=== PATIENT | male | born 1975 | race Caucasian/White ===

== ENCOUNTER 2017-04-14 19:22 | Inpatient (IN) ==
[2017-04-14] MEDS ORDERED: ONDANSETRON 4 MG/2 ML VIAL IV STA (19:59)
[2017-04-14] MEDS ORDERED: ASPIRIN 325 MG TABLET PO STA (19:59)
[2017-04-14] MEDS ORDERED: MORPHINE 2 MG/1 ML SYRINGE IV STA (19:59)
--- NOTE | 2017-04-14 20:02 | EKG Report ---
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
[2017-04-14] MEDS ORDERED: ONDANSETRON 4 MG/2 ML VIAL ONE (20:04)
[2017-04-14] MEDS ORDERED: ASPIRIN 325 MG TABLET ONE (20:05)
[2017-04-14] MEDS ORDERED: MORPHINE 2 MG/1 ML SYRINGE ONE (20:05)
--- NOTE | 2017-04-14 20:15 | Emergency Department Note ---
Dylon Real Mantricia, am scribing for, and in the presence of, Abe Miranda MD 20:04. Ruth Real Charles R, MD, personally performed the services described in this documentation, ascribed by Lili Osborne in my presence, and it is both accurate and complete . Arrival - Arrival Chief Complaint: Chest Pain Stated Complaint: NSTEMI ED Nursing Triage Note: Patient to ED as a transfer from [facility] ED for further evalution of NSTEMI. Patient started having LLQ ABD pain 2 days ago and today around lunch, his chest began hurting which prompted him to go to the ED at [facility]. Patient was found to have elevated troponin, first 0.052, and seond series 0.062. Upon arrrival to [place], patient rates his pain 2/10 and states it is a burning sensation. Mode of Arrival: Stretcher Limitations: No Limitations Source: Patient Time Seen by Provider: 04/14/17 19:41 - History of Present Illness HPI Narrative: Pt is a 42 y/o white male arriving to ED by EMS as a transfer from [facility] ED for further evaluation of NSTEMI. Pt initially had LLQ abdominal pain 2 days ago and then his chest began to hurt, which prompted him to go to ED. [facility] records show that pt had an elevated troponin of 0.052 and later 0.062. At time of exam , pt denies any abdominal pain or chest pain. When pt experienced the chest pain, he states that it felt like "an elephant was sitting on his chest" and he became very nausea and broke out into a cold sweat. He has no Hx of heart problems but confirms a FHx of heart problems. Pt has a PMHx of 17 kidney stones and sleep apnea but denies seeking any medical advice for his sleep apnea. No other complaints were reported to ED. Onset (ago): day(s) Consistency: constant Severity: mild Allergies/Adverse Reactions: Allergies Allergy/AdvReac Type Severity Reaction Status Date / Time Sulfa (Sulfonamide Allergy Unknown/Unable Verified 04/14/17 19:37 Antibiotics) to obtain Home Medications: Home Medications Medication Instructions Recorded Confirmed Type No Known Home Medications [No 04/14/17 04/14/17 History Known Home Medications] Review of System - Review of System 12 point system: reviewed and no additional remarkable complaints except as stated - Review of System Constitutional: Absent: chills, diaphoresis, fever Eyes: Absent: pain Respiratory: Absent: cough Cardiovascular: Present: chest pain Gastrointestinal: Present: abdominal pain. Absent: nausea, vomiting Musculoskeletal: Absent: arm pain, back pain, leg pain, neck pain Medical,Surgical,& Family Hx - Medical History Respiratory: History of: Asthma Genitourinary: History of: Kidney Stones Musculoskeletal: History of: Back/Neck Problems, Musculoskeletal Problems (back surgery) - Social History Smoking Status: Never smoker Frequency of Alcohol Use: None Type of Drug Use: None Exam Vital Signs: Vital Signs Temperature 98.6 F 04/14/17 19:25 Pulse Rate 92 H 04/14/17 19:25 Respiratory Rate 18 04/14/17 20:15 Blood Pressure 153/104 04/14/17 19:25 O2 Sat by Pulse Oximetry 93 L 04/14/17 19:25 - General General appearance: alert, in no apparent distress - Head Head exam: Present: atraumatic, normocephalic, normal inspection - Eye Eye exam: Present: normal appearance, PERRL, EOMI - ENT ENT exam: Present: normal exam, normal oropharynx, mucous membranes moist, TM's normal bilaterally, normal external ear exam - Neck Neck exam: Present: normal inspection, full ROM, trachea midline. Absent: tenderness - Chest Chest inspection: Present: normal inspection, symmetric chest wall rise. Absent : tenderness - Respiratory Respiratory exam: Present: normal lung sounds bilaterally - Cardiovascular Cardiovascular exam: Present: regular rate, normal rhythm, normal heart sounds - Abdominal Exam Abdominal exam: Present: soft, normal bowel sounds. Absent: distention, tenderness, guarding, rebound - Extremities Exam Extremities exam: Present: normal inspection, full ROM, normal capillary refill. Absent: tenderness, pedal edema - Back Exam Back exam: Present: normal inspection, full ROM. Absent: tenderness - Neurological Exam Neurological exam: Present: alert, oriented X3, CN II-XII intact, normal gait, reflexes normal - Psychiatric Psychiatric exam: Present: normal affect, normal mood - Skin Skin exam: Present: warm, dry, intact, normal color Course - Consultations Consultation #1: Dr. Moulton accept the patient wanted a chest CT PE scan done first before he was admitted Time: 20:13 Results - Labs CBC & BMP: 04/14/17 20:38 04/14/17 20:38 Lab Results: I have reviewed the patients labs - Diagnostic Findings Procedure: CT - chest: image reviewed by me, report reviewed by me (Negative CT PE) Disposition Clinical Impression: Chest pain, Elevated troponin, NSTEMI (non-ST elevated myocardial infarction) Case discussed with: patient, patient's family Disposition: Still a Patient Condition: Stable Time of Disposition: 20:15
[2017-04-14 20:45] LABS: Basophils # 0.1 10*3/uL (0.0-0.2); Basophils % 0.5 % (0.0-0.8); Eosinophils # 0.2 10*3/uL (0.0-0.87); Eosinophils % 1.5 % (0.00-10.9); Hemoglobin 17.1 GM/DL (14.0-18.0); Immature Granulocytes % 0.5 %; Immature Granulocytes Absolute 0.06 #; Lymphocytes # 3.1 10*3/uL (1.4-4.0); Lymphocytes % 26.3 % (21.2-54.2); Mean Corpuscular HGB Conc 35.6 GM/DL (32-36); Mean Corpuscular Hemoglobin 30 PG (27-34); Mean Corpuscular Volume 84.8 FL (87-102); Mean Platelet Volume 9.6 FL (9.6-12.0); Monocytes # 0.9 10*3/uL (0.11-0.8); Monocytes % 7.5 % (1.7-12.7); Neutrophils # 7.4 10*3/uL (1.4-7.4); Neutrophils % 63.7 % (38.7-73.9); Platelet Count 209 T/CUMM (130-400); Red Blood Count 5.66 MC/CUMM (3.8-5.5); Red Cell Distribution Width 12.9 % (9.3-17.3); White Blood Count 11.7 T/CUMM (4-12)
[2017-04-14 21:09] LABS: Albumin 3.6 G/DL (3.4-5.0); Bilirubin,Total 0.4 MG/DL (0.2-1.0); Calcium 8.9 MG/DL (8.5-10.1); Magnesium 2.2 MG/DL (1.8-2.4); Osmolality,Calculated 273.8 MOS/KG (273-304); Potassium 3.7 MMOL/L (3.5-5.1); Total Protein 6.9 G/DL (6.4-8.3)
[2017-04-15] MEDS ORDERED: MAGNESIUM SULF RIDER 4 GM in PREMIX 1 EACH IV PRN (01:12)
[2017-04-15] MEDS ORDERED: ONDANSETRON 4 MG/2 ML VIAL IV PRN (01:12)
[2017-04-15] MEDS ORDERED: POTASSIUM CHLORIDE 20 MEQ TABLET PO PRN (01:12)
[2017-04-15] MEDS ORDERED: MAGNESIUM SULF RIDER 2 GM in PREMIX 1 EACH IV PRN ×2 (01:12→08:57)
[2017-04-15] MEDS ORDERED: MORPHINE 2 MG/1 ML SYRINGE IV PRN (01:12)
[2017-04-15] MEDS: NITROGLYCERIN 2% OINT 1 INCH/GM PACK TOP SCH ×4 (01:31→19:46)
--- NOTE | 2017-04-15 01:39 | EKG Report ---
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
[2017-04-15] MEDS ORDERED: SODIUM CHLORIDE 0.9% 1,000 ML IV SCH (02:00)
[2017-04-15] MEDS ORDERED: ENOXAPARIN 120 MG/0.8 ML SYRINGE SUBCUT SCH (02:00)
[2017-04-15 02:01] LABS: Basophils % 0.4 % (0.0-0.8); Eosinophils # 0.3 10*3/uL (0.0-0.87); Eosinophils % 2.3 % (0.00-10.9); Hematocrit 47.1 VOL% (42.0-52.0); Hemoglobin 16.6 GM/DL (14.0-18.0); Immature Granulocytes % 0.6 %; Immature Granulocytes Absolute 0.07 #; Lymphocytes # 3.2 10*3/uL (1.4-4.0); Lymphocytes % 28.8 % (21.2-54.2); Mean Corpuscular HGB Conc 35.2 GM/DL (32-36); Mean Corpuscular Hemoglobin 30 PG (27-34); Mean Corpuscular Volume 85.5 FL (87-102); Mean Platelet Volume 9.7 FL (9.6-12.0); Monocytes # 1.1 10*3/uL (0.11-0.8); Monocytes % 9.7 % (1.7-12.7); Neutrophils # 6.4 10*3/uL (1.4-7.4); Neutrophils % 58.2 % (38.7-73.9); Platelet Count 201 T/CUMM (130-400); Red Blood Count 5.51 MC/CUMM (3.8-5.5); Red Cell Distribution Width 12.8 % (9.3-17.3); White Blood Count 10.9 T/CUMM (4-12)
[2017-04-15 02:25] LABS: Albumin 3.4 G/DL (3.4-5.0); Bilirubin,Total 0.4 MG/DL (0.2-1.0); Calcium 8.3 MG/DL (8.5-10.1); Osmolality,Calculated 272.8 MOS/KG (273-304); Potassium 3.6 MMOL/L (3.5-5.1); Risk Ratio 5.96; Total Protein 6.4 G/DL (6.4-8.3); VLDL CHOLESTEROL 63.8 MG/DL
--- NOTE | 2017-04-15 06:24 | EKG Report ---
Stationary ECG Study 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
--- NOTE | 2017-04-15 06:58 | CT Report ---
CT chest PE study Indication: Chest pain, shortness of breath Comparison: None Technique: Multiple axial tomographic images of the chest were obtained after the administration of 80 cc Omnipaque 350 intravenous contrast. PE protocol followed. Coronal and sagittal maximum intensity projection images provided. Findings: No segmental or larger pulmonary embolism demonstrated. Heart size appears within normal limits. No significantly enlarged lymph nodes by CT size criteria. No evidence of aortic dissection. No focal consolidation, pleural effusion, or pneumothorax. Visualized upper abdomen demonstrates no acute abnormality. Visualized osseous and surrounding soft tissue structures demonstrate no acute abnormality. IMPRESSION: No segmental or larger pulmonary embolism demonstrated. Preliminary report was issued by [facility]. The CT exam was performed using one or more of the following dose reduction techniques: Automated exposure control, adjustment of the mA and/or kV according to patient size, or use of iterative reconstruction technique. PROCEDURE INTERPRETED AT [facility] DEPARTMENT OF RADIOLOGY Final Report Signed by: Dr Tevin Hull
--- NOTE | 2017-04-15 08:21 | XRay Report ---
XR chest 1V portable Indication: SOB Comparison: Chest x-ray dated April 14, 2017 Technique: Single frontal view of the chest. Findings: The cardiomediastinal silhouette is stable in configuration. Continued elevation of the right hemidiaphragm. No focal consolidation, pleural effusion, or pneumothorax. Visualized osseous and surrounding soft tissue structures appear grossly unchanged. IMPRESSION: No acute cardiopulmonary process demonstrated. Elevation of the right hemidiaphragm. PROCEDURE INTERPRETED AT [facility] DEPARTMENT OF RADIOLOGY Final Report Signed by: Dr Tevin Hull
--- NOTE | 2017-04-15 08:50 | Cardiology History & Physical ---
Assessment and Plan - Time spent with patient Time spent with patient: Greater than 30 minutes (1) Hypertension Status: Chronic Assessment and plan: SEE PLAN OF CARE LISTED BELOW Current Visit: Yes (2) Dyslipidemia Status: Chronic Assessment and plan: SEE PLAN OF CARE LISTED BELOW Current Visit: Yes (3) Blood glucose elevated Status: Acute Assessment and plan: SEE PLAN OF CARE LISTED BELOW Current Visit: Yes (4) Obesity Status: Chronic Assessment and plan: SEE PLAN OF CARE LISTED BELOW Current Visit: Yes Qualifiers: Obesity classification: adult class 3 (BMI >= 40) Body mass index: BMI 40.0 -44.9 (5) Sleep apnea Status: Chronic Assessment and plan: SEE PLAN OF CARE LISTED BELOW Current Visit: Yes (6) Chest pain Status: Acute Assessment and plan: SEE PLAN OF CARE LISTED BELOW Current Visit: Yes (7) Elevated troponin Status: Acute Assessment and plan: SEE PLAN OF CARE LISTED BELOW Current Visit: Yes History of Present Illness Chief complaint: chest pain, elevated troponin 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 History of frequent kidney stones, untreated sleep apnea but otherwise denies significant medical problems. No known prior history of coronary artery disease. Admitted April 14, 2017 to telemetry after being evaluated at [facility] for complaints of chest pain. Cardiac biomarkers were mildly elevated (troponin 0.062 initially, now 0.253). Wednesday, patient began to experience left lower quadrant abdominal pain, diarrhea after eating a " Blooming Onion." This lasted until Wednesday morning. Wednesday afternoon, while sitting, he began to experience pressure in the center of his chest described as "an elephant sitting on my chest." There was no radiation but was associated with shortness of breath and diaphoresis. He could identify no aggravating nor any alleviating factors. He rates the discomfort as a 7 on a scale of 1-10. Currently chest pain-free. EKG does not reveal AL. He has been given therapeutic dose of Lovenox, aspirin, beta-tulio, nitrates and lipid-lowering agent. 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 D-dimer was elevated at 1.5. Underwent CT chest, PE protocol which revealed no evidence of pulmonary emboli. Patient does have untreated sleep apnea, previously diagnosed but unable to wear mask. Mallampati Airway class III-IV, neck circumference greater than 44 cm. Blood glucose levels elevated to 41. No prior history of diabetes. Will add hemoglobin A1c. Echocardiogram. At this time, I will keep the patient NPO, will further discuss with Dr. Harris and await additional recommendations. Should the patient need heart catheterization, may consider radial approach given patient's untreated sleep apnea. ASSESSMENT/PLAN: 1. CHEST PAIN - concerning for angina. 2. ELEVATED TROPONIN -suspicious for NST TIMMY. Continue to follow. Possible heart catheterization this morning. 3. UNTREATED HYPERTENSION - beta-blockade was initiated this morning. 4. DYSLIPIDEMIA - LDL 91. Should the patient have heart disease and/or diabetes, he will be diagnosed with dyslipidemia we will continue a lipid- lowering 5. ELEVATED GLUCOSE - hemoglobin A1c. This will be a new diagnosis is diabetes diagnosis is made. 6. UNTREATED SLEEP APNEA - will consult sleep medicine as the patient will definitely benefit from routine use of a sleep device. Home Medications Medication Instructions Recorded Confirmed Type No Known Home Medications [No 04/14/17 04/14/17 History Known Home Medications] Allergies Allergy/AdvReac Type Severity Reaction Status Date / Time Sulfa (Sulfonamide Allergy Unknown/Unable Verified 04/14/17 19:37 Antibiotics) to obtain Review of systems: REVIEW OF SYSTEMS: - Constitutional Constitutional: Present: Fatigue. Absent: syncope, anorexia, night sweats - EENT Eyes: Absent: blurry vision, loss of vision, diplopia Ears: Absent: decreased hearing, ear pain, ear discharge - Cardiovascular Cardiovascular: Present: chest pain at rest and with exertion, dyspnea on exertion. Denies edema, palpitations. Absent: chest pain with deep breath, claudication - Respiratory Respiratory: Present: MISHRA, denies cough. Absent: wheezing, hemoptysis, change in phlegm color - Gastrointestinal Gastrointestinal: Present: abdominal pain, hematemesis, hematochezia, melena, change in bowel habits, nausea - Genitourinary Genitourinary: Absent: difficulty urinating, dysuria, urinary hesitancy, flank pain - Musculoskeletal Musculoskeletal: Present: back pain Absent: joint swelling, muscle cramps, muscle weakness - Neurological Neurological: Present: normal gait without frequent falls. Absent: dizziness, hemiparesis - Psychiatric Psychiatric: Absent: anxiety, depression, difficulty concentrating - Endocrine Endocrine: Present: fatigue. Absent: cold intolerance, heat intolerance, polyuria, polyphagia, polydipsia - Hematologic/Lymphatic Hematologic/Lymphatic: Present: easy bruising. Absent: easy bleeding -Integumentary Integumentary: Absent: lesions, rashes, skin breakdown Medical,Surgical,& Family Hx - Medical History Cardio: History of: Hypertension No history of: CAD, AL Respiratory: History of: Asthma Genitourinary: History of: Kidney Stones (pt states has had kidney stones 17 times) Musculoskeletal: History of: Back/Neck Problems, Musculoskeletal Problems (back surgery) Hematology: No history of: Anemia, Blood Disorders Other: No history of: Cancer - Family History Family History: Reports;: Additional Family History (father-CHF, brother-AL) - Social History Smoking Status: Never smoker Have you smoked in the last 12 months: No Frequency of Alcohol Use: None Type of Drug Use: None Marital Status: Lives With:: Spouse Functional capacity: independent ambulation Cardiology Physical Exam - Constitutional Vitals: Vital Signs Temp Pulse Resp BP Pulse Ox 97.6 F 80 18 124/70 93 L 04/15/17 08:00 04/15/17 08:00 04/15/17 08:00 04/15/17 08:00 04/15/17 08:00 Intake and Output 04/14/17 04/15/17 04/15/17 23:59 07:59 15:59 Intake Total 200 / 200 Output Total 400 / 400 Balance -200 / -200 Intake: Oral 200 / 200 Output: Urine 400 / 400 Other: # Bowel Movements 1 Weight 129.274 kg 131.315 kg Patient Weight 04/15/17 23:59 Weight 131.315 kg Exam: General: [Appears well with no apparent distress.] [Pleasant and cooperative. ] [Appears comfortable.] HEENT: [PERRL, normocephalic, atraumatic. Mucous membranes moist. No jaundice noted. Conjunctiva moist and clear, sclerae anicteric. Mallampati Airway Class III-IV, neck circumference >44cm] Neck: Unable to assess for JVD due to habitus. No thyromegaly or lymphadenopathy noted. No carotid bruit appreciated Cardiac: [Regular rate and rhythm.] [No murmur rub or gallop.] Lungs: [Clear to auscultation without accessory muscle use to assist the respiratory pattern.] Not requiring oxygen Abdomen: Soft, bowel sounds normoactive. Nontender and nondistended. Epigastric tenderness to touch. No abdominal bruit or thrill noted. No masses noted. Musculoskeletal: No fluid collection. Decreased range of motion is noted. Extremities: No clubbing, cyanosis noted. [ No edema noted.] Upper extremity pulses 2+. Lower extremity pulses 2+. Capillary refill less than 3 seconds. Skin: No unusual lesions or rashes. No skin breakdown appreciated. Neuro: Awake, alert and oriented 3. Moves all extremities well without hemiparesis or paralysis. No essential tremor is appreciated. Result/EKG - Labs CBC & BMP: 04/15/17 01:46 04/15/17 01:46 Lab Results: I have reviewed the past 24 hour labs Labs: Laboratory Results - last 24 hr 04/14/17 04/14/17 04/14/17 00:08 20:38 20:38 WBC RBC Hgb Hct MCV MCH MCHC RDW Plt Count MPV Neut % (Auto) Lymph % (Auto) [place] % (Auto) Eos % (Auto) Baso % (Auto) Neut # (Auto) Lymph # (Auto) [place] # (Auto) Eos # (Auto) Baso # (Auto) Immature Gran % Nucleated RBC % Immature Gran # Nucleated RBCs # Immature Plt Fraction D-Dimer, Quantitative 1.3 Sodium 137 Potassium 3.7 Chloride 101 Carbon Dioxide 28 Anion Gap 11.7 BUN 7 Creatinine 0.70 GFR Calculation 165 BUN/Creatinine Ratio 10.00 Glucose 149 H Calculated Osmolality 273.8 Calcium 8.9 Magnesium 2.2 Total Bilirubin 0.40 AST 32 ALT 45 Alkaline Phosphatase 35 L Troponin I 0.234 H B-Natriuretic Peptide Total Protein 6.9 Albumin 3.6 Globulin 3.3 Albumin/Globulin Ratio 1.0 L Triglycerides Cholesterol LDL Cholesterol VLDL Cholesterol HDL Cholesterol Heart Disease Risk Ratio Lipase 102.0 Free T4 TSH 3rd Generation 04/14/17 04/14/17 04/14/17 20:38 20:38 20:38 WBC 11.7 RBC 5.66 H Hgb 17.1 Hct 48.0 MCV 84.8 L MCH 30 MCHC 35.6 RDW 12.9 Plt Count 209 MPV 9.6 Neut % (Auto) 63.7 Lymph % (Auto) 26.3 [place] % (Auto) 7.5 Eos % (Auto) 1.5 Baso % (Auto) 0.5 Neut # (Auto) 7.4 Lymph # (Auto) 3.1 [place] # (Auto) 0.9 H Eos # (Auto) 0.2 Baso # (Auto) 0.1 Immature Gran % 0.5 Nucleated RBC % 0.0 Immature Gran # 0.06 Nucleated RBCs # 0.00 Immature Plt Fraction 0.0 D-Dimer, Quantitative Sodium Potassium Chloride Carbon Dioxide Anion Gap BUN Creatinine GFR Calculation BUN/Creatinine Ratio Glucose Calculated Osmolality Calcium Magnesium Total Bilirubin AST ALT Alkaline Phosphatase Troponin I 0.139 H D B-Natriuretic Peptide 7 Total Protein Albumin Globulin Albumin/Globulin Ratio Triglycerides Cholesterol LDL Cholesterol VLDL Cholesterol HDL Cholesterol Heart Disease Risk Ratio Lipase Free T4 TSH 3rd Generation 04/15/17 04/15/17 04/15/17 01:46 01:46 01:46 WBC RBC Hgb Hct MCV MCH MCHC RDW Plt Count MPV Neut % (Auto) Lymph % (Auto) [place] % (Auto) Eos % (Auto) Baso % (Auto) Neut # (Auto) Lymph # (Auto) [place] # (Auto) Eos # (Auto) Baso # (Auto) Immature Gran % Nucleated RBC % Immature Gran # Nucleated RBCs # Immature Plt Fraction D-Dimer, Quantitative Sodium Potassium Chloride Carbon Dioxide Anion Gap BUN Creatinine GFR Calculation BUN/Creatinine Ratio Glucose Calculated Osmolality Calcium Magnesium Total Bilirubin AST ALT Alkaline Phosphatase Troponin I 0.253 H D B-Natriuretic Peptide Total Protein Albumin Globulin Albumin/Globulin Ratio Triglycerides Cholesterol LDL Cholesterol VLDL Cholesterol HDL Cholesterol Heart Disease Risk Ratio Lipase Free T4 1.40 TSH 3rd Generation 2.650 04/15/17 04/15/17 04/15/17 01:46 01:46 01:46 WBC 10.9 RBC 5.51 H Hgb 16.6 Hct 47.1 MCV 85.5 L MCH 30 MCHC 35.2 RDW 12.8 Plt Count 201 MPV 9.7 Neut % (Auto) 58.2 Lymph % (Auto) 28.8 [place] % (Auto) 9.7 Eos % (Auto) 2.3 Baso % (Auto) 0.4 Neut # (Auto) 6.4 Lymph # (Auto) 3.2 [place] # (Auto) 1.1 H Eos # (Auto) 0.3 Baso # (Auto) 0.0 Immature Gran % 0.6 Nucleated RBC % 0.0 Immature Gran # 0.07 Nucleated RBCs # 0.00 Immature Plt Fraction 0.0 D-Dimer, Quantitative Sodium 137 Potassium 3.6 Chloride 100 Carbon Dioxide 30 Anion Gap 10.6 BUN 7 Creatinine 0.80 GFR Calculation 156 BUN/Creatinine Ratio 8.00 Glucose 143 H Calculated Osmolality 272.8 L Calcium 8.3 L Magnesium 2.0 Total Bilirubin 0.40 AST 45 H ALT 48 Alkaline Phosphatase 30 L Troponin I B-Natriuretic Peptide < 2 L Total Protein 6.4 Albumin 3.4 Globulin 3.0 Albumin/Globulin Ratio 1.1 Triglycerides 319 H Cholesterol 161 LDL Cholesterol 91.0 VLDL Cholesterol 63.8 HDL Cholesterol 27 L Heart Disease Risk Ratio 5.96 Lipase Free T4 TSH 3rd Generation - Diagnostic Findings Procedure: Chest x-ray: report reviewed by me - EKG EKG results: interpreted by me EKG shows: sinus rhythm
[2017-04-15] MEDS ORDERED: POTASSIUM CHLORIDE RIDER 10 MEQ in PREMIX 1 EACH IV PRN (08:57)
[2017-04-15] MEDS ORDERED: DIAZEPAM 5 MG TABLET PO ONE (08:57)
[2017-04-15] MEDS ORDERED: diphenhydrAMINE CAP 25 MG CAPSULE PO ONE (08:57)
[2017-04-15] MEDS ORDERED: LISINOPRIL/HCTZ 10-12.5 MG TABLET PO SCH (09:00)
[2017-04-15] MEDS ORDERED: ASPIRIN EC 325 MG TABLET PO SCH (09:00)
[2017-04-15] MEDS ORDERED: HEPARIN/NACL 0.9% 2 UNITS/ML 1,000 ML IV ONE (09:33)
[2017-04-15] MEDS ORDERED: NITROGLYCERIN DRIP 50 MG/250 ML BOTTLE IV ONE (09:41)
[2017-04-15] MEDS ORDERED: LIDOCAINE 1% 20 ML VIAL ONE (09:41)
[2017-04-15] MEDS ORDERED: VERAPAMIL 5 MG/2 ML VIAL ONE (09:42)
[2017-04-15] MEDS: ROSUVASTATIN 20 MG TABLET PO SCH ×3 (09:44→21:21)
[2017-04-15] MEDS: PANTOPRAZOLE 40 MG TABLET PO SCH (09:51)
[2017-04-15] MEDS: CARVEDILOL 6.25 MG TABLET PO SCH ×2 (09:51→21:22)
[2017-04-15] MEDS ORDERED: MIDAZOLAM 2 MG/2 ML VIAL ONE (10:00)
[2017-04-15] MEDS ORDERED: fentaNYL 100 MCG/2 ML VIAL ONE (10:00)
--- NOTE | 2017-04-15 10:09 | History and Physical Update ---
Sedation H&P Update - History and Physical H&P was reviewed, the patient examined and there: are no changes in the patients condition since last H&P was completed. - Sedation Plan for Sedation: moderate Patient Consent: Procedure disscussed with patient and patinet has consented., Risks and benefits were discussed with patient,including infection,, bleeding, injury to surrounding structures, seizure, temporary nerve, Patient understands and accepts potential risks/benefits and agrees to, proceed. ASA Class: III Airway Assessment: Class IV: Only hard palate visible
--- NOTE | 2017-04-15 10:43 | Cardiac Catheterization ---
Date of Procedure:: 04/15/17 Pre-op Diagnosis: Patient with minimally elevated troponins and symptoms suspicious for angina with risk factors Post-op diagnosis: same Procedure: Procedures performed: 1: Left heart catheterization 2: Coronary arteriography 3: Left ventriculography After obtaining informed consent the patient was brought to the cardiac catheterization lab where the right wrist was prepped and draped in the usual sterile fashion. Using intravenous sedation and local anesthesia a needle was inserted into the right radial artery and a guidewire was positioned without difficulty. A 5 Burkinan sheath was advanced over the guidewire and positioned in the right radial artery without difficulty. Patient was given verapamil and nitroglycerin intra-arterial as a vasodilator. At this point a Isaac catheter was advanced over a guidewire under fluoroscopic control to the ascending aorta where the left main coronary ostium was engaged and multiple angiograms were obtained in multiple angulations. Next this catheter was manipulated into the right coronary artery and multiple angiograms of the right coronary artery was undertaken in multiple views. After adequate angiograms the right coronary were obtained this catheter then with the assistance of a guidewire was advanced across the aortic valve into the left ventricle and a left ventriculogram was obtained in the LAWTON projection injecting 30 mL of contrast at 12 mL/s. After adequate ventriculography was obtained this catheter was pulled back from the ventricle to the aorta under hemodynamic monitoring and removed. Patient then underwent T R band application 2 mm above the radial skin entry site. 15 mL of air was in injected into the hemo band and the radial sheath was pulled. Air was removed from the TR band and 1 mL intervals until a arterial flash was noted. Additional 2 mL of air were added back to the TR band at this point. The patient tolerated procedure well. His right hand was warm with good capillary fill noted. Patient was transferred to the holding area having suffered no significant immediate complications. Hemodynamics: Please see accompanying data sheet Coronary angiography: Left coronary artery: Left main coronary artery is well-developed with a 30% area of stenosis in its distal portion. The circumflex is noted to have an area of discrete 80% stenosis just proximal to the takeoff of a moderate-sized first marginal branch. The remainder of the circumflex appears to be free of significant obstructing lesions. The left anterior descending coronary artery is a large vessel that extends around the apex of the ventricle. The left anterior descending coronary has a complex 90% stenosis at the takeoff of a large first diagonal. The first diagonal has an ostial 99% area stenosis with CELIA grade II flow down the vessel noted. The remainder of the LAD and its branches appear to be free of significant obstructing lesions. Right coronary artery: The right coronary is a large dominant vessel possesses a tubular area of 80% stenosis in its distal portion. The remainder of the right coronary artery is free of significant obstructing lesions. Left ventriculography: After injection of contrast in the left ventricle is noted be of normal size with normal contractility. Mitral and aortic structures appear normal by ventriculography. Conclusions: 1: Three-vessel coronary disease as described above with significant complex LAD disease and ostial diagonal as well as ostial marginal and disal right coronary disease for evaluation related to surgical revascularization. 2: Normal left ventricular systolic function and ejection fraction in the 55% range 3: Normal end-diastolic pressures at rest. Discussion and recommendations: This patient presents with chest pain and elevated troponins. He has multiple risk factors for premature coronary disease. He has three-vessel coronary disease as described above which I think is best approached surgically given the number and complexity of the stenosed vessel segments. We will ask Dr. Cuello to review. Findings have been reviewed with the patient and with his family. Surgeon / Physician: Bon Harris - Medications / Follow-up
--- NOTE | 2017-04-15 13:25 | Cardiothoracic Progress Note ---
Cardiothoracic Subjective Interval history: Patient is a 42-year-old man who had a severe episode of substernal chest pain necessitating hospitalization and the observation that his troponins were mildly elevated. He was transferred to this hospital for evaluation including cardiac catheterization which demonstrated severe triple-vessel coronary artery disease. Patient has been referred for bypass surgery and I agree that this is the best course. We will plan to keep him in the hospital because of his recent acute KS but it will probably be early next week before I can do the surgery either Wednesday or Wednesday. I should be able to let them know for sure either tomorrow or Wednesday. I discussed all that with the patient and with his and family. I think that there agreeable to staying in the hospital and to proceeding with surgery. Exam (Progress Note) - Constitutional Vitals: Period Temp Pulse Resp BP Sys/Freeman Pulse Ox Last 24 Hr 96.8 F-98.6 F 80-95 18-24 124-159/57-104 92-98 Result/EKG - Labs CBC & BMP: 04/15/17 01:46 04/15/17 01:46 Labs: Laboratory Results - last 24 hr 04/14/17 04/14/17 04/14/17 00:08 20:38 20:38 WBC RBC Hgb Hct MCV MCH MCHC RDW Plt Count MPV Neut % (Auto) Lymph % (Auto) [place] % (Auto) Eos % (Auto) Baso % (Auto) Neut # (Auto) Lymph # (Auto) [place] # (Auto) Eos # (Auto) Baso # (Auto) Immature Gran % Nucleated RBC % Immature Gran # Nucleated RBCs # Immature Plt Fraction D-Dimer, Quantitative 1.3 Sodium 137 Potassium 3.7 Chloride 101 Carbon Dioxide 28 Anion Gap 11.7 BUN 7 Creatinine 0.70 GFR Calculation 165 BUN/Creatinine Ratio 10.00 Glucose 149 H Hemoglobin A1c Calculated Osmolality 273.8 Calcium 8.9 Magnesium 2.2 Total Bilirubin 0.40 AST 32 ALT 45 Alkaline Phosphatase 35 L Troponin I 0.234 H B-Natriuretic Peptide Total Protein 6.9 Albumin 3.6 Globulin 3.3 Albumin/Globulin Ratio 1.0 L Triglycerides Cholesterol LDL Cholesterol VLDL Cholesterol HDL Cholesterol Heart Disease Risk Ratio Lipase 102.0 Free T4 TSH 3rd Generation 04/14/17 04/14/17 04/14/17 20:38 20:38 20:38 WBC 11.7 RBC 5.66 H Hgb 17.1 Hct 48.0 MCV 84.8 L MCH 30 MCHC 35.6 RDW 12.9 Plt Count 209 MPV 9.6 Neut % (Auto) 63.7 Lymph % (Auto) 26.3 [place] % (Auto) 7.5 Eos % (Auto) 1.5 Baso % (Auto) 0.5 Neut # (Auto) 7.4 Lymph # (Auto) 3.1 [place] # (Auto) 0.9 H Eos # (Auto) 0.2 Baso # (Auto) 0.1 Immature Gran % 0.5 Nucleated RBC % 0.0 Immature Gran # 0.06 Nucleated RBCs # 0.00 Immature Plt Fraction 0.0 D-Dimer, Quantitative Sodium Potassium Chloride Carbon Dioxide Anion Gap BUN Creatinine GFR Calculation BUN/Creatinine Ratio Glucose Hemoglobin A1c Calculated Osmolality Calcium Magnesium Total Bilirubin AST ALT Alkaline Phosphatase Troponin I 0.139 H D B-Natriuretic Peptide 7 Total Protein Albumin Globulin Albumin/Globulin Ratio Triglycerides Cholesterol LDL Cholesterol VLDL Cholesterol HDL Cholesterol Heart Disease Risk Ratio Lipase Free T4 TSH 3rd Generation 04/15/17 04/15/17 04/15/17 01:43 01:46 01:46 WBC RBC Hgb Hct MCV MCH MCHC RDW Plt Count MPV Neut % (Auto) Lymph % (Auto) [place] % (Auto) Eos % (Auto) Baso % (Auto) Neut # (Auto) Lymph # (Auto) [place] # (Auto) Eos # (Auto) Baso # (Auto) Immature Gran % Nucleated RBC % Immature Gran # Nucleated RBCs # Immature Plt Fraction D-Dimer, Quantitative Sodium Potassium Chloride Carbon Dioxide Anion Gap BUN Creatinine GFR Calculation BUN/Creatinine Ratio Glucose Hemoglobin A1c 9.4 H Calculated Osmolality Calcium Magnesium Total Bilirubin AST ALT Alkaline Phosphatase Troponin I 0.253 H D B-Natriuretic Peptide Total Protein Albumin Globulin Albumin/Globulin Ratio Triglycerides Cholesterol LDL Cholesterol VLDL Cholesterol HDL Cholesterol Heart Disease Risk Ratio Lipase Free T4 TSH 3rd Generation 2.650 04/15/17 04/15/17 04/15/17 01:46 01:46 01:46 WBC 10.9 RBC 5.51 H Hgb 16.6 Hct 47.1 MCV 85.5 L MCH 30 MCHC 35.2 RDW 12.8 Plt Count 201 MPV 9.7 Neut % (Auto) 58.2 Lymph % (Auto) 28.8 [place] % (Auto) 9.7 Eos % (Auto) 2.3 Baso % (Auto) 0.4 Neut # (Auto) 6.4 Lymph # (Auto) 3.2 [place] # (Auto) 1.1 H Eos # (Auto) 0.3 Baso # (Auto) 0.0 Immature Gran % 0.6 Nucleated RBC % 0.0 Immature Gran # 0.07 Nucleated RBCs # 0.00 Immature Plt Fraction 0.0 D-Dimer, Quantitative Sodium 137 Potassium 3.6 Chloride 100 Carbon Dioxide 30 Anion Gap 10.6 BUN 7 Creatinine 0.80 GFR Calculation 156 BUN/Creatinine Ratio 8.00 Glucose 143 H Hemoglobin A1c Calculated Osmolality 272.8 L Calcium 8.3 L Magnesium 2.0 Total Bilirubin 0.40 AST 45 H ALT 48 Alkaline Phosphatase 30 L Troponin I B-Natriuretic Peptide Total Protein 6.4 Albumin 3.4 Globulin 3.0 Albumin/Globulin Ratio 1.1 Triglycerides 319 H Cholesterol 161 LDL Cholesterol 91.0 VLDL Cholesterol 63.8 HDL Cholesterol 27 L Heart Disease Risk Ratio 5.96 Lipase Free T4 1.40 TSH 3rd Generation 04/15/17 01:46 WBC RBC Hgb Hct MCV MCH MCHC RDW Plt Count MPV Neut % (Auto) Lymph % (Auto) [place] % (Auto) Eos % (Auto) Baso % (Auto) Neut # (Auto) Lymph # (Auto) [place] # (Auto) Eos # (Auto) Baso # (Auto) Immature Gran % Nucleated RBC % Immature Gran # Nucleated RBCs # Immature Plt Fraction D-Dimer, Quantitative Sodium Potassium Chloride Carbon Dioxide Anion Gap BUN Creatinine GFR Calculation BUN/Creatinine Ratio Glucose Hemoglobin A1c Calculated Osmolality Calcium Magnesium Total Bilirubin AST ALT Alkaline Phosphatase Troponin I B-Natriuretic Peptide < 2 L Total Protein Albumin Globulin Albumin/Globulin Ratio Triglycerides Cholesterol LDL Cholesterol VLDL Cholesterol HDL Cholesterol Heart Disease Risk Ratio Lipase Free T4 TSH 3rd Generation Quality Measures - VTE Contraindication to Pharmacological VTE Prophylaxis: High Risk of Bleeding Specialty Discharge - Follow Up or Referrals
--- NOTE | 2017-04-15 14:00 | Sleep Medicine Consult ---
Assessment and Plan (1) Sleep apnea Status: Chronic Assessment and plan: Mr. Peterson has a positive history of obstructive sleep apnea diagnosed originally in 2004 under the direction of Dr. Akil Salmon. At that time, his apnea was moderate severity with a diagnostic AHI of 20.8 but with profound oxygen desaturations as low as 60%. He reports significant weight loss since the time of his diagnostic study and states his snoring has improved drastically with weight loss. He is not certain that he still suffers from obstructive sleep apnea. Since he will be hospitalized until his coronary artery bypass grafting, I recommend a HSAT to determine his sleep apnea status. If positive, treatment can be initiated and monitored. I discussed in detail the increased health risks he faces especially in regards to heart disease if his sleep apnea remains untreated. Both he and his verbalized understanding and do agree for further testing. Current Visit: Yes History of Present Illness Chief complaint: hx WILLAM History of present illness: Mr. Peterson is a 42 year old male who was admitted yesterday through the emergency room with shortness of breath and chest pain. He underwent heart catheterization earlier today and was found to have significant three-vessel disease which will require coronary artery bypass grafting. He has a known history of obstructive sleep apnea and was [place] [address] Akil Salmon. At that time, he had a diagnostic respiratory disturbance index of 20.8 along with oxygen desaturations as low as 60%. CPAP therapy was prescribed for treatment. He utilized a CPAP device for approximately 2 or 3 months but developed intolerance to therapy due to condensation in his tubing. He did not maintain follow-up appointments with Dr. Salmon in regards to his sleep apnea. His his , who is at his bedside admits that her has continued to snore over the years but she denies any apnea during his sleep. He has lost significant weight from his original study and states his snoring improved with weight loss. He does have a set sleep schedule going to bed at 9 PM and awakening at 5:30 AM. He denies any difficulty initiating sleep but does have frequent sleep disruption. He has nocturia up to 3 or 4 times per night. He does not awaken with any significant headaches but does have fatigue throughout the day. 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 Wednesday afternoons he will often take a long nap if time allows. At times, he experiences some discomfort in his lower extremities but denies that being a factor in his ability to sleep. His medical history is positive for ischemic heart disease, dyslipidemia, obesity, elevated blood glucose and obesity. He has been followed by Dr. Harris from cardiology. Home Medications Medication Instructions Recorded Confirmed Type No Known Home Medications [No 04/14/17 04/14/17 History Known Home Medications] Allergies Allergy/AdvReac Type Severity Reaction Status Date / Time Sulfa (Sulfonamide Allergy Unknown/Unable Verified 04/14/17 19:37 Antibiotics) to obtain - Constitutional Constitutional: Present: daytime sleepiness, fatigue, night sweats, weight loss. Absent: headache(s), stops breathing during sleep - EENT Nose, mouth and throat: Absent: nasal congestion - Cardiovascular Cardiovascular: Present: dyspnea on exertion. Absent: chest pain at rest, orthopnea, palpitations - Respiratory Respiratory: Present: dyspnea on exertion, snoring. Absent: cough, wheezing - Gastrointestinal Gastrointestinal: Present: heartburn. Absent: abdominal pain, constipation, diarrhea - Genitourinary Genitourinary: Present: nocturia, urinary frequency - Musculoskeletal Musculoskeletal: Present: arthralgias. Absent: muscle cramps - Neurological Neurological: Absent: headache(s), memory loss, syncope - Psychiatric Psychiatric: Absent: anxiety, depression - Endocrine Endocrine: Absent: cold intolerance, heat intolerance Exam ([place]) H&P - Constitutional Vitals: Period Temp Pulse Resp BP Sys/Freeman Pulse Ox Last 24 Hr 96.8 F-98.6 F 80-95 18-24 124-159/57-104 92-98 General appearance: over weight - Head Head exam: Present: normal inspection, normocephalic - Eye Pupils: Present: PRADIP - ENT ENT exam: Present: other (Mallampati class III) - Expanded ENT Exam ENT Exam Throat exam: Absent: post pharyngeal edema, post pharyngeal erythema - Neck Neck exam: Absent: lymphadenopathy, tenderness, thyromegaly - Respiratory Respiratory exam: Present: clear to auscultation bilaterally. Absent: rales, rhonchi, wheezes - Cardiovascular Cardiovascular exam: Absent: diastolic murmur, systolic murmur - GI/Abdominal GI/Abdominal exam: Present: normal bowel sounds, soft. Absent: tenderness - Extremities Exam Extremities exam: Present: normal capillary refill, full ROM. Absent: edema - Neurological Exam Neurological exam: Present: oriented X3 - Psychiatric Psychiatric exam: Present: normal affect, normal mood. Absent: anxious, depressed - Skin Skin exam: Present: normal color, warm, dry Medical,Surgical,& Family Hx - Medical History Cardio: History of: Hypertension No history of: CAD, [place] Respiratory: History of: Asthma Genitourinary: History of: Kidney Stones (pt states has had kidney stones 17 times) Musculoskeletal: History of: Back/Neck Problems, Musculoskeletal Problems (back surgery) Hematology: No history of: Anemia, Blood Disorders Other: No history of: Cancer - Family History Family History: Reports;: Additional Family History (father-CHF, brother-NE) - Social History Smoking Status: Never smoker Frequency of Alcohol Use: None Type of Drug Use: None Results - Labs CBC & BMP: 04/15/17 01:46 04/15/17 01:46 Quality Measures - VTE Contraindication to Pharmacological VTE Prophylaxis: High Risk of Bleeding Specialty Discharge - Follow Up or Referrals
[2017-04-15] MEDS: ENOXAPARIN 100 MG/ML SYRINGE SUBCUT SCH ×2 (14:18→22:03)
[2017-04-15] MEDS: ASPIRIN EC 81 MG TABLET PO SCH (14:18)
--- NOTE | 2017-04-15 19:31 | ECHO Report ---
Clayton Peterson Exam Date: 04/15/2017 15:30 Referring Physician: Technologist: Lore Garcia Age: 42 Ht (in): 71 Wt (lb): 289 Gender: M Exam Location: [facility] Echo Indications: chest pain, elevated troponin, HTN, dyslipidemia, sleep apnea BP: 140 / 80 HR: 75 Rhythm: Sinus Technical Quality: Fair IMPRESSIONS Mildly reduced LV systolic function, ejection fraction 40-45% Grade 1/4 diastolic dysfunction. Mild concentric left ventricular hypertrophy. MEASUREMENTS (Male / Female) Normal Values 2D ECHO LV Diastolic Diameter PLAX 4.2 cm 4.2 - 5.9 / 3.9 - 5.3 cm LV Systolic Diameter PLAX 2.6 cm LV Fractional Shortening PLAX 39.6 % IVS Diastolic Thickness 1.2 cm 0.6 - 1.0 / 0.6 - 0.9 cm LVPW Diastolic Thickness 1.3 cm 0.6 - 1.0 / 0.6 - 0.9 cm RV Internal Dim ED PLAX 2.6 cm Aortic Root Diameter 2.8 cm LA Systolic Diameter LX 3.5 cm 3.0 - 4.0 / 2.7 - 3.8 cm FINDINGS Left Ventricle Normal left ventricular cavity size. Mild concentric left ventricular hypertrophy with mild - moderate diastolic dysfunction. Left ventricular ejection fraction is estimated at 40-45 %. There is poor endocardial resolution which hinders regional wall motion assessment. Right Ventricle Normal right ventricular size. Right Atrium Normal right atrial size. Left Atrium Normal left atrial size. Mitral Valve Morphologically normal mitral valve. Aortic Valve The aortic valve is trileaflet, delicate and has normal motion. Tricuspid Valve Morphologically normal tricuspid valve. Pulmonic Valve Morphologically normal pulmonic valve. Pericardium No pericardial effusion. Aorta Normal size aortic root and proximal ascending aorta. Leila Moulton MD (Electronically Signed) Final Date: 15 April 2017 19:06
[2017-04-16] MEDS: NITROGLYCERIN 2% OINT 1 INCH/GM PACK TOP SCH ×5 (00:07→23:51)
[2017-04-16 05:18] LABS: Basophils % 0.5 % (0.0-0.8); Eosinophils # 0.3 10*3/uL (0.0-0.87); Eosinophils % 3.9 % (0.00-10.9); Hematocrit 44.5 VOL% (42.0-52.0); Hemoglobin 15.7 GM/DL (14.0-18.0); Immature Granulocytes % 0.5 %; Immature Granulocytes Absolute 0.04 #; Lymphocytes # 3.3 10*3/uL (1.4-4.0); Lymphocytes % 40.9 % (21.2-54.2); Mean Corpuscular HGB Conc 35.3 GM/DL (32-36); Mean Corpuscular Hemoglobin 31 PG (27-34); Mean Corpuscular Volume 86.7 FL (87-102); Mean Platelet Volume 9.9 FL (9.6-12.0); Monocytes # 0.7 10*3/uL (0.11-0.8); Monocytes % 8.2 % (1.7-12.7); Neutrophils # 3.8 10*3/uL (1.4-7.4); Platelet Count 199 T/CUMM (130-400); Red Blood Count 5.13 MC/CUMM (3.8-5.5); Red Cell Distribution Width 12.7 % (9.3-17.3); White Blood Count 8.2 T/CUMM (4-12)
[2017-04-16 05:49] LABS: Calcium 8.4 MG/DL (8.5-10.1); Calcium 8.6 MG/DL (8.5-10.1); Magnesium 2.3 MG/DL (1.8-2.4); Magnesium 2.4 MG/DL (1.8-2.4); Osmolality,Calculated 279.5 MOS/KG (273-304); Osmolality,Calculated 281.4 MOS/KG (273-304); Potassium 4.1 MMOL/L (3.5-5.1)
--- NOTE | 2017-04-16 08:09 | EKG Report ---
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
[2017-04-16] MEDS: CARVEDILOL 6.25 MG TABLET PO SCH ×2 (08:31→21:03)
[2017-04-16] MEDS: LOSARTAN 25 MG TABLET PO SCH (08:31)
[2017-04-16] MEDS: ASPIRIN EC 81 MG TABLET PO SCH (08:31)
[2017-04-16] MEDS: PANTOPRAZOLE 40 MG TABLET PO SCH (08:31)
--- NOTE | 2017-04-16 09:21 | Cardiothoracic Progress Note ---
Cardiothoracic Subjective Interval history: Patient has been pain-free. I am planning for surgery but unfortunately it is going to be Wednesday before I will be able to do it. I would be agreeable to letting the patient go home and return Wednesday for surgery on Wednesday but I will certainly defer to Dr. Harris and his team regarding this decision. Exam (Progress Note) - Constitutional Vitals: Period Temp Pulse Resp BP Sys/Freeman Pulse Ox Last 24 Hr 97 F-98.8 F 72-97 16-20 115-169/56-86 92-97 Result/EKG - Labs CBC & BMP: 04/16/17 04:35 04/16/17 04:35 Labs: Laboratory Results - last 24 hr 04/15/17 04/15/17 04/16/17 01:43 16:08 04:35 WBC 8.2 RBC 5.13 Hgb 15.7 Hct 44.5 MCV 86.7 L MCH 31 MCHC 35.3 RDW 12.7 Plt Count 199 MPV 9.9 Neut % (Auto) 46.0 Lymph % (Auto) 40.9 [place] % (Auto) 8.2 Eos % (Auto) 3.9 Baso % (Auto) 0.5 Neut # (Auto) 3.8 Lymph # (Auto) 3.3 [place] # (Auto) 0.7 Eos # (Auto) 0.3 Baso # (Auto) 0.0 Immature Gran % 0.5 Nucleated RBC % 0.0 Immature Gran # 0.04 Nucleated RBCs # 0.00 Immature Plt Fraction 0.0 Sodium Potassium Chloride Carbon Dioxide Anion Gap BUN Creatinine GFR Calculation BUN/Creatinine Ratio Glucose POC Glucose 179 H Hemoglobin A1c 9.4 H Calculated Osmolality Calcium Magnesium 04/16/17 04/16/17 04/16/17 04:35 04:35 07:50 WBC RBC Hgb Hct MCV MCH MCHC RDW Plt Count MPV Neut % (Auto) Lymph % (Auto) [place] % (Auto) Eos % (Auto) Baso % (Auto) Neut # (Auto) Lymph # (Auto) [place] # (Auto) Eos # (Auto) Baso # (Auto) Immature Gran % Nucleated RBC % Immature Gran # Nucleated RBCs # Immature Plt Fraction Sodium 139 140 Potassium 4.0 4.1 Chloride 103 104 Carbon Dioxide 29 29 Anion Gap 11.0 11.1 BUN 11 11 Creatinine 0.70 0.70 GFR Calculation 166 166 BUN/Creatinine Ratio 15.00 15.00 Glucose 171 H 170 H POC Glucose 152 H Hemoglobin A1c Calculated Osmolality 279.5 281.4 Calcium 8.4 L 8.6 Magnesium 2.3 2.4 Quality Measures - VTE Contraindication to Pharmacological VTE Prophylaxis: High Risk of Bleeding Specialty Discharge - Follow Up or Referrals
[2017-04-16] MEDS: ENOXAPARIN 100 MG/ML SYRINGE SUBCUT SCH (10:58)
--- NOTE | 2017-04-16 15:20 | Cardiology Progress Note ---
<Chapis Neumann E - Last Filed: 04/16/17 15:05> Assessment and Plan - Time spent with patient Time spent with patient: Greater than 30 minutes (1) Hypertension Status: Chronic Assessment and plan: SEE PLAN OF CARE LISTED BELOW Current Visit: Yes (2) Dyslipidemia Status: Chronic Assessment and plan: SEE PLAN OF CARE LISTED BELOW Current Visit: Yes (3) Obesity Status: Chronic Assessment and plan: SEE PLAN OF CARE LISTED BELOW Current Visit: Yes Qualifiers: Obesity classification: adult class 3 (BMI >= 40) Body mass index: BMI 40.0 -44.9 (4) Sleep apnea Status: Chronic Assessment and plan: SEE PLAN OF CARE LISTED BELOW Current Visit: Yes (5) Chest pain Status: Resolved Assessment and plan: SEE PLAN OF CARE LISTED BELOW Current Visit: Yes (6) Elevated troponin Status: Acute Assessment and plan: SEE PLAN OF CARE LISTED BELOW Current Visit: Yes (7) Diabetes Status: Chronic Assessment and plan: SEE PLAN OF CARE LISTED BELOW Current Visit: Yes (8) CAD (coronary artery disease) Status: Chronic Assessment and plan: SEE PLAN OF CARE LISTED BELOW Current Visit: Yes Qualifiers: Coronary Disease-Associated Artery/Lesion type: [place] artery [place] vs. 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 HARRIS SUMMARY: 42WM with risk factors significant for: (Untreated) hypertension, ( newly discovered) dyslipidemia, (newly diagnosed) diabetes, family history of premature coronary artery disease (brother AR at 35), obesity, sedentary lifestyle and non-compliance. History of frequent kidney stones, untreated sleep apnea. Admitted April 14, 2017 with NSTEMI (unstable angina). Underwent cardiac catheterization which revealed [address] Cuello was consulted for CABG. He is currently scheduled to undergo surgery Wednesday or Wednesday of next week. (CV Surgery schedule is full prior to this date.) Echo : EF 40-45%, grade 1 diastolic dysfunction, mild concentric LVH. No significant valvular abnormality. APRIL 16, 2017: Patient is doing well this morning. Has reported complaints of chest heaviness but this was improved with nitroglycerin paste last evening. I have ordered CIEs and EKG to be done now. No arrhythmias. Sleep medicine evaluated patient last night and he did undergo HSAT last evening. He does have a prior history of obstructive sleep apnea originally diagnosed in 2004. In the past, he has been noncompliant with his device for several years but is willing to try a new device. Greater than 45 minutes was spent today discussing multiple comorbidities and new diagnoses. In the past, patient has not followed up routinely with physicians. Hemoglobin A1c 9.4. This is a new diagnosis of diabetes. Initiating oral medications today. Continue sliding scale as needed. LDL 91. We will continue with lipid-lowering agent as he has quit taking his in the past. Triglycerides 319. Will start [place]-3 twice daily. Consult cardiac rehab. Will further discuss with Dr. Harris and await additional recommendations. ASSESSMENT/PLAN: 1. NSTEMI - currently chest pain-free. Some chest pain last evening but nitroglycerin was reapplied and this has improved. This occurred at rest therefore feel it is best to keep patient in the hospital until CABG. Cover with Lovenox therapeutic dosing twice daily. Continue nitrates. 2. 3VCAD - CABG next week if angina remains stable. 3. UNTREATED HYPERTENSION - tolerating Carvedilol, ARB. 4. DYSLIPIDEMIA - LDL 91. Crestor 10 mg orally each evening. Triglycerides 319 therefore starting omega-3 2 g orally twice daily. 5. DIABETES - starting Glipizide 5mg orally BID, continue sliding scale. Diabetic education. New diagnosis 6. UNTREATED SLEEP APNEA - appreciate sleep medicines management 7. OBESITY - dietary counseling prior to discharge. Cardiac rehab consult. 8. NON-COMPLIANCE - history of. Believe he is willing to follow recommended instructions. 9. ICM - EF 40% - 45%. Continue current plan of care. Exam (Progress Note) - Constitutional Vitals: Period Temp Pulse Resp BP Sys/Freeman Pulse Ox Last 24 Hr 97 F-98.8 F 71-97 16-20 115-169/56-86 93-98 Exam: General: [Appears well with no apparent distress.] [Pleasant and cooperative. ] [Appears comfortable.] HEENT: [PERRL, normocephalic, atraumatic. Mucous membranes moist. No jaundice noted. Conjunctiva moist and clear, sclerae anicteric] Neck: Difficult to assess for JVD due to habitus. No thyromegaly or lymphadenopathy noted. No carotid bruit appreciated Cardiac: [Regular rate and rhythm.] [No obvious murmur rub or gallop.] Lungs: [Clear to auscultation without accessory muscle use to assist the respiratory pattern.] Not requiring oxygen Abdomen: Soft, bowel sounds normoactive. Nontender and nondistended. No abdominal bruit or thrill noted. No masses noted. Musculoskeletal: No fluid collection. Decreased range of motion is noted. Extremities: Right wrist soft, free of hematoma or bruit. No clubbing, cyanosis noted. [ No edema noted.] Upper extremity pulses 2+. Lower extremity pulses 2+. Capillary refill less than 3 seconds. Skin: No unusual lesions or rashes. No skin breakdown appreciated. Neuro: Awake, alert and oriented 3. Moves all extremities well without hemiparesis or paralysis. No essential tremor is appreciated. Result/EKG - Labs CBC & BMP: 04/16/17 04:35 04/16/17 04:35 Lab Results: I have reviewed the past 24 hour labs Labs: Laboratory Results - last 24 hr 04/15/17 04/16/17 04/16/17 16:08 04:35 04:35 WBC 8.2 RBC 5.13 Hgb 15.7 Hct 44.5 MCV 86.7 L MCH 31 MCHC 35.3 RDW 12.7 Plt Count 199 MPV 9.9 Neut % (Auto) 46.0 Lymph % (Auto) 40.9 [place] % (Auto) 8.2 Eos % (Auto) 3.9 Baso % (Auto) 0.5 Neut # (Auto) 3.8 Lymph # (Auto) 3.3 [place] # (Auto) 0.7 Eos # (Auto) 0.3 Baso # (Auto) 0.0 Immature Gran % 0.5 Nucleated RBC % 0.0 Immature Gran # 0.04 Nucleated RBCs # 0.00 Immature Plt Fraction 0.0 Sodium 139 Potassium 4.0 Chloride 103 Carbon Dioxide 29 Anion Gap 11.0 BUN 11 Creatinine 0.70 GFR Calculation 166 BUN/Creatinine Ratio 15.00 Glucose 171 H POC Glucose 179 H Calculated Osmolality 279.5 Calcium 8.4 L Magnesium 2.3 04/16/17 04/16/17 04/16/17 04:35 07:50 12:08 WBC RBC Hgb Hct MCV MCH MCHC RDW Plt Count MPV Neut % (Auto) Lymph % (Auto) [place] % (Auto) Eos % (Auto) Baso % (Auto) Neut # (Auto) Lymph # (Auto) [place] # (Auto) Eos # (Auto) Baso # (Auto) Immature Gran % Nucleated RBC % Immature Gran # Nucleated RBCs # Immature Plt Fraction Sodium 140 Potassium 4.1 Chloride 104 Carbon Dioxide 29 Anion Gap 11.1 BUN 11 Creatinine 0.70 GFR Calculation 166 BUN/Creatinine Ratio 15.00 Glucose 170 H POC Glucose 152 H 159 H Calculated Osmolality 281.4 Calcium 8.6 Magnesium 2.4 - Diagnostic Findings Procedure: Chest x-ray: report reviewed by me, Ultrasound: report reviewed by me - EKG EKG results: interpreted by me (Echo) EKG shows: sinus rhythm Quality Measures - VTE Contraindication to Pharmacological VTE Prophylaxis: High Risk of Bleeding Specialty Discharge - Follow Up or Referrals <Bon Harris - Last Filed: 04/16/17 16:43> Cardiology - PN: Subj Interval history: No chest discomfort today. He is occasionally noted fullness and heaviness in his chest and I am going to intensifies antianginals a little. We are planning surgery next week. Exam (Progress Note) - Constitutional Vitals: Period Temp Pulse Resp BP Sys/Freeman Pulse Ox Last 24 Hr 97 F-98.8 F 71-97 16-20 115-169/56-86 93-98 Result/EKG - Labs CBC & BMP: 04/16/17 04:35 04/16/17 04:35 Labs: Laboratory Results - last 24 hr 04/16/17 04/16/17 04/16/17 04:35 04:35 04:35 WBC 8.2 RBC 5.13 Hgb 15.7 Hct 44.5 MCV 86.7 L MCH 31 MCHC 35.3 RDW 12.7 Plt Count 199 MPV 9.9 Neut % (Auto) 46.0 Lymph % (Auto) 40.9 [place] % (Auto) 8.2 Eos % (Auto) 3.9 Baso % (Auto) 0.5 Neut # (Auto) 3.8 Lymph # (Auto) 3.3 [place] # (Auto) 0.7 Eos # (Auto) 0.3 Baso # (Auto) 0.0 Immature Gran % 0.5 Nucleated RBC % 0.0 Immature Gran # 0.04 Nucleated RBCs # 0.00 Immature Plt Fraction 0.0 Sodium 139 140 Potassium 4.0 4.1 Chloride 103 104 Carbon Dioxide 29 29 Anion Gap 11.0 11.1 BUN 11 11 Creatinine 0.70 0.70 GFR Calculation 166 166 BUN/Creatinine Ratio 15.00 15.00 Glucose 171 H 170 H POC Glucose Calculated Osmolality 279.5 281.4 Calcium 8.4 L 8.6 Magnesium 2.3 2.4 Total Creatine Kinase CK-MB (CK-2) Troponin I 04/16/17 04/16/17 04/16/17 07:50 12:08 14:19 WBC RBC Hgb Hct MCV MCH MCHC RDW Plt Count MPV Neut % (Auto) Lymph % (Auto) [place] % (Auto) Eos % (Auto) Baso % (Auto) Neut # (Auto) Lymph # (Auto) [place] # (Auto) Eos # (Auto) Baso # (Auto) Immature Gran % Nucleated RBC % Immature Gran # Nucleated RBCs # Immature Plt Fraction Sodium Potassium Chloride Carbon Dioxide Anion Gap BUN Creatinine GFR Calculation BUN/Creatinine Ratio Glucose POC Glucose 152 H 159 H Calculated Osmolality Calcium Magnesium Total Creatine Kinase 58 CK-MB (CK-2) 1.4 Troponin I 0.126 H D
[2017-04-16 15:21] LABS: Troponin I Only 0.126 NG/ML (0.00-0.045)
[2017-04-16] MEDS: glyBURIDE 5 MG TABLET PO SCH (18:40)
[2017-04-16] MEDS: OMEGA 3 ACID ETHYL ESTERS 1 GM CAPSULE PO SCH (21:02)
[2017-04-16] MEDS: ROSUVASTATIN 20 MG TABLET PO SCH (21:03)
[2017-04-16] MEDS: ENOXAPARIN 150 MG/ML SYRINGE SUBCUT SCH (23:51)
[2017-04-17 05:51] LABS: Basophils # 0.1 10*3/uL (0.0-0.2); Basophils % 0.5 % (0.0-0.8); Eosinophils # 0.3 10*3/uL (0.0-0.87); Hematocrit 43.4 VOL% (42.0-52.0); Hemoglobin 15.6 GM/DL (14.0-18.0); Immature Granulocytes % 0.9 %; Immature Granulocytes Absolute 0.09 #; Lymphocytes # 3.5 10*3/uL (1.4-4.0); Lymphocytes % 34.8 % (21.2-54.2); Mean Corpuscular HGB Conc 35.9 GM/DL (32-36); Mean Corpuscular Hemoglobin 30 PG (27-34); Mean Corpuscular Volume 84.4 FL (87-102); Mean Platelet Volume 9.8 FL (9.6-12.0); Monocytes # 0.7 10*3/uL (0.11-0.8); Monocytes % 6.5 % (1.7-12.7); Neutrophils # 5.5 10*3/uL (1.4-7.4); Neutrophils % 54.3 % (38.7-73.9); Platelet Count 223 T/CUMM (130-400); Red Blood Count 5.14 MC/CUMM (3.8-5.5); Red Cell Distribution Width 12.6 % (9.3-17.3)
[2017-04-17] MEDS: NITROGLYCERIN 2% OINT 1 INCH/GM PACK TOP SCH ×4 (06:16→23:36)
[2017-04-17 06:20] LABS: Calcium 9.1 MG/DL (8.5-10.1); Magnesium 2.3 MG/DL (1.8-2.4); Osmolality,Calculated 274.5 MOS/KG (273-304)
--- NOTE | 2017-04-17 07:05 | EKG Report ---
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
[2017-04-17] MEDS: CARVEDILOL 6.25 MG TABLET PO SCH ×2 (08:04→21:30)
[2017-04-17] MEDS: glyBURIDE 5 MG TABLET PO SCH ×2 (08:04→17:49)
[2017-04-17] MEDS: LOSARTAN 25 MG TABLET PO SCH (08:04)
[2017-04-17] MEDS: ASPIRIN EC 81 MG TABLET PO SCH (08:04)
[2017-04-17] MEDS: OMEGA 3 ACID ETHYL ESTERS 1 GM CAPSULE PO SCH ×2 (08:04→21:30)
[2017-04-17] MEDS: PANTOPRAZOLE 40 MG TABLET PO SCH (08:04)
--- NOTE | 2017-04-17 08:04 | EKG Report ---
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
[2017-04-17] MEDS ORDERED: GLUCAGON 1 MG VIAL IM PRN (08:41)
[2017-04-17] MEDS ORDERED: DEXTROSE 50% 25 GM/50 ML VIAL IV PRN (08:41)
--- NOTE | 2017-04-17 08:41 | Cardiothoracic Progress Note ---
Cardiothoracic Subjective Interval history: Ready for surgery on Wednesday. Exam (Progress Note) - Constitutional Vitals: Period Temp Pulse Resp BP Sys/Freeman Pulse Ox Last 24 Hr 97.0 F-98 F 68-76 18-20 121-152/60-86 92-98 Result/EKG - Labs CBC & BMP: 04/17/17 05:25 04/17/17 05:25 Labs: Laboratory Results - last 24 hr 04/16/17 04/16/17 04/16/17 12:08 14:19 18:39 WBC RBC Hgb Hct MCV MCH MCHC RDW Plt Count MPV Neut % (Auto) Lymph % (Auto) [place] % (Auto) Eos % (Auto) Baso % (Auto) Neut # (Auto) Lymph # (Auto) [place] # (Auto) Eos # (Auto) Baso # (Auto) Immature Gran % Nucleated RBC % Immature Gran # Nucleated RBCs # Immature Plt Fraction Sodium Potassium Chloride Carbon Dioxide Anion Gap BUN Creatinine GFR Calculation BUN/Creatinine Ratio Glucose POC Glucose 159 H 169 H Calculated Osmolality Calcium Magnesium Total Creatine Kinase 58 CK-MB (CK-2) 1.4 Troponin I 0.126 H D 04/16/17 04/17/17 04/17/17 19:50 05:25 05:25 WBC 10.0 RBC 5.14 Hgb 15.6 Hct 43.4 MCV 84.4 L MCH 30 MCHC 35.9 RDW 12.6 Plt Count 223 MPV 9.8 Neut % (Auto) 54.3 Lymph % (Auto) 34.8 [place] % (Auto) 6.5 Eos % (Auto) 3.0 Baso % (Auto) 0.5 Neut # (Auto) 5.5 Lymph # (Auto) 3.5 [place] # (Auto) 0.7 Eos # (Auto) 0.3 Baso # (Auto) 0.1 Immature Gran % 0.9 Nucleated RBC % 0.0 Immature Gran # 0.09 Nucleated RBCs # 0.00 Immature Plt Fraction 0.0 Sodium 139 Potassium 4.0 Chloride 105 Carbon Dioxide 27 Anion Gap 11.0 BUN 8 Creatinine 0.50 L GFR Calculation 191 BUN/Creatinine Ratio 16.00 Glucose 102 POC Glucose 210 H Calculated Osmolality 274.5 Calcium 9.1 Magnesium 2.3 Total Creatine Kinase CK-MB (CK-2) Troponin I 08/05/17 06:54 WBC RBC Hgb Hct MCV MCH MCHC RDW Plt Count MPV Neut % (Auto) Lymph % (Auto) [place] % (Auto) Eos % (Auto) Baso % (Auto) Neut # (Auto) Lymph # (Auto) [place] # (Auto) Eos # (Auto) Baso # (Auto) Immature Gran % Nucleated RBC % Immature Gran # Nucleated RBCs # Immature Plt Fraction Sodium Potassium Chloride Carbon Dioxide Anion Gap BUN Creatinine GFR Calculation BUN/Creatinine Ratio Glucose POC Glucose 113 H Calculated Osmolality Calcium Magnesium Total Creatine Kinase CK-MB (CK-2) Troponin I Quality Measures - VTE Contraindication to Pharmacological VTE Prophylaxis: High Risk of Bleeding Specialty Discharge - Follow Up or Referrals
[2017-04-17 08:55] LABS: Troponin I Only 0.125 NG/ML (0.00-0.045)
[2017-04-17] MEDS ORDERED: SODIUM CHLORIDE 0.9% 1,000 ML IV SCH (09:00)
[2017-04-17] MEDS ORDERED: CHLORHEXIDINE 0.12% ORAL RINSE 60 ML BOTTLE SWISH/SPIT SCH (09:00)
[2017-04-17] MEDS ORDERED: DEXTROSE 50% 25 GM/50 ML SYRINGE IV PRN (09:00)
--- NOTE | 2017-04-17 11:19 | Cardiology Progress Note ---
Assessment and Plan (1) Elevated troponin Status: Acute Current Visit: Yes (2) CAD (coronary artery disease) Status: Chronic Assessment and plan: We are planning surgical revascularization in the next week. Current Visit: Yes Qualifiers: Coronary Disease-Associated Artery/Lesion type: [place] artery [place] vs. transplanted heart: [place] heart (3) Diabetes Status: Chronic Current Visit: Yes (4) Dyslipidemia Status: Chronic Current Visit: Yes (5) Hypertension Status: Chronic Current Visit: Yes Cardiology - PN: Subj Interval history: 42-year-old man who presents with elevated troponin and chest discomfort with risk factors. He was found to have multivessel coronary disease and is for coronary bypass grafting. Risks benefits and alternatives of the procedure have been reviewed by Dr. Cuello with the patient. He is going to stay until we get him revascularized. He is having rare episodes of chest discomfort but overall is stable. Exam (Progress Note) - Constitutional Vitals: Period Temp Pulse Resp BP Sys/Freeman Pulse Ox Last 24 Hr 97.0 F-98 F 68-76 18-20 121-152/60-86 92-98 Exam: 42-year-old man who presented with elevated troponins and was found to have multivessel coronary disease. He is for surgical revascularization. We are holding him in the hospital until this can be set up. Our plan is to continue current medications. Result/EKG - Labs CBC & BMP: 04/17/17 05:25 04/17/17 05:25 Labs: Laboratory Results - last 24 hr 04/16/17 04/16/17 04/16/17 12:08 14:19 18:39 WBC RBC Hgb Hct MCV MCH MCHC RDW Plt Count MPV Neut % (Auto) Lymph % (Auto) [place] % (Auto) Eos % (Auto) Baso % (Auto) Neut # (Auto) Lymph # (Auto) [place] # (Auto) Eos # (Auto) Baso # (Auto) Immature Gran % Nucleated RBC % Immature Gran # Nucleated RBCs # Immature Plt Fraction Sodium Potassium Chloride Carbon Dioxide Anion Gap BUN Creatinine GFR Calculation BUN/Creatinine Ratio Glucose POC Glucose 159 H 169 H Calculated Osmolality Calcium Magnesium Total Creatine Kinase 58 CK-MB (CK-2) 1.4 Troponin I 0.126 H D 04/16/17 04/17/17 04/17/17 19:50 05:25 05:25 WBC 10.0 RBC 5.14 Hgb 15.6 Hct 43.4 MCV 84.4 L MCH 30 MCHC 35.9 RDW 12.6 Plt Count 223 MPV 9.8 Neut % (Auto) 54.3 Lymph % (Auto) 34.8 [place] % (Auto) 6.5 Eos % (Auto) 3.0 Baso % (Auto) 0.5 Neut # (Auto) 5.5 Lymph # (Auto) 3.5 [place] # (Auto) 0.7 Eos # (Auto) 0.3 Baso # (Auto) 0.1 Immature Gran % 0.9 Nucleated RBC % 0.0 Immature Gran # 0.09 Nucleated RBCs # 0.00 Immature Plt Fraction 0.0 Sodium 139 Potassium 4.0 Chloride 105 Carbon Dioxide 27 Anion Gap 11.0 BUN 8 Creatinine 0.50 L GFR Calculation 191 BUN/Creatinine Ratio 16.00 Glucose 102 POC Glucose 210 H Calculated Osmolality 274.5 Calcium 9.1 Magnesium 2.3 Total Creatine Kinase CK-MB (CK-2) Troponin I 04/17/17 04/17/17 06:54 07:57 WBC RBC Hgb Hct MCV MCH MCHC RDW Plt Count MPV Neut % (Auto) Lymph % (Auto) [place] % (Auto) Eos % (Auto) Baso % (Auto) Neut # (Auto) Lymph # (Auto) [place] # (Auto) Eos # (Auto) Baso # (Auto) Immature Gran % Nucleated RBC % Immature Gran # Nucleated RBCs # Immature Plt Fraction Sodium Potassium Chloride Carbon Dioxide Anion Gap BUN Creatinine GFR Calculation BUN/Creatinine Ratio Glucose POC Glucose 113 H Calculated Osmolality Calcium Magnesium Total Creatine Kinase 50 CK-MB (CK-2) 1.3 Troponin I 0.125 H Quality Measures - VTE Contraindication to Pharmacological VTE Prophylaxis: High Risk of Bleeding Specialty Discharge - Follow Up or Referrals
[2017-04-17] MEDS: ENOXAPARIN 150 MG/ML SYRINGE SUBCUT SCH ×2 (11:58→23:36)
[2017-04-17 15:35] LABS: Troponin I Only 0.108 NG/ML (0.00-0.045)
[2017-04-17] MEDS: ROSUVASTATIN 20 MG TABLET PO SCH (21:30)
[2017-04-18 05:19] LABS: Basophils # 0.1 10*3/uL (0.0-0.2); Basophils % 0.5 % (0.0-0.8); Eosinophils # 0.4 10*3/uL (0.0-0.87); Eosinophils % 3.3 % (0.00-10.9); Hematocrit 46.2 VOL% (42.0-52.0); Hemoglobin 15.9 GM/DL (14.0-18.0); Immature Granulocytes % 1.9 %; Immature Granulocytes Absolute 0.21 #; Lymphocytes # 4.2 10*3/uL (1.4-4.0); Lymphocytes % 38.9 % (21.2-54.2); Mean Corpuscular HGB Conc 34.4 GM/DL (32-36); Mean Corpuscular Hemoglobin 30 PG (27-34); Mean Corpuscular Volume 86.2 FL (87-102); Mean Platelet Volume 9.7 FL (9.6-12.0); Monocytes # 0.6 10*3/uL (0.11-0.8); Monocytes % 5.9 % (1.7-12.7); Neutrophils # 5.3 10*3/uL (1.4-7.4); Neutrophils % 49.5 % (38.7-73.9); Platelet Count 224 T/CUMM (130-400); Red Blood Count 5.36 MC/CUMM (3.8-5.5); Red Cell Distribution Width 12.6 % (9.3-17.3); White Blood Count 10.8 T/CUMM (4-12)
[2017-04-18 05:47] LABS: Calcium 8.9 MG/DL (8.5-10.1); Magnesium 2.3 MG/DL (1.8-2.4); Osmolality,Calculated 279.3 MOS/KG (273-304); Potassium 4.2 MMOL/L (3.5-5.1)
[2017-04-18] MEDS: NITROGLYCERIN 2% OINT 1 INCH/GM PACK TOP SCH ×4 (06:00→23:39)
[2017-04-18] MEDS: LOSARTAN 25 MG TABLET PO SCH (08:05)
[2017-04-18] MEDS: OMEGA 3 ACID ETHYL ESTERS 1 GM CAPSULE PO SCH ×2 (08:06→21:08)
[2017-04-18] MEDS: PANTOPRAZOLE 40 MG TABLET PO SCH (08:06)
[2017-04-18] MEDS: ASPIRIN EC 81 MG TABLET PO SCH (08:06)
[2017-04-18] MEDS: glyBURIDE 5 MG TABLET PO SCH ×2 (08:06→17:00)
[2017-04-18] MEDS: CARVEDILOL 6.25 MG TABLET PO SCH ×2 (08:06→21:08)
--- NOTE | 2017-04-18 08:07 | Cardiothoracic Progress Note ---
Cardiothoracic Subjective Interval history: Patient is ready for surgery on Wednesday. Exam (Progress Note) - Constitutional Vitals: Period Temp Pulse Resp BP Sys/Freeman Pulse Ox Last 24 Hr 97.0 F-98.2 F 70-79 18-20 119-148/64-76 92-94 Result/EKG - Labs CBC & BMP: 04/18/17 04:36 04/18/17 04:36 Labs: Laboratory Results - last 24 hr 04/17/17 04/17/17 04/17/17 07:57 12:13 15:00 WBC RBC Hgb Hct MCV MCH MCHC RDW Plt Count MPV Neut % (Auto) Lymph % (Auto) [place] % (Auto) Eos % (Auto) Baso % (Auto) Neut # (Auto) Lymph # (Auto) [place] # (Auto) Eos # (Auto) Baso # (Auto) Immature Gran % Nucleated RBC % Immature Gran # Nucleated RBCs # Immature Plt Fraction Sodium Potassium Chloride Carbon Dioxide Anion Gap BUN Creatinine GFR Calculation BUN/Creatinine Ratio Glucose POC Glucose 83 Calculated Osmolality Calcium Magnesium Total Creatine Kinase 50 61 D CK-MB (CK-2) 1.3 1.3 Troponin I 0.125 H 0.108 H 04/17/17 04/17/17 04/18/17 16:17 20:27 04:36 WBC 10.8 RBC 5.36 Hgb 15.9 Hct 46.2 MCV 86.2 L MCH 30 MCHC 34.4 RDW 12.6 Plt Count 224 MPV 9.7 Neut % (Auto) 49.5 Lymph % (Auto) 38.9 [place] % (Auto) 5.9 Eos % (Auto) 3.3 Baso % (Auto) 0.5 Neut # (Auto) 5.3 Lymph # (Auto) 4.2 H [place] # (Auto) 0.6 Eos # (Auto) 0.4 Baso # (Auto) 0.1 Immature Gran % 1.9 Nucleated RBC % 0.0 Immature Gran # 0.21 Nucleated RBCs # 0.00 Immature Plt Fraction 0.0 Sodium Potassium Chloride Carbon Dioxide Anion Gap BUN Creatinine GFR Calculation BUN/Creatinine Ratio Glucose POC Glucose 112 H 219 H Calculated Osmolality Calcium Magnesium Total Creatine Kinase CK-MB (CK-2) Troponin I 04/18/17 04/18/17 04:36 07:18 WBC RBC Hgb Hct MCV MCH MCHC RDW Plt Count MPV Neut % (Auto) Lymph % (Auto) [place] % (Auto) Eos % (Auto) Baso % (Auto) Neut # (Auto) Lymph # (Auto) [place] # (Auto) Eos # (Auto) Baso # (Auto) Immature Gran % Nucleated RBC % Immature Gran # Nucleated RBCs # Immature Plt Fraction Sodium 141 Potassium 4.2 Chloride 104 Carbon Dioxide 31 Anion Gap 10.2 BUN 8 Creatinine 0.70 GFR Calculation 166 BUN/Creatinine Ratio 11.00 Glucose 120 H POC Glucose 122 H Calculated Osmolality 279.3 Calcium 8.9 Magnesium 2.3 Total Creatine Kinase CK-MB (CK-2) Troponin I Quality Measures - VTE Contraindication to Pharmacological VTE Prophylaxis: High Risk of Bleeding Specialty Discharge - Follow Up or Referrals
--- NOTE | 2017-04-18 08:16 | EKG Report ---
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
--- NOTE | 2017-04-18 10:21 | Cardiology Progress Note ---
Assessment and Plan (1) Elevated troponin Status: Acute Current Visit: Yes (2) CAD (coronary artery disease) Status: Chronic Assessment and plan: We are planning surgical revascularization in the next week. 04/18: We are going to have him undergo surgical revascularization next several days. Current Visit: Yes Qualifiers: Coronary Disease-Associated Artery/Lesion type: [place] artery [place] vs. transplanted heart: [place] heart (3) Diabetes Status: Chronic Current Visit: Yes (4) Dyslipidemia Status: Chronic Current Visit: Yes (5) Hypertension Status: Chronic Current Visit: Yes Cardiology - PN: Subj Interval history: Patient is doing well without significant limitation. He has episodes where he is aware of his chest. It does not sound typical for angina. I am going to review an EKG and then follow 1 daily. He is for surgery on Wednesday. Exam (Progress Note) - Constitutional Vitals: Period Temp Pulse Resp BP Sys/Freeman Pulse Ox Last 24 Hr 97 F-98.2 F 70-79 18-20 119-148/64-76 92-94 Exam: 42-year-old man who presented with elevated troponins and was found to have multivessel coronary disease. He is for surgical revascularization. We are holding him in the hospital until this can be set up. Our plan is to continue current medications. Result/EKG - Labs CBC & BMP: 04/18/17 04:36 04/18/17 04:36 Labs: Laboratory Results - last 24 hr 04/17/17 04/17/17 04/17/17 12:13 15:00 16:17 WBC RBC Hgb Hct MCV MCH MCHC RDW Plt Count MPV Neut % (Auto) Lymph % (Auto) [place] % (Auto) Eos % (Auto) Baso % (Auto) Neut # (Auto) Lymph # (Auto) [place] # (Auto) Eos # (Auto) Baso # (Auto) Immature Gran % Nucleated RBC % Immature Gran # Nucleated RBCs # Immature Plt Fraction Sodium Potassium Chloride Carbon Dioxide Anion Gap BUN Creatinine GFR Calculation BUN/Creatinine Ratio Glucose POC Glucose 83 112 H Calculated Osmolality Calcium Magnesium Total Creatine Kinase 61 D CK-MB (CK-2) 1.3 Troponin I 0.108 H 04/17/17 04/18/17 04/18/17 20:27 04:36 04:36 WBC 10.8 RBC 5.36 Hgb 15.9 Hct 46.2 MCV 86.2 L MCH 30 MCHC 34.4 RDW 12.6 Plt Count 224 MPV 9.7 Neut % (Auto) 49.5 Lymph % (Auto) 38.9 [place] % (Auto) 5.9 Eos % (Auto) 3.3 Baso % (Auto) 0.5 Neut # (Auto) 5.3 Lymph # (Auto) 4.2 H [place] # (Auto) 0.6 Eos # (Auto) 0.4 Baso # (Auto) 0.1 Immature Gran % 1.9 Nucleated RBC % 0.0 Immature Gran # 0.21 Nucleated RBCs # 0.00 Immature Plt Fraction 0.0 Sodium 141 Potassium 4.2 Chloride 104 Carbon Dioxide 31 Anion Gap 10.2 BUN 8 Creatinine 0.70 GFR Calculation 166 BUN/Creatinine Ratio 11.00 Glucose 120 H POC Glucose 219 H Calculated Osmolality 279.3 Calcium 8.9 Magnesium 2.3 Total Creatine Kinase CK-MB (CK-2) Troponin I 04/18/17 07:18 WBC RBC Hgb Hct MCV MCH MCHC RDW Plt Count MPV Neut % (Auto) Lymph % (Auto) [place] % (Auto) Eos % (Auto) Baso % (Auto) Neut # (Auto) Lymph # (Auto) [place] # (Auto) Eos # (Auto) Baso # (Auto) Immature Gran % Nucleated RBC % Immature Gran # Nucleated RBCs # Immature Plt Fraction Sodium Potassium Chloride Carbon Dioxide Anion Gap BUN Creatinine GFR Calculation BUN/Creatinine Ratio Glucose POC Glucose 122 H Calculated Osmolality Calcium Magnesium Total Creatine Kinase CK-MB (CK-2) Troponin I Quality Measures - VTE Contraindication to Pharmacological VTE Prophylaxis: High Risk of Bleeding Specialty Discharge - Follow Up or Referrals
--- NOTE | 2017-04-18 10:29 | EKG Report ---
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
[2017-04-18] MEDS: ENOXAPARIN 150 MG/ML SYRINGE SUBCUT SCH ×2 (11:24→23:39)
[2017-04-18] MEDS: ROSUVASTATIN 20 MG TABLET PO SCH (21:08)
[2017-04-19 03:57] LABS: ABG Base Excess 1.7 MMOL/L (-2.5-2.5); ABG HCO3 25.8 MMOL/L (20-26); ABG Oxygen Saturation 95.8 % (95-100); ABG PCO2 43.9 MM HG (35-48); ABG PH 7.397 (7.35-7.45); ABG PO2 79.9 MM HG (80-95); ABG TCO2 22.7 MMOL/L (23-27); Allen Test Positive; Pt O2 Delivery Device Room Air
[2017-04-19 05:35] LABS: Basophils # 0.1 10*3/uL (0.0-0.2); Basophils % 0.7 % (0.0-0.8); Eosinophils # 0.3 10*3/uL (0.0-0.87); Eosinophils % 2.7 % (0.00-10.9); Hematocrit 46.6 VOL% (42.0-52.0); Hemoglobin 16.3 GM/DL (14.0-18.0); Immature Granulocytes % 2.4 %; Immature Granulocytes Absolute 0.29 #; Lymphocytes # 4.2 10*3/uL (1.4-4.0); Lymphocytes % 34.1 % (21.2-54.2); Mean Corpuscular Hemoglobin 30 PG (27-34); Mean Corpuscular Volume 85.5 FL (87-102); Mean Platelet Volume 9.7 FL (9.6-12.0); Monocytes # 0.6 10*3/uL (0.11-0.8); Neutrophils # 6.8 10*3/uL (1.4-7.4); Neutrophils % 55.1 % (38.7-73.9); Platelet Count 245 T/CUMM (130-400); Red Blood Count 5.45 MC/CUMM (3.8-5.5); Red Cell Distribution Width 12.6 % (9.3-17.3); White Blood Count 12.3 T/CUMM (4-12)
[2017-04-19 06:01] LABS: Calcium 8.8 MG/DL (8.5-10.1); Magnesium 2.3 MG/DL (1.8-2.4); Osmolality,Calculated 275.7 MOS/KG (273-304)
[2017-04-19] MEDS: NITROGLYCERIN 2% OINT 1 INCH/GM PACK TOP SCH ×3 (06:01→17:02)
--- NOTE | 2017-04-19 06:15 | Cardiothoracic Progress Note ---
Cardiothoracic Subjective Interval history: Patient is ready for surgery on Wednesday. Exam (Progress Note) - Constitutional Vitals: Period Temp Pulse Resp BP Sys/Freeman Pulse Ox Last 24 Hr 97 F-98.0 F 60-86 18-20 118-140/56-76 92-97 Result/EKG - Labs CBC & BMP: 04/19/17 04:54 04/19/17 04:54 Labs: Laboratory Results - last 24 hr 04/18/17 04/18/17 04/18/17 07:18 12:00 16:43 WBC RBC Hgb Hct MCV MCH MCHC RDW Plt Count MPV Neut % (Auto) Lymph % (Auto) [place] % (Auto) Eos % (Auto) Baso % (Auto) Neut # (Auto) Lymph # (Auto) [place] # (Auto) Eos # (Auto) Baso # (Auto) Immature Gran % Nucleated RBC % Immature Gran # Nucleated RBCs # Immature Plt Fraction ABG pH ABG pCO2 ABG pO2 ABG HCO3 ABG Total CO2 ABG O2 Saturation ABG Base Excess FiO2 Sodium Potassium Chloride Carbon Dioxide Anion Gap BUN Creatinine GFR Calculation BUN/Creatinine Ratio Glucose POC Glucose 122 H 74 126 H Calculated Osmolality Calcium Magnesium 04/18/17 04/19/17 04/19/17 19:59 03:38 04:54 WBC 12.3 H RBC 5.45 Hgb 16.3 Hct 46.6 MCV 85.5 L MCH 30 MCHC 35.0 RDW 12.6 Plt Count 245 MPV 9.7 Neut % (Auto) 55.1 Lymph % (Auto) 34.1 [place] % (Auto) 5.0 Eos % (Auto) 2.7 Baso % (Auto) 0.7 Neut # (Auto) 6.8 Lymph # (Auto) 4.2 H [place] # (Auto) 0.6 Eos # (Auto) 0.3 Baso # (Auto) 0.1 Immature Gran % 2.4 Nucleated RBC % 0.0 Immature Gran # 0.29 Nucleated RBCs # 0.00 Immature Plt Fraction 0.0 ABG pH 7.397 ABG pCO2 43.9 ABG pO2 79.9 L ABG HCO3 25.8 ABG Total CO2 22.7 L ABG O2 Saturation 95.8 ABG Base Excess 1.7 FiO2 21.00 Sodium Potassium Chloride Carbon Dioxide Anion Gap BUN Creatinine GFR Calculation BUN/Creatinine Ratio Glucose POC Glucose 121 H Calculated Osmolality Calcium Magnesium 04/19/17 04:54 WBC RBC Hgb Hct MCV MCH MCHC RDW Plt Count MPV Neut % (Auto) Lymph % (Auto) [place] % (Auto) Eos % (Auto) Baso % (Auto) Neut # (Auto) Lymph # (Auto) [place] # (Auto) Eos # (Auto) Baso # (Auto) Immature Gran % Nucleated RBC % Immature Gran # Nucleated RBCs # Immature Plt Fraction ABG pH ABG pCO2 ABG pO2 ABG HCO3 ABG Total CO2 ABG O2 Saturation ABG Base Excess FiO2 Sodium 138 Potassium 4.0 Chloride 101 Carbon Dioxide 30 Anion Gap 11.0 BUN 9 Creatinine 0.70 GFR Calculation 166 BUN/Creatinine Ratio 12.00 Glucose 127 H POC Glucose Calculated Osmolality 275.7 Calcium 8.8 Magnesium 2.3 Quality Measures - VTE Contraindication to Pharmacological VTE Prophylaxis: High Risk of Bleeding Specialty Discharge - Follow Up or Referrals
--- NOTE | 2017-04-19 06:56 | EKG Report ---
Stationary ECG Study [facility] Test Date: 04/19/2017 6:56:34 AM Pat Name: YOUSUF GUILLEN Department: Room: 284 Gender: M Sybase Developer: : 1975 Requested by: Bon Harris Order Number: [id number] Reading MD: DINORAH NI Intervals [place] Rate: 60 P: 73 [place]: 182 QRS: 88 QRSD: 98 T: 89 QT: 398 QTc: 399 Interpretive Statements SINUS RHYTHM Electronically Signed On 04-19-17 07:45:44 CDT by DINORAH NI [email or web address]
--- NOTE | 2017-04-19 08:13 | XRay Report ---
2 view chest. Indication: Coronary artery disease. Comparison: April 15, 2017. The heart is normal in size. The mediastinal contours are unremarkable. The pulmonary vasculature is normal. There is no consolidation, pneumothorax, or pleural effusion. Degenerative changes are noted within the spinal column and shoulders. Impression: No acute abnormality. PROCEDURE INTERPRETED AT [facility] DEPARTMENT OF RADIOLOGY Final Report Signed by: Dr. Adilene Barroso
[2017-04-19] MEDS: OMEGA 3 ACID ETHYL ESTERS 1 GM CAPSULE PO SCH ×2 (08:56→22:14)
[2017-04-19] MEDS: ASPIRIN EC 81 MG TABLET PO SCH (08:57)
[2017-04-19] MEDS: PANTOPRAZOLE 40 MG TABLET PO SCH (08:57)
[2017-04-19] MEDS: CARVEDILOL 6.25 MG TABLET PO SCH ×2 (08:57→22:13)
[2017-04-19] MEDS: LOSARTAN 25 MG TABLET PO SCH (08:57)
[2017-04-19] MEDS: glyBURIDE 5 MG TABLET PO SCH ×2 (08:58→17:02)
[2017-04-19] MEDS: ENOXAPARIN 150 MG/ML SYRINGE SUBCUT SCH ×2 (11:30→22:14)
--- NOTE | 2017-04-19 14:22 | Cardiology Progress Note ---
John Real Lesley, MAGDA, am scribing for, and in the presence of, Chapis Neumann NP 14:22. Assessment and Plan - Time spent with patient Time spent with patient: Greater than 30 minutes (1) Chest pain Status: Resolved Assessment and plan: SEE PLAN OF CARE LISTED BELOW Current Visit: Yes (2) Elevated troponin Status: Acute Assessment and plan: SEE PLAN OF CARE LISTED BELOW Current Visit: Yes (3) NSTEMI (non-ST elevated myocardial infarction) Status: Acute Assessment and plan: SEE PLAN OF CARE LISTED BELOW Current Visit: Yes (4) Hypertension Status: Chronic Assessment and plan: SEE PLAN OF CARE LISTED BELOW Current Visit: Yes (5) Dyslipidemia Status: Chronic Assessment and plan: SEE PLAN OF CARE LISTED BELOW Current Visit: Yes (6) Obesity Status: Chronic Assessment and plan: SEE PLAN OF CARE LISTED BELOW Current Visit: Yes Qualifiers: Obesity classification: adult class 3 (BMI >= 40) Body mass index: BMI 40.0 -44.9 (7) Sleep apnea Status: Chronic Assessment and plan: SEE PLAN OF CARE LISTED BELOW Current Visit: Yes (8) Diabetes Status: Chronic Assessment and plan: SEE PLAN OF CARE LISTED BELOW Current Visit: Yes Cardiology - PN: Subj Interval history: Assessment and Plan - Time spent with patient Time spent with patient: Greater than 30 minutes (1) Hypertension Status: Chronic Assessment and plan: SEE PLAN OF CARE LISTED BELOW Current Visit: Yes (2) Dyslipidemia Status: Chronic Assessment and plan: SEE PLAN OF CARE LISTED BELOW Current Visit: Yes (3) Obesity Status: Chronic Assessment and plan: SEE PLAN OF CARE LISTED BELOW Current Visit: Yes Qualifiers: Obesity classification: adult class 3 (BMI >= 40) Body mass index: BMI 40.0 -44.9 (4) Sleep apnea Status: Chronic Assessment and plan: SEE PLAN OF CARE LISTED BELOW Current Visit: Yes (5) Chest pain Status: Resolved Assessment and plan: SEE PLAN OF CARE LISTED BELOW Current Visit: Yes (6) Elevated troponin Status: Acute Assessment and plan: SEE PLAN OF CARE LISTED BELOW Current Visit: Yes (7) Diabetes Status: Chronic Assessment and plan: SEE PLAN OF CARE LISTED BELOW Current Visit: Yes (8) CAD (coronary artery disease) Status: Chronic Assessment and plan: SEE PLAN OF CARE LISTED BELOW Current Visit: Yes Qualifiers: Coronary Disease-Associated Artery/Lesion type: kaw artery [place] vs. 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 HARRIS SUMMARY: 42WM with risk factors significant for: (Untreated) hypertension, ( newly discovered) dyslipidemia, (newly diagnosed) diabetes, family history of premature coronary artery disease (brother [place] at 35), obesity, sedentary lifestyle and non-compliance. History of frequent kidney stones, untreated sleep apnea. Admitted April 14, 2017 with NSTEMI (unstable angina). Underwent cardiac catheterization which revealed [address] Cuello was consulted for CABG. He is currently scheduled to undergo surgery Wednesday of this week. (CV Surgery schedule is full prior to this date.) Echo: EF 40-45%, grade 1 diastolic dysfunction, mild concentric LVH. No significant valvular abnormality. APRIL 16, 2017: Patient is doing well this morning. Has reported complaints of chest heaviness but this was improved with nitroglycerin paste last evening. I have ordered CIEs and EKG to be done now. No arrhythmias. Sleep medicine evaluated patient last night and he did undergo HSAT last evening. He does have a prior history of obstructive sleep apnea originally diagnosed in 2005. In the past, he has been noncompliant with his device for several years but is willing to try a new device. Greater than 45 minutes was spent today discussing multiple comorbidities and new diagnoses. In the past, patient has not followed up routinely with physicians. Hemoglobin A1c 9.4. This is a new diagnosis of diabetes. Initiating oral medications today. Continue sliding scale as needed. LDL 91. We will continue with lipid-lowering agent as he has quit taking his in the past. Triglycerides 319. Will start [place]-3 twice daily. Consult cardiac rehab. Will further discuss with Dr. Harris and await additional recommendations. APRIL 19, 2017: He reports doing well with mild complaints of chest heaviness on and off over the weekend. No arrhythmias. EKG shows normal sinus rhythm. Chest x-ray reviewed with no acute abnormality. Labs reviewed today, white blood cell count noted at 12, will repeat this in the morning as the patient denies any symptoms of infection. His blood glucose levels appear to be responding well to sliding scale of insulin. Will further discuss with Dr. Delaney and await additional recommendations. ASSESSMENT/PLAN: 1. NSTEMI - currently chest pain-free. Continue Lovenox therapeutic dosing twice daily. Continue nitrates. 2. 3VCAD - CABG this week if angina remains stable. 3. UNTREATED HYPERTENSION - tolerating Carvedilol, ARB. 4. DYSLIPIDEMIA - LDL 91. Crestor 10 mg orally each evening. Continue omega- 3 2 g orally twice daily for triglycerides at 319. 5. DIABETES -continue glipizide 5mg orally BID, continue sliding scale. Diabetic education. New diagnosis 6. UNTREATED SLEEP APNEA - appreciate sleep medicines management 7. OBESITY - dietary counseling prior to discharge. Cardiac rehab consult. 8. NON-COMPLIANCE - historically, but he is willing to follow recommended instructions. 9. ICM - EF 40% - 45%. Continue current plan of care. Exam (Progress Note) - Constitutional Vitals: Period Temp Pulse Resp BP Sys/Freeman Pulse Ox Last 24 Hr 97 F-98.0 F 60-86 18-20 118-140/56-76 92-97 Exam: General: Appears well with no apparent distress. Pleasant and cooperative. Appears comfortable. HEENT: PERRL, normocephalic, atraumatic. Mucous membranes moist. No jaundice noted. Conjunctiva moist and clear. Neck: No JVD/HJR, no thyromegaly or lymphadenopathy noted. No carotid bruit appreciated. Cardiac: Regular rate and rhythm. No murmur rub or gallop. PMI is nondisplaced. Lungs: Clear to auscultation without accessory muscle use to assist the respiratory pattern. Not requiring oxygen. Abdomen: Soft, bowel sounds normoactive. Nontender and nondistended. No abdominal bruit or thrill noted. No masses noted. Musculoskeletal: No fluid collection. Decreased range of motion is noted. Extremities: No clubbing, cyanosis noted. No edema noted. Upper extremity pulses 2+. Lower extremity pulses 2+. Capillary refill less than 3 seconds. Skin: No unusual lesions or rashes. No skin breakdown appreciated. Neuro: Awake, alert and oriented 3. Moves all extremities well without hemiparesis or paralysis. No essential tremor is appreciated. Result/EKG - Labs CBC & BMP: 04/19/17 04:54 04/19/17 04:54 Lab Results: I have reviewed the past 24 hour labs Labs: Laboratory Results - last 24 hr 04/18/17 04/18/17 04/18/17 12:00 16:43 19:59 WBC RBC Hgb Hct MCV MCH MCHC RDW Plt Count MPV Neut % (Auto) Lymph % (Auto) [place] % (Auto) Eos % (Auto) Baso % (Auto) Neut # (Auto) Lymph # (Auto) [place] # (Auto) Eos # (Auto) Baso # (Auto) Immature Gran % Nucleated RBC % Immature Gran # Nucleated RBCs # Immature Plt Fraction ABG pH ABG pCO2 ABG pO2 ABG HCO3 ABG Total CO2 ABG O2 Saturation ABG Base Excess FiO2 Sodium Potassium Chloride Carbon Dioxide Anion Gap BUN Creatinine GFR Calculation BUN/Creatinine Ratio Glucose POC Glucose 74 126 H 121 H Calculated Osmolality Calcium Magnesium 04/19/17 04/19/17 04/19/17 03:38 04:54 04:54 WBC 12.3 H RBC 5.45 Hgb 16.3 Hct 46.6 MCV 85.5 L MCH 30 MCHC 35.0 RDW 12.6 Plt Count 245 MPV 9.7 Neut % (Auto) 55.1 Lymph % (Auto) 34.1 [place] % (Auto) 5.0 Eos % (Auto) 2.7 Baso % (Auto) 0.7 Neut # (Auto) 6.8 Lymph # (Auto) 4.2 H [place] # (Auto) 0.6 Eos # (Auto) 0.3 Baso # (Auto) 0.1 Immature Gran % 2.4 Nucleated RBC % 0.0 Immature Gran # 0.29 Nucleated RBCs # 0.00 Immature Plt Fraction 0.0 ABG pH 7.397 ABG pCO2 43.9 ABG pO2 79.9 L ABG HCO3 25.8 ABG Total CO2 22.7 L ABG O2 Saturation 95.8 ABG Base Excess 1.7 FiO2 21.00 Sodium 138 Potassium 4.0 Chloride 101 Carbon Dioxide 30 Anion Gap 11.0 BUN 9 Creatinine 0.70 GFR Calculation 166 BUN/Creatinine Ratio 12.00 Glucose 127 H POC Glucose Calculated Osmolality 275.7 Calcium 8.8 Magnesium 2.3 04/19/17 07:28 WBC RBC Hgb Hct MCV MCH MCHC RDW Plt Count MPV Neut % (Auto) Lymph % (Auto) [place] % (Auto) Eos % (Auto) Baso % (Auto) Neut # (Auto) Lymph # (Auto) [place] # (Auto) Eos # (Auto) Baso # (Auto) Immature Gran % Nucleated RBC % Immature Gran # Nucleated RBCs # Immature Plt Fraction ABG pH ABG pCO2 ABG pO2 ABG HCO3 ABG Total CO2 ABG O2 Saturation ABG Base Excess FiO2 Sodium Potassium Chloride Carbon Dioxide Anion Gap BUN Creatinine GFR Calculation BUN/Creatinine Ratio Glucose POC Glucose 111 H Calculated Osmolality Calcium Magnesium - Diagnostic Findings Procedure: Chest x-ray: report reviewed by me - EKG EKG results: interpreted by me, sinus rhythm Quality Measures - VTE Contraindication to Pharmacological VTE Prophylaxis: High Risk of Bleeding Specialty Discharge - Follow Up or Referrals Thien Real Bonnie E, NP, personally performed the services described in this documentation, ascribed by Dennise Lopez NP in my presence, and it is both accurate and complete 422 .
[2017-04-19] MEDS: ROSUVASTATIN 20 MG TABLET PO SCH (22:13)
[2017-04-20] MEDS: NITROGLYCERIN 2% OINT 1 INCH/GM PACK TOP SCH ×4 (00:23→21:33)
[2017-04-20 04:57] LABS: Basophils # 0.1 10*3/uL (0.0-0.2); Basophils % 0.5 % (0.0-0.8); Eosinophils # 0.3 10*3/uL (0.0-0.87); Eosinophils % 2.5 % (0.00-10.9); Hemoglobin 15.4 GM/DL (14.0-18.0); Immature Granulocytes Absolute 0.37 #; Lymphocytes # 4.1 10*3/uL (1.4-4.0); Lymphocytes % 33.7 % (21.2-54.2); Mean Corpuscular HGB Conc 35.8 GM/DL (32-36); Mean Corpuscular Hemoglobin 30 PG (27-34); Mean Corpuscular Volume 84.1 FL (87-102); Mean Platelet Volume 9.8 FL (9.6-12.0); Monocytes # 0.7 10*3/uL (0.11-0.8); Monocytes % 5.7 % (1.7-12.7); Neutrophils # 6.7 10*3/uL (1.4-7.4); Neutrophils % 54.6 % (38.7-73.9); Platelet Count 226 T/CUMM (130-400); Red Blood Count 5.11 MC/CUMM (3.8-5.5); Red Cell Distribution Width 12.5 % (9.3-17.3); White Blood Count 12.2 T/CUMM (4-12)
[2017-04-20 05:15] LABS: Calcium 8.9 MG/DL (8.5-10.1); Magnesium 2.2 MG/DL (1.8-2.4); Osmolality,Calculated 279.7 MOS/KG (273-304); Potassium 3.8 MMOL/L (3.5-5.1)
--- NOTE | 2017-04-20 07:44 | EKG Report ---
Stationary ECG Study [facility] Test Date: 04/20/2017 7:45:18 AM Pat Name: YOUSUF GUILLEN Department: Room: 284 Gender: M Qualitative Field Coordinator: KEITH : 1975 Requested by: Bon Harris Order Number: [id number] Reading MD: MILLIE WAKEFIELD Intervals [place] Rate: 63 P: 52 [place]: 186 QRS: 66 QRSD: 95 T: 69 QT: 397 QTc: 404 Interpretive Statements SINUS RHYTHM Electronically Signed On 04-20-17 07:54:02 CDT by MILLIE WAKEFIELD [id number]
[2017-04-20] MEDS: ASPIRIN EC 81 MG TABLET PO SCH (09:16)
[2017-04-20] MEDS: LOSARTAN 25 MG TABLET PO SCH (09:16)
[2017-04-20] MEDS: OMEGA 3 ACID ETHYL ESTERS 1 GM CAPSULE PO SCH ×2 (09:16→21:34)
[2017-04-20] MEDS: glyBURIDE 5 MG TABLET PO SCH ×2 (09:17→16:15)
[2017-04-20] MEDS: PANTOPRAZOLE 40 MG TABLET PO SCH (09:17)
[2017-04-20] MEDS: CARVEDILOL 6.25 MG TABLET PO SCH ×2 (09:17→21:34)
[2017-04-20] MEDS: CHLORHEXIDINE 4% SOLN 118 ML BOTTLE TOP SCH ×3 (09:18→21:34)
[2017-04-20] MEDS: CHLORHEXIDINE 0.12% ORAL RINSE 60 ML BOTTLE SWISH/SPIT SCH ×2 (09:18→21:34)
--- NOTE | 2017-04-20 16:38 | Cardiology Progress Note ---
John Real Lesley, MAGDA, am scribing for, and in the presence of, Chapis Neumann NP 16:38. Assessment and Plan - Time spent with patient Time spent with patient: Greater than 30 minutes (1) Chest pain Status: Resolved Assessment and plan: SEE PLAN OF CARE LISTED BELOW Current Visit: Yes (2) Elevated troponin Status: Acute Assessment and plan: SEE PLAN OF CARE LISTED BELOW Current Visit: Yes (3) NSTEMI (non-ST elevated myocardial infarction) Status: Acute Assessment and plan: SEE PLAN OF CARE LISTED BELOW Current Visit: Yes (4) Hypertension Status: Chronic Assessment and plan: SEE PLAN OF CARE LISTED BELOW Current Visit: Yes (5) Dyslipidemia Status: Chronic Assessment and plan: SEE PLAN OF CARE LISTED BELOW Current Visit: Yes (6) Obesity Status: Chronic Assessment and plan: SEE PLAN OF CARE LISTED BELOW Current Visit: Yes Qualifiers: Obesity classification: adult class 3 (BMI >= 40) Body mass index: BMI 40.0 -44.9 (7) Sleep apnea Status: Chronic Assessment and plan: SEE PLAN OF CARE LISTED BELOW Current Visit: Yes (8) Diabetes Status: Chronic Assessment and plan: SEE PLAN OF CARE LISTED BELOW Current Visit: Yes Cardiology - PN: Subj Interval history: Assessment and Plan - Time spent with patient Time spent with patient: Greater than 30 minutes (1) Hypertension Status: Chronic Assessment and plan: SEE PLAN OF CARE LISTED BELOW Current Visit: Yes (2) Dyslipidemia Status: Chronic Assessment and plan: SEE PLAN OF CARE LISTED BELOW Current Visit: Yes (3) Obesity Status: Chronic Assessment and plan: SEE PLAN OF CARE LISTED BELOW Current Visit: Yes Qualifiers: Obesity classification: adult class 3 (BMI >= 40) Body mass index: BMI 40.0 -44.9 (4) Sleep apnea Status: Chronic Assessment and plan: SEE PLAN OF CARE LISTED BELOW Current Visit: Yes (5) Chest pain Status: Resolved Assessment and plan: SEE PLAN OF CARE LISTED BELOW Current Visit: Yes (6) Elevated troponin Status: Acute Assessment and plan: SEE PLAN OF CARE LISTED BELOW Current Visit: Yes (7) Diabetes Status: Chronic Assessment and plan: SEE PLAN OF CARE LISTED BELOW Current Visit: Yes (8) CAD (coronary artery disease) Status: Chronic Assessment and plan: SEE PLAN OF CARE LISTED BELOW Current Visit: Yes Qualifiers: Coronary Disease-Associated Artery/Lesion type: [place] artery [place] vs. 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 History of frequent kidney stones, untreated sleep apnea. Admitted April 14, 2017 with NSTEMI (unstable angina). Underwent cardiac catheterization which revealed [address] Cuello was consulted for CABG. He is currently scheduled to undergo surgery Wednesday of this week. (CV Surgery schedule is full prior to this date.) Echo: EF 40-45%, grade 1 diastolic dysfunction, mild concentric LVH. No significant valvular abnormality. APRIL 16, 2017: Patient is doing well this morning. Has reported complaints of chest heaviness but this was improved with nitroglycerin paste last evening. I have ordered CIEs and EKG to be done now. No arrhythmias. Sleep medicine evaluated patient last night and he did undergo HSAT last evening. He does have a prior history of obstructive sleep apnea originally diagnosed in 2005. In the past, he has been noncompliant with his device for several years but is willing to try a new device. Greater than 45 minutes was spent today discussing multiple comorbidities and new diagnoses. In the past, patient has not followed up routinely with physicians. Hemoglobin A1c 9.4. This is a new diagnosis of diabetes. Initiating oral medications today. Continue sliding scale as needed. LDL 91. We will continue with lipid-lowering agent as he has quit taking his in the past. Triglycerides 319. Will start [place]-3 twice daily. Consult cardiac rehab. Will further discuss with Dr. Harris and await additional recommendations. APRIL 19, 2017: He reports doing well with mild complaints of chest heaviness on and off over the weekend. No arrhythmias. EKG shows normal sinus rhythm. Chest x-ray reviewed with no acute abnormality. Labs reviewed today, white blood cell count noted at 12, will repeat this in the morning as the patient denies any symptoms of infection. His blood glucose levels appear to be responding well to sliding scale of insulin. Will further discuss with Dr. Olmos and await additional recommendations. APRIL 20, 2017: Patient is doing well this morning. Anxious of CABG in the am. Chest pain is unchanged since admission. No arrhythmias. Labs reviewed today , white blood cell count noted at 12. The patient denies chills, cough, or discomfort with urination. The patient remains afebrile, and blood pressure controlled. Will hold Lovenox for surgery planned April 21, 2017. Will discuss further with Dr. Olmos and await additional recommendations. ASSESSMENT/PLAN: 1. NSTEMI - currently chest pain-free. Hold Lovenox for surgery planned . Continue nitrates . 2. 3VCAD - CABG this week if angina remains stable. 3. UNTREATED HYPERTENSION - tolerating Carvedilol, ARB. 4. DYSLIPIDEMIA - LDL 91. Crestor 10 mg orally each evening. Continue omega- 3 2 g orally twice daily for triglycerides at 319. 5. DIABETES -continue glipizide 5mg orally BID, continue sliding scale. Diabetic education. New diagnosis 6. UNTREATED SLEEP APNEA - appreciate sleep medicines management 7. OBESITY - dietary counseling prior to discharge. Cardiac rehab consult. 8. NON-COMPLIANCE - historically, but he is willing to follow recommended instructions. 9. ICM - EF 40% - 45%. Continue current plan of care. Exam (Progress Note) - Constitutional Vitals: Period Temp Pulse Resp BP Sys/Freeman Pulse Ox Last 24 Hr 97.0 F-98.6 F 62-76 18-20 112-139/59-77 92-97 Exam: General: Appears well with no apparent distress. Pleasant and cooperative. Appears comfortable. HEENT: PERRL, normocephalic, atraumatic. Mucous membranes moist. No jaundice noted. Conjunctiva moist and clear, sclerae anicteric. Neck: Unable to assess JVD due to habitus, no thyromegaly or lymphadenopathy noted. No carotid bruit appreciated. Cardiac: Regular rate and rhythm. No murmur rub or gallop. PMI is nondisplaced. Lungs: Clear to auscultation without accessory muscle use to assist the respiratory pattern. No oxygen required. Abdomen: Soft, bowel sounds normoactive. Nontender and nondistended. No abdominal bruit or thrill noted. No masses noted. Musculoskeletal: No fluid collection. Decreased range of motion is noted. Extremities: No clubbing, cyanosis noted. No edema noted. Upper extremity pulses 2+. Lower extremity pulses 2+. Capillary refill less than 3 seconds. Skin: No unusual lesions or rashes. No skin breakdown appreciated. Neuro: Awake, alert and oriented 3. Moves all extremities well without hemiparesis or paralysis. No essential tremor is appreciated. Result/EKG - Labs CBC & BMP: 04/20/17 04:03 04/20/17 04:03 Lab Results: I have reviewed the past 24 hour labs Labs: Laboratory Results - last 24 hr 04/19/17 04/19/17 04/19/17 12:18 16:24 20:52 WBC RBC Hgb Hct MCV MCH MCHC RDW Plt Count MPV Neut % (Auto) Lymph % (Auto) [place] % (Auto) Eos % (Auto) Baso % (Auto) Neut # (Auto) Lymph # (Auto) [place] # (Auto) Eos # (Auto) Baso # (Auto) Immature Gran % Nucleated RBC % Immature Gran # Nucleated RBCs # Immature Plt Fraction Sodium Potassium Chloride Carbon Dioxide Anion Gap BUN Creatinine GFR Calculation BUN/Creatinine Ratio Glucose POC Glucose 94 129 H 128 H Calculated Osmolality Calcium Magnesium 04/20/17 04/20/17 04/20/17 04:03 04:03 08:21 WBC 12.2 H RBC 5.11 Hgb 15.4 Hct 43.0 MCV 84.1 L MCH 30 MCHC 35.8 RDW 12.5 Plt Count 226 MPV 9.8 Neut % (Auto) 54.6 Lymph % (Auto) 33.7 [place] % (Auto) 5.7 Eos % (Auto) 2.5 Baso % (Auto) 0.5 Neut # (Auto) 6.7 Lymph # (Auto) 4.1 H [place] # (Auto) 0.7 Eos # (Auto) 0.3 Baso # (Auto) 0.1 Immature Gran % 3.0 Nucleated RBC % 0.0 Immature Gran # 0.37 Nucleated RBCs # 0.00 Immature Plt Fraction 0.0 Sodium 138 Potassium 3.8 Chloride 103 Carbon Dioxide 27 Anion Gap 11.8 BUN 9 Creatinine 0.60 L GFR Calculation 177 BUN/Creatinine Ratio 15.00 Glucose 203 H POC Glucose 109 H Calculated Osmolality 279.7 Calcium 8.9 Magnesium 2.2 - EKG EKG results: interpreted by me, sinus rhythm EKG shows: sinus rhythm Quality Measures - VTE Contraindication to Pharmacological VTE Prophylaxis: High Risk of Bleeding Specialty Discharge - Follow Up or Referrals Thien Real Bonnie E, NP, personally performed the services described in this documentation, ascribed by Dennise Lopez NP in my presence, and it is both accurate and complete 638 .
[2017-04-20] MEDS: ROSUVASTATIN 20 MG TABLET PO SCH (21:34)
[2017-04-21] MEDS: NITROGLYCERIN 2% OINT 1 INCH/GM PACK TOP SCH ×2 (01:48→10:55)
[2017-04-21] MEDS ORDERED: PAPAVERINE 60 MG/2 ML VIAL ONE (04:39)
[2017-04-21] MEDS ORDERED: VANCOMYCIN 1,000 MG VIAL ONE (04:40)
[2017-04-21] MEDS ORDERED: CEFUROXIME INJ 1,500 MG in SODIUM CHLORIDE 0.9% 100 ML IV ONE (05:00)
[2017-04-21] MEDS ORDERED: CARVEDILOL 6.25 MG TABLET PO SCH (05:00)
[2017-04-21 05:16] LABS: Basophils # 0.1 10*3/uL (0.0-0.2); Basophils % 0.7 % (0.0-0.8); Eosinophils # 0.2 10*3/uL (0.0-0.87); Hematocrit 43.6 VOL% (42.0-52.0); Hemoglobin 15.4 GM/DL (14.0-18.0); Immature Granulocytes % 3.5 %; Immature Granulocytes Absolute 0.38 #; Lymphocytes # 3.6 10*3/uL (1.4-4.0); Lymphocytes % 33.1 % (21.2-54.2); Mean Corpuscular HGB Conc 35.3 GM/DL (32-36); Mean Corpuscular Hemoglobin 30 PG (27-34); Mean Corpuscular Volume 84.5 FL (87-102); Mean Platelet Volume 9.8 FL (9.6-12.0); Monocytes # 0.8 10*3/uL (0.11-0.8); Neutrophils # 5.8 10*3/uL (1.4-7.4); Neutrophils % 53.7 % (38.7-73.9); Platelet Count 230 T/CUMM (130-400); Red Blood Count 5.16 MC/CUMM (3.8-5.5); Red Cell Distribution Width 12.6 % (9.3-17.3); White Blood Count 10.7 T/CUMM (4-12)
[2017-04-21 05:45] LABS: Calcium 8.8 MG/DL (8.5-10.1); Magnesium 2.4 MG/DL (1.8-2.4); Osmolality,Calculated 278.5 MOS/KG (273-304); Potassium 4.1 MMOL/L (3.5-5.1)
[2017-04-21] MEDS ORDERED: SODIUM CHLORIDE 0.9% 1,000 ML IV SCH (06:00)
[2017-04-21] MEDS ORDERED: ESMOLOL 100 MG/10 ML VIAL IV ONE (06:45)
[2017-04-21] MEDS ORDERED: VECURONIUM 10 MG VIAL IV ONE (06:45)
[2017-04-21] MEDS ORDERED: LIDOCAINE 1% 5 ML VIAL ONE (06:45)
[2017-04-21] MEDS ORDERED: PHENYLEPHRINE 1 MG/10 ML SYRINGE IV ONE (06:45)
[2017-04-21] MEDS ORDERED: ETOMIDATE 20 MG/10 ML VIAL IV ONE (06:45)
[2017-04-21] MEDS ORDERED: NITROGLYCERIN 50 MG/250 ML BOTTLE IV ONE (06:45)
[2017-04-21] MEDS ORDERED: AMINOCAPROIC ACID 5,000 MG/20 ML VIAL IV ONE (06:45)
[2017-04-21] MEDS ORDERED: PHENYLEPHRINE 50 MG/5 ML VIAL ONE (06:45)
[2017-04-21 07:47] LABS: ABG Base Excess 1.7 MMOL/L (-2.5-2.5); ABG HCO3 25.9 MMOL/L (20-26); ABG Oxygen Saturation 98.4 % (95-100); ABG PCO2 39.8 MM HG (35-48); ABG PH 7.425 (7.35-7.45); ABG TCO2 22.1 MMOL/L (23-27); Glucose Heart Surgery 140 MG/DL (74-106); Hematocrit Heart Surgery 46.1 PERCENT (42-52); Ionized Calcium Arterial 1.17 MMOL/L (1.21-1.46); PCO2 Patient Temp Arterial 39.8 MMHG; PH Patient Temp Arterial 7.425; Patient Temperature 37 CELCIUS; Potassium Heart/CVR 4.1 MMOL/L (3.5-5.1); Sodium Heart/CVR 137 MMOL/L (135-145)
[2017-04-21 07:56] LABS: Apearance,Urine CLEAR (Clear); Bilirubin,Urine Negative (Negative); Blood, Urine Moderate mg/dL (Negative); Glucose,Urine (UA) Negative (Negative); Ketones,Urine Negative (Negative); Mucus,Urine Occasional /LPF (Occasional); Nitrite,Urine Negative (Negative); Protein,Urine Negative; RBC,Urine 40 /HPF (0-4); Squamous Epithelial Cell,Urine Occasional /HPF (0-10); Urine Color Yellow (Yellow); Urine Specific Gravity 1.021 (1.001-1.035); WBC,Urine 4 /HPF (0-6)
[2017-04-21 09:28] LABS: PCO2 Patient Temp Venous 40.3 MM HG; PH Patient Temp Venous 7.427; PO2 Patient Temp Venous 33.5 MM HG; Potassium Heart/CVR 5.5 MMOL/L (3.5-5.1); VBG Base Excess 2.2 MEQ/L (0-4); VBG HCO3 25.9 MEQ/L (24-28); VBG Oxygen Saturation 74.9 %; VBG PCO2 46.5 MMHG (41-51); VBG PH 7.384; VBG PO2 41.3 MMHG (17-40)
[2017-04-21] MEDS ORDERED: POTASSIUM CHLORIDE RIDER 100 ML IV ONE (09:53)
[2017-04-21] MEDS ORDERED: NITROPRUSSIDE 50 MG/2 ML VIAL ONE (09:53)
[2017-04-21] MEDS ORDERED: PHENYLEPHRINE DRIP 40 MG/250 ML PREMIX IV ONE (09:53)
[2017-04-21] MEDS ORDERED: ALBUMIN 5% 12.5 GM/250 ML VIAL IV ONE (09:54)
[2017-04-21 09:58] LABS: Hematocrit Heart Surgery 37.6 PERCENT (42-52); Hemoglobin Heart Surgery 12.2 G/DL (14.0-18.0); PCO2 Patient Temp Venous 40.7 MM HG; PH Patient Temp Venous 7.418; PO2 Patient Temp Venous 34.9 MM HG; Potassium Heart/CVR 5.3 MMOL/L (3.5-5.1); VBG Base Excess 1.7 MEQ/L (0-4); VBG HCO3 25.4 MEQ/L (24-28); VBG Oxygen Saturation 75.9 %; VBG PH 7.375
[2017-04-21 10:32] LABS: Hematocrit Heart Surgery 39.2 PERCENT (42-52); Hemoglobin Heart Surgery 12.8 G/DL (14.0-18.0); PCO2 Patient Temp Venous 41.9 MM HG; PH Patient Temp Venous 7.407; VBG Base Excess 1.5 MEQ/L (0-4); VBG HCO3 25.2 MEQ/L (24-28); VBG Oxygen Saturation 71.4 %; VBG PH 7.393; VBG PO2 38.7 MMHG (17-40)
[2017-04-21 10:33] LABS: Potassium Heart/CVR 6.1 MMOL/L (3.5-5.1)
[2017-04-21] MEDS ORDERED: SODIUM BICARBONATE 50 MEQ/50 ML SYRINGE IV ONE ×2 (10:53→11:17)
[2017-04-21] MEDS: ASPIRIN EC 81 MG TABLET PO SCH (10:55)
[2017-04-21] MEDS: OMEGA 3 ACID ETHYL ESTERS 1 GM CAPSULE PO SCH (10:55)
[2017-04-21] MEDS: CHLORHEXIDINE 0.12% ORAL RINSE 60 ML BOTTLE SWISH/SPIT SCH ×2 (10:55→20:25)
[2017-04-21] MEDS: glyBURIDE 5 MG TABLET PO SCH (10:55)
[2017-04-21] MEDS: LOSARTAN 25 MG TABLET PO SCH (10:55)
[2017-04-21] MEDS: PANTOPRAZOLE 40 MG TABLET PO SCH (10:56)
[2017-04-21 11:13] LABS: ABG Base Excess 0.5 MMOL/L (-2.5-2.5); ABG HCO3 24.8 MMOL/L (20-26); ABG Oxygen Saturation 93.8 % (95-100); ABG PH 7.378 (7.35-7.45); ABG PO2 71.4 MM HG (80-95); ABG TCO2 22.8 MMOL/L (23-27); Glucose Heart Surgery 236 MG/DL (74-106); Hemoglobin Heart Surgery 12.7 G/DL (14.0-18.0); Ionized Calcium Arterial 1.18 MMOL/L (1.21-1.46); PH Patient Temp Arterial 7.378; PO2 Patient Temp Arterial 71.4 MM HG; Patient Temperature 37 CELCIUS; Potassium Heart/CVR 4.6 MMOL/L (3.5-5.1); Sodium Heart/CVR 133 MMOL/L (135-145)
[2017-04-21] MEDS ORDERED: DEXTROSE 5% KCL 20 MEQ 20 MEQ/1,000 ML BAG IV ONE (11:16)
[2017-04-21] MEDS ORDERED: methylPREDNISolone SOD SUC 1,000 MG/8 ML VIAL ONE (11:17)
[2017-04-21] MEDS ORDERED: MANNITOL 12.5 GM/50 ML VIAL IV ONE (11:17)
[2017-04-21] MEDS ORDERED: HEPARIN 10,000 UNIT/10 ML VIAL ONE (11:17)
[2017-04-21] MEDS ORDERED: MAGNESIUM SULFATE 1 GM/2 ML VIAL ONE (11:17)
[2017-04-21] MEDS ORDERED: ALBUMIN 25% 25 GM/100 ML VIAL IV ONE (11:17)
[2017-04-21] MEDS ORDERED: FUROSEMIDE 20 MG/2 ML VIAL ONE (11:17)
[2017-04-21] MEDS ORDERED: PROTAMINE SULFATE 250 MG/25 ML VIAL IV ONE (11:17)
[2017-04-21] MEDS ORDERED: PROTAMINE SULFATE 50 MG/5 ML VIAL IV ONE ×3 (11:18→12:26)
[2017-04-21] MEDS ORDERED: INSULIN REGULAR DRIP 100 ML IV ONE (11:19)
[2017-04-21] MEDS ORDERED: POTASSIUM CHLORIDE RIDER 10 MEQ in PREMIX 1 EACH IV PRN (11:56)
[2017-04-21] MEDS ORDERED: ALBUMIN 5% 12.5 GM in PREMIX 1 EACH IV PRN (11:56)
[2017-04-21] MEDS ORDERED: MORPHINE 10 MG/1 ML VIAL IV PRN (11:56)
[2017-04-21] MEDS ORDERED: INSULIN REGULAR 100 UNIT/ML IV ONE (11:56)
[2017-04-21] MEDS ORDERED: MIDAZOLAM 10 MG/2 ML VIAL IV PRN (11:56)
[2017-04-21] MEDS ORDERED: CALCIUM CHLORIDE 1,000 MG/10 ML SYRINGE IV PRN (11:56)
[2017-04-21] MEDS ORDERED: DEXTROSE 50% 25 GM/50 ML SYRINGE IV PRN ×2 (11:56)
[2017-04-21] MEDS ORDERED: MAGNESIUM SULF RIDER 2 GM in PREMIX 1 EACH IV PRN (11:56)
[2017-04-21] MEDS ORDERED: LACTATED RINGERS 250 ML IV PRN (11:56)
[2017-04-21] MEDS ORDERED: INSULIN REGULAR 100 UNIT/ML IV PRN (11:56)
[2017-04-21] MEDS ORDERED: PHENYLEPHRINE DRIP 40 MG/250 ML PREMIX IV PRN (11:56)
[2017-04-21] MEDS ORDERED: MIDAZOLAM 2 MG/2 ML VIAL IV PRN (11:56)
[2017-04-21] MEDS ORDERED: ACETAMINOPHEN 650 MG SUPP RECTAL PRN (11:56)
[2017-04-21] MEDS ORDERED: ONDANSETRON 4 MG/2 ML VIAL IV PRN (11:56)
[2017-04-21] MEDS ORDERED: NITROPRUSSIDE 100 MG in DEXTROSE 5% 250 ML IV PRN (11:56)
[2017-04-21] MEDS ORDERED: MAGNESIUM SULF RIDER 4 GM in PREMIX 1 EACH IV PRN (11:56)
[2017-04-21] MEDS ORDERED: VECURONIUM 10 MG VIAL IV PRN ×2 (11:56)
[2017-04-21] MEDS ORDERED: SODIUM CHLORIDE 0.45% 1,000 ML IV SCH ×2 (12:00)
[2017-04-21] MEDS ORDERED: INSULIN REGULAR DRIP 100 ML IV SCH (12:00)
[2017-04-21] MEDS ORDERED: MIDAZOLAM 10 MG/2 ML VIAL ONE (12:17)
[2017-04-21] MEDS ORDERED: SEVOFLURANE 1 UNIT/15 MINUTE INH ONE (12:17)
[2017-04-21] MEDS ORDERED: SUFentanil 250 MCG/5 ML AMP ONE (12:17)
[2017-04-21] MEDS ORDERED: SODIUM CHLORIDE 0.9% 500 ML IV ONE (12:18)
[2017-04-21] MEDS ORDERED: LACTATED RINGERS 2,000 ML IV ONE (12:18)
[2017-04-21] MEDS ORDERED: SODIUM CHLORIDE 0.9% 2,000 ML IV ONE (12:18)
[2017-04-21 12:22] LABS: ABG Base Excess 0.5 MMOL/L (-2.5-2.5); ABG HCO3 24.7 MMOL/L (20-26); ABG Oxygen Saturation 93.2 % (95-100); ABG PCO2 46.7 MM HG (35-48); ABG PH 7.362 (7.35-7.45); ABG PO2 71.6 MM HG (80-95); Basophils % 0.3 % (0.0-0.8); Eosinophils # 0.1 10*3/uL (0.0-0.87); Eosinophils % 0.6 % (0.00-10.9); Glucose Heart Surgery 213 MG/DL (74-106); Hematocrit 38.1 VOL% (42.0-52.0); Hematocrit Heart Surgery 42.6 PERCENT (42-52); Hemoglobin 13.6 GM/DL (14.0-18.0); Hemoglobin Heart Surgery 13.9 G/DL (14.0-18.0); Immature Granulocytes % 1.8 %; Immature Granulocytes Absolute 0.24 #; Lymphocytes # 1.6 10*3/uL (1.4-4.0); Lymphocytes % 11.5 % (21.2-54.2); Mean Corpuscular HGB Conc 35.7 GM/DL (32-36); Mean Corpuscular Hemoglobin 30 PG (27-34); Mean Corpuscular Volume 84.7 FL (87-102); Monocytes # 0.6 10*3/uL (0.11-0.8); Monocytes % 4.1 % (1.7-12.7); Neutrophils # 11.1 10*3/uL (1.4-7.4); Neutrophils % 81.7 % (38.7-73.9); Platelet Count 198 T/CUMM (130-400); Red Cell Distribution Width 12.7 % (9.3-17.3); White Blood Count 13.6 T/CUMM (4-12)
[2017-04-21 12:34] LABS: INR 1.1; PT Patient Result 11.3 SECS; Partial Thromboplastin Time 26.2 SECS (0-40)
[2017-04-21 12:51] LABS: Albumin 3.4 G/DL (3.4-5.0); Bilirubin,Total 0.8 MG/DL (0.2-1.0); Calcium 8.4 MG/DL (8.5-10.1); Magnesium 2.7 MG/DL (1.8-2.4); Osmolality,Calculated 279.7 MOS/KG (273-304); Potassium 4.1 MMOL/L (3.5-5.1); Total Protein 5.4 G/DL (6.4-8.3)
[2017-04-21] MEDS: KETOROLAC 30 MG/1 ML VIAL IV SCH ×2 (12:51→18:46)
--- NOTE | 2017-04-21 13:11 | Cardiology Progress Note ---
Assessment and Plan (1) NSTEMI (non-ST elevated myocardial infarction) Status: Acute Assessment and plan: 42-year-old male, admitted with non-STEMI, three-vessel disease. CABG planned for Wednesday. Intermittent, mild chest pain. Hemodynamically stable. 04/21: CABG -Resume aspirin, beta tulio, ARB, statin, when p.o. intake feasible. Current Visit: Yes (2) Hypertension Status: Chronic Current Visit: Yes (3) Dyslipidemia Status: Chronic Current Visit: Yes (4) Obesity Status: Chronic Current Visit: Yes Qualifiers: Obesity classification: adult class 3 (BMI >= 40) Body mass index: BMI 40.0 -44.9 (5) Sleep apnea Status: Chronic Current Visit: Yes (6) Diabetes Status: Chronic Current Visit: Yes Cardiology - PN: Subj Interval history: He had CABG done today, currently, hemodynamically stable, off pressors. Still intubated. Exam (Progress Note) - Constitutional Vitals: Period Temp Pulse Resp BP Sys/Freeman Pulse Ox Last 24 Hr 96.4 F-98.4 F 66-89 12-18 114-152/53-78 71-96 General appearance: no acute distress, morbidly obese - Head Head exam: Present: normal inspection, atraumatic - Eye Eye exam: Absent: laceration to eyelids - ENT ENT exam: Present: normal external ear exam, other (Triple-lumen catheter in place.) - Neck Neck exam: Present: normal inspection - Respiratory Respiratory exam: Present: clear to auscultation bilaterally. Absent: stridor, wheezes - Cardiovascular Cardiovascular exam: Present: regular rate and rhythm. Absent: systolic murmur - GI/Abdominal GI/Abdominal exam: Present: hypoactive bowel sounds. Absent: distended - Extremities Exam Extremities exam: Present: other (Dressing over incisions, dry) - Neurological Exam Neurological exam: Present: altered - Skin Skin exam: Present: normal color, warm. Absent: cyanosis Result/EKG - Labs CBC & BMP: 04/21/17 12:00 04/21/17 12:00 Lab Results: I have reviewed the past 24 hour labs Labs: Laboratory Results - last 24 hr 04/20/17 04/20/17 04/20/17 03:57 15:56 19:13 WBC RBC Hgb Hct MCV MCH MCHC RDW Plt Count MPV Neut % (Auto) Lymph % (Auto) [place] % (Auto) Eos % (Auto) Baso % (Auto) Neut # (Auto) Lymph # (Auto) [place] # (Auto) Eos # (Auto) Baso # (Auto) Immature Gran % Nucleated RBC % Immature Gran # Nucleated RBCs # Immature Plt Fraction INR PT Patient/Control Mix Circ Anticoag PTT Patient Temperature ABG pH ABG pH at Pt Temp ABG pCO2 ABG pCO2 at Pt Temp ABG pO2 ABG pO2 at Pt Temp ABG HCO3 ABG Total CO2 ABG O2 Saturation ABG Base Excess ABG Sodium VBG pH VBG pCO2 VBG pO2 VBG HCO3 VBG Total CO2 VBG O2 Saturation VBG Base Excess Hemoglobin Hematocrit Ionized Calcium FiO2 Sodium Potassium Chloride Carbon Dioxide Anion Gap BUN Creatinine GFR Calculation BUN/Creatinine Ratio Glucose POC Glucose 98 115 H Calculated Osmolality Calcium Venous Ioniz Calcium Magnesium Total Bilirubin AST ALT Alkaline Phosphatase Total Protein Albumin Globulin Albumin/Globulin Ratio Urine Color Urine Appearance Urine pH Ur Specific [place] Urine Protein Urine Glucose (UA) Urine Ketones Urine Blood Urine Nitrate Urine Bilirubin Urine Urobilinogen Urine Leukocytes Urine RBC Urine WBC Ur Squamous Epith Cells Urine Mucus Ur Culture Indicated? Blood Type A POSITIVE Antibody Screen Negative Crossmatch See Detail 04/20/17 04/21/17 04/21/17 20:48 04:59 04:59 WBC 10.7 RBC 5.16 Hgb 15.4 Hct 43.6 MCV 84.5 L MCH 30 MCHC 35.3 RDW 12.6 Plt Count 230 MPV 9.8 Neut % (Auto) 53.7 Lymph % (Auto) 33.1 [place] % (Auto) 7.0 Eos % (Auto) 2.0 Baso % (Auto) 0.7 Neut # (Auto) 5.8 Lymph # (Auto) 3.6 [place] # (Auto) 0.8 Eos # (Auto) 0.2 Baso # (Auto) 0.1 Immature Gran % 3.5 Nucleated RBC % 0.0 Immature Gran # 0.38 Nucleated RBCs # 0.00 Immature Plt Fraction 0.0 INR PT Patient/Control Mix Circ Anticoag PTT Patient Temperature ABG pH ABG pH at Pt Temp ABG pCO2 ABG pCO2 at Pt Temp ABG pO2 ABG pO2 at Pt Temp ABG HCO3 ABG Total CO2 ABG O2 Saturation ABG Base Excess ABG Sodium VBG pH VBG pCO2 VBG pO2 VBG HCO3 VBG Total CO2 VBG O2 Saturation VBG Base Excess Hemoglobin Hematocrit Ionized Calcium FiO2 Sodium 139 Potassium 4.1 Chloride 102 Carbon Dioxide 31 Anion Gap 10.1 BUN 10 Creatinine 0.80 GFR Calculation 157 BUN/Creatinine Ratio 12.00 Glucose 145 H POC Glucose 100 Calculated Osmolality 278.5 Calcium 8.8 Venous Ioniz Calcium Magnesium 2.4 Total Bilirubin AST ALT Alkaline Phosphatase Total Protein Albumin Globulin Albumin/Globulin Ratio Urine Color Urine Appearance Urine pH Ur Specific [place] Urine Protein Urine Glucose (UA) Urine Ketones Urine Blood Urine Nitrate Urine Bilirubin Urine Urobilinogen Urine Leukocytes Urine RBC Urine WBC Ur Squamous Epith Cells Urine Mucus Ur Culture Indicated? Blood Type Antibody Screen Crossmatch 04/21/17 04/21/17 04/21/17 05:34 07:40 07:40 WBC RBC Hgb Hct MCV MCH MCHC RDW Plt Count 109 L D MPV Neut % (Auto) Lymph % (Auto) [place] % (Auto) Eos % (Auto) Baso % (Auto) Neut # (Auto) Lymph # (Auto) [place] # (Auto) Eos # (Auto) Baso # (Auto) Immature Gran % Nucleated RBC % Immature Gran # Nucleated RBCs # Immature Plt Fraction INR PT Patient/Control Mix Circ Anticoag PTT Patient Temperature 37 ABG pH 7.425 ABG pH at Pt Temp 7.425 ABG pCO2 39.8 ABG pCO2 at Pt Temp 39.8 ABG pO2 111.0 H ABG pO2 at Pt Temp 111.0 ABG HCO3 25.9 ABG Total CO2 22.1 L ABG O2 Saturation 98.4 ABG Base Excess 1.7 ABG Sodium 137 VBG pH VBG pCO2 VBG pO2 VBG HCO3 VBG Total CO2 VBG O2 Saturation VBG Base Excess Hemoglobin 15.0 Hematocrit 46.1 Ionized Calcium 1.17 L FiO2 Sodium Potassium 4.1 Chloride Carbon Dioxide Anion Gap BUN Creatinine GFR Calculation BUN/Creatinine Ratio Glucose 140 H POC Glucose 127 H Calculated Osmolality Calcium Venous Ioniz Calcium Magnesium Total Bilirubin AST ALT Alkaline Phosphatase Total Protein Albumin Globulin Albumin/Globulin Ratio Urine Color Urine Appearance Urine pH Ur Specific [place] Urine Protein Urine Glucose (UA) Urine Ketones Urine Blood Urine Nitrate Urine Bilirubin Urine Urobilinogen Urine Leukocytes Urine RBC Urine WBC Ur Squamous Epith Cells Urine Mucus Ur Culture Indicated? Blood Type Antibody Screen Crossmatch 04/21/17 04/21/17 04/21/17 07:48 09:25 09:55 WBC RBC Hgb Hct MCV MCH MCHC RDW Plt Count MPV Neut % (Auto) Lymph % (Auto) [place] % (Auto) Eos % (Auto) Baso % (Auto) Neut # (Auto) Lymph # (Auto) [place] # (Auto) Eos # (Auto) Baso # (Auto) Immature Gran % Nucleated RBC % Immature Gran # Nucleated RBCs # Immature Plt Fraction INR PT Patient/Control Mix Circ Anticoag PTT Patient Temperature 34 34 ABG pH ABG pH at Pt Temp 7.427 7.418 ABG pCO2 ABG pCO2 at Pt Temp 40.3 40.7 ABG pO2 ABG pO2 at Pt Temp 33.5 34.9 ABG HCO3 ABG Total CO2 ABG O2 Saturation ABG Base Excess ABG Sodium 129 L 133 L VBG pH 7.384 7.375 VBG pCO2 46.5 47.0 VBG pO2 41.3 H 43.0 H VBG HCO3 25.9 25.4 VBG Total CO2 25.1 24.5 VBG O2 Saturation 74.9 75.9 VBG Base Excess 2.2 1.7 Hemoglobin 11.0 L D 12.2 L Hematocrit 34.0 L 37.6 L Ionized Calcium FiO2 80.00 80.00 Sodium Potassium 5.5 H 5.3 H Chloride Carbon Dioxide Anion Gap BUN Creatinine GFR Calculation BUN/Creatinine Ratio Glucose 318 H 240 H POC Glucose Calculated Osmolality Calcium Venous Ioniz Calcium 0.98 L 1.05 L Magnesium Total Bilirubin AST ALT Alkaline Phosphatase Total Protein Albumin Globulin Albumin/Globulin Ratio Urine Color Yellow Urine Appearance Clear Urine pH 5.0 Ur Specific [place] 1.021 Urine Protein Negative Urine Glucose (UA) Negative Urine Ketones Negative Urine Blood Moderate Urine Nitrate Negative Urine Bilirubin Negative Urine Urobilinogen 2.0 H Urine Leukocytes Trace Urine RBC 40 Urine WBC 4 Ur Squamous Epith Cells Occasional Urine Mucus Occasional Ur Culture Indicated? Not indicated Blood Type Antibody Screen Crossmatch 04/21/17 04/21/17 04/21/17 10:25 10:55 11:12 WBC RBC Hgb Hct MCV MCH MCHC RDW Plt Count 144 D MPV Neut % (Auto) Lymph % (Auto) [place] % (Auto) Eos % (Auto) Baso % (Auto) Neut # (Auto) Lymph # (Auto) [place] # (Auto) Eos # (Auto) Baso # (Auto) Immature Gran % Nucleated RBC % Immature Gran # Nucleated RBCs # Immature Plt Fraction INR PT Patient/Control Mix Circ Anticoag PTT Patient Temperature 36 37 ABG pH 7.378 ABG pH at Pt Temp 7.407 7.378 ABG pCO2 44.0 ABG pCO2 at Pt Temp 41.9 44.0 ABG pO2 71.4 L ABG pO2 at Pt Temp 36.0 71.4 ABG HCO3 24.8 ABG Total CO2 22.8 L ABG O2 Saturation 93.8 L ABG Base Excess 0.5 ABG Sodium 131 L 133 L VBG pH 7.393 VBG pCO2 44.0 VBG pO2 38.7 VBG HCO3 25.2 VBG Total CO2 23.7 VBG O2 Saturation 71.4 VBG Base Excess 1.5 Hemoglobin 12.8 L 12.7 L Hematocrit 39.2 L 39.0 L Ionized Calcium 1.18 L FiO2 80.00 Sodium Potassium 6.1 H* 4.6 Chloride Carbon Dioxide Anion Gap BUN Creatinine GFR Calculation BUN/Creatinine Ratio Glucose 267 H 236 H POC Glucose Calculated Osmolality Calcium Venous Ioniz Calcium 1.06 L Magnesium Total Bilirubin AST ALT Alkaline Phosphatase Total Protein Albumin Globulin Albumin/Globulin Ratio Urine Color Urine Appearance Urine pH Ur Specific [place] Urine Protein Urine Glucose (UA) Urine Ketones Urine Blood Urine Nitrate Urine Bilirubin Urine Urobilinogen Urine Leukocytes Urine RBC Urine WBC Ur Squamous Epith Cells Urine Mucus Ur Culture Indicated? Blood Type Antibody Screen Crossmatch 04/21/17 04/21/17 04/21/17 12:00 12:00 12:00 WBC 13.6 H RBC 4.50 Hgb 13.6 L Hct 38.1 L MCV 84.7 L MCH 30 MCHC 35.7 RDW 12.7 Plt Count 198 D MPV 10.0 Neut % (Auto) 81.7 H Lymph % (Auto) 11.5 L [place] % (Auto) 4.1 Eos % (Auto) 0.6 Baso % (Auto) 0.3 Neut # (Auto) 11.1 H Lymph # (Auto) 1.6 [place] # (Auto) 0.6 Eos # (Auto) 0.1 Baso # (Auto) 0.0 Immature Gran % 1.8 Nucleated RBC % 0.0 Immature Gran # 0.24 Nucleated RBCs # 0.00 Immature Plt Fraction 0.0 INR 1.1 PT Patient/Control Mix 11.3 Circ Anticoag PTT 26.2 Patient Temperature ABG pH ABG pH at Pt Temp ABG pCO2 ABG pCO2 at Pt Temp ABG pO2 ABG pO2 at Pt Temp ABG HCO3 ABG Total CO2 ABG O2 Saturation ABG Base Excess ABG Sodium VBG pH VBG pCO2 VBG pO2 VBG HCO3 VBG Total CO2 VBG O2 Saturation VBG Base Excess Hemoglobin Hematocrit Ionized Calcium FiO2 Sodium 138 Potassium 4.1 Chloride 105 Carbon Dioxide 27 Anion Gap 10.1 BUN 10 Creatinine 0.80 GFR Calculation 157 BUN/Creatinine Ratio 12.00 Glucose 201 H POC Glucose Calculated Osmolality 279.7 Calcium 8.4 L Venous Ioniz Calcium Magnesium 2.7 H Total Bilirubin 0.80 AST 49 H ALT 53 Alkaline Phosphatase 22 L Total Protein 5.4 L Albumin 3.4 Globulin 2.0 L Albumin/Globulin Ratio 1.7 Urine Color Urine Appearance Urine pH Ur Specific [place] Urine Protein Urine Glucose (UA) Urine Ketones Urine Blood Urine Nitrate Urine Bilirubin Urine Urobilinogen Urine Leukocytes Urine RBC Urine WBC Ur Squamous Epith Cells Urine Mucus Ur Culture Indicated? Blood Type Antibody Screen Crossmatch 04/21/17 12:00 WBC RBC Hgb Hct MCV MCH MCHC RDW Plt Count MPV Neut % (Auto) Lymph % (Auto) [place] % (Auto) Eos % (Auto) Baso % (Auto) Neut # (Auto) Lymph # (Auto) [place] # (Auto) Eos # (Auto) Baso # (Auto) Immature Gran % Nucleated RBC % Immature Gran # Nucleated RBCs # Immature Plt Fraction INR PT Patient/Control Mix Circ Anticoag PTT Patient Temperature ABG pH 7.362 ABG pH at Pt Temp ABG pCO2 46.7 ABG pCO2 at Pt Temp ABG pO2 71.6 L ABG pO2 at Pt Temp ABG HCO3 24.7 ABG Total CO2 23.0 ABG O2 Saturation 93.2 L ABG Base Excess 0.5 ABG Sodium VBG pH VBG pCO2 VBG pO2 VBG HCO3 VBG Total CO2 VBG O2 Saturation VBG Base Excess Hemoglobin 13.9 L Hematocrit 42.6 Ionized Calcium FiO2 Sodium Potassium 4.0 Chloride Carbon Dioxide Anion Gap BUN Creatinine GFR Calculation BUN/Creatinine Ratio Glucose 213 H POC Glucose Calculated Osmolality Calcium Venous Ioniz Calcium Magnesium Total Bilirubin AST ALT Alkaline Phosphatase Total Protein Albumin Globulin Albumin/Globulin Ratio Urine Color Urine Appearance Urine pH Ur Specific [place] Urine Protein Urine Glucose (UA) Urine Ketones Urine Blood Urine Nitrate Urine Bilirubin Urine Urobilinogen Urine Leukocytes Urine RBC Urine WBC Ur Squamous Epith Cells Urine Mucus Ur Culture Indicated? Blood Type Antibody Screen Crossmatch - EKG EKG results: interpreted by me Quality Measures - VTE Contraindication to Pharmacological VTE Prophylaxis: High Risk of Bleeding Specialty Discharge - Follow Up or Referrals
--- NOTE | 2017-04-21 13:12 | Operative Note ---
Date of procedure: 04/21/17 Pre-op diagnosis: Coronary artery disease Post-op diagnosis: same Procedure: Procedure: Coronary bypass grafting 4 with a left internal mammary graft to the anterior descending coronary artery and a right internal mammary graft to the right coronary artery. Saphenous vein grafts placed to the diagonal and to the obtuse marginal coronary vessels. Findings: Patient is a 42-year-old man who presented with substernal chest discomfort and cardiac catheterization demonstrating critical coronary disease. At the time of surgery left ventricular function was noted to be normal and internal mammary grafts were placed to the anterior descending coronary artery in the distal main right coronary artery. Saphenous vein grafts were placed to the obtuse marginal and the diagonal coronary arteries. Patient tolerated procedure well and returned to recovery in satisfactory condition. Distal vessels were all of adequate size and free of disease at the site of anastomosis. Procedure: Patient brought the operating room placed in the operating table in supine position. After satisfactory induction of general anesthesia the chest abdomen and legs were prepped and draped in sterile fashion. Greater saphenous vein was harvested from the left lower leg and prepared is an arterial graft. Incision in the leg was closed with 3-0 subcutaneous Monocryl and skin burt in the skin. A standard sternotomy incision was made and the sternum was divided and the heart suspended in a pericardial cradle. Both the right and left internal mammary arteries were dissected free and prepared is an arterial graft. Patient was prepared for cardiopulmonary bypass with systemic heparinization and cannulation of the ascending aorta and right atrium. Cardia pulmonary bypass was begun and the aorta was crossclamped and the heart arrested with cardioplegia solution injected into the aortic root. Heart was protected during the period of crossclamping with topical saline slush. Distal anastomoses were constructed as noted above and then the aorta was unclamped reestablishing cardiac action. Proximal anastomoses were constructed between the ascending aorta and the 2 saphenous vein grafts. Following this the patient was weaned from cardiopulmonary bypass without difficulty and the heparin effect was reversed with protamine. Decannulation was carried out in a defects in the ascending aorta and right atrium closed with 3-0 Prolene. The operative field was inspected for hemostasis and this was considered adequate incision was clean stainless steel wire and the sternum 0 Monopril in the presternal fascia and 3-0 subcuticular Monocryl. Chest tubes were left in the anterior mediastinum and right hemithorax and brought out through separate stab incisions. Sterile dressings were applied the patient was returned to recovery in satisfactory condition. Anesthesia: SADI Surgeon / Physician: Efra Cuello Estimated blood loss: other (Unable to determine because of cardiopulmonary bypass) Condition: stable Disposition: ICU Results - Labs CBC & BMP: 04/21/17 12:00 04/21/17 12:00 Discharge Plan - Discharge Medications No Action No Known Home Medications [No Known Home Medications] - Follow Up or Referral - Forms/Instructions Instructions: Myocardial Infarction (GEN), Coronary Artery Disease (GEN), Heart Healthy Diet (GEN), Coronary Artery Bypass Graft, Velvet Steamer (GEN), Sternal Precautions, Velvet Steamer (GEN)
[2017-04-21] MEDS ORDERED: VERAPAMIL 5 MG/2 ML VIAL ONE (13:40)
--- NOTE | 2017-04-21 13:52 | Event Note ---
[place] catheter placed via the right subclavian vein.
[2017-04-21 14:23] LABS: CKMB % 4.9 %
[2017-04-21 14:29] LABS: Troponin I Only 2.4 NG/ML (0.00-0.045)
--- NOTE | 2017-04-21 14:51 | XRay Report ---
XR chest 1V portable Indication: Line placement Comparison: Chest x-ray dated April 19, 2017 Technique: Single frontal view of the chest. Findings: Endotracheal tube terminates approximately 3.5 cm above the [place]. [place] catheter tip projects over the right hilum with extension by approximately 3 cm into the right hilum. Status post sternotomy. Right-sided internal jugular catheter tip not well visualized but suggested near the distal SVC. Right-sided chest tube noted. Mild bibasilar atelectasis. No definite pneumothorax. Osseous structures appear unchanged. IMPRESSION: Poststernotomy change with lines and tubes as above. PROCEDURE INTERPRETED AT [facility] DEPARTMENT OF RADIOLOGY Final Report Signed by: Dr Tevin Hull
[2017-04-21 14:57] LABS: ABG Base Excess 0.7 MMOL/L (-2.5-2.5); ABG HCO3 24.9 MMOL/L (20-26); ABG Oxygen Saturation 94.9 % (95-100); ABG PCO2 48.1 MM HG (35-48); ABG PH 7.356 (7.35-7.45); ABG PO2 79.3 MM HG (80-95); ABG TCO2 23.3 MMOL/L (23-27); Glucose Heart Surgery 153 MG/DL (74-106); Hematocrit Heart Surgery 43.6 PERCENT (42-52); Hemoglobin Heart Surgery 14.2 G/DL (14.0-18.0); Potassium Heart/CVR 3.9 MMOL/L (3.5-5.1)
[2017-04-21] MEDS: MORPHINE 2 MG/1 ML SYRINGE IV PRN ×2 (15:45→17:15)
[2017-04-21] MEDS ORDERED: FUROSEMIDE 40 MG/4 ML VIAL IV ONE ×2 (16:00→23:10)
[2017-04-21] MEDS ORDERED: ePHEDrine 50 MG/ML AMP ONE (16:06)
[2017-04-21] MEDS ORDERED: FUROSEMIDE 40 MG/4 ML VIAL ONE (16:17)
[2017-04-21 16:40] LABS: ABG Base Excess 1.5 MMOL/L (-2.5-2.5); ABG HCO3 25.7 MMOL/L (20-26); ABG Oxygen Saturation 98.1 % (95-100); ABG PCO2 49.4 MM HG (35-48); ABG PH 7.361 (7.35-7.45); ABG TCO2 23.8 MMOL/L (23-27); Glucose Heart Surgery 137 MG/DL (74-106); Hemoglobin Heart Surgery 15.3 G/DL (14.0-18.0); Potassium Heart/CVR 3.9 MMOL/L (3.5-5.1)
--- NOTE | 2017-04-21 16:59 | Anesthesia Post-Op ---
Anesthesia Post OP - Post Ansesthetic Evaluation Patient seen in post op: Yes Resp: other (Pt about to be extubated by RN and resp therapy) CV: within normal limits Mental: within normal limits Temp: within normal limits [id number]: within normal limits Nausea and Vomiting: within normal limits Pain: within normal limits
[2017-04-21 18:08] LABS: ABG Base Excess 1.4 MMOL/L (-2.5-2.5); ABG HCO3 25.5 MMOL/L (20-26); ABG Oxygen Saturation 93.9 % (95-100); ABG PCO2 41.7 MM HG (35-48); ABG PH 7.407 (7.35-7.45); ABG PO2 70.5 MM HG (80-95); ABG TCO2 22.3 MMOL/L (23-27); Glucose Heart Surgery 216 MG/DL (74-106); Hematocrit Heart Surgery 46.7 PERCENT (42-52); Hemoglobin Heart Surgery 15.2 G/DL (14.0-18.0); Potassium Heart/CVR 4.1 MMOL/L (3.5-5.1)
[2017-04-21 20:21] LABS: ABG Base Excess 1.1 MMOL/L (-2.5-2.5); ABG HCO3 25.2 MMOL/L (20-26); ABG PCO2 45.4 MM HG (35-48); ABG PH 7.379 (7.35-7.45); ABG PO2 66.2 MM HG (80-95); ABG TCO2 23.1 MMOL/L (23-27); Glucose Heart Surgery 215 MG/DL (74-106); Hematocrit Heart Surgery 43.9 PERCENT (42-52); Hemoglobin Heart Surgery 14.3 G/DL (14.0-18.0); Potassium Heart/CVR 3.8 MMOL/L (3.5-5.1)
[2017-04-21] MEDS: CEFUROXIME INJ 1,500 MG in SODIUM CHLORIDE 0.9% 100 ML IV SCH (20:24)
[2017-04-21] MEDS: POTASSIUM CHLORIDE RIDER 20 MEQ in PREMIX 1 EACH IV PRN (21:14)
[2017-04-21 21:17] LABS: Troponin I Only 5.33 NG/ML (0.00-0.045)
[2017-04-22 00:21] LABS: ABG Base Excess 1.5 MMOL/L (-2.5-2.5); ABG HCO3 26.5 MMOL/L (20-26); ABG Oxygen Saturation 93.3 % (95-100); ABG PCO2 43.2 MM HG (35-48); ABG PH 7.406 (7.35-7.45); ABG PO2 67.5 MM HG (80-95); ABG TCO2 27.8 MMOL/L (23-27); Glucose Heart Surgery 126 MG/DL (74-106); Hemoglobin Heart Surgery 14.2 G/DL (14.0-18.0); Potassium Heart/CVR 4.1 MMOL/L (3.5-5.1)
[2017-04-22] MEDS: KETOROLAC 30 MG/1 ML VIAL IV SCH ×5 (00:24→20:48)
[2017-04-22] MEDS: POTASSIUM CHLORIDE RIDER 20 MEQ in PREMIX 1 EACH IV PRN ×2 (00:45→04:38)
[2017-04-22 04:27] LABS: ABG Base Excess 2.4 MMOL/L (-2.5-2.5); ABG HCO3 26.4 MMOL/L (20-26); ABG Oxygen Saturation 92.7 % (95-100); ABG PCO2 44.6 MM HG (35-48); ABG PH 7.402 (7.35-7.45); ABG PO2 66.8 MM HG (80-95); Glucose Heart Surgery 137 MG/DL (74-106); Hematocrit Heart Surgery 42.2 PERCENT (42-52); Hemoglobin Heart Surgery 13.7 G/DL (14.0-18.0); Potassium Heart/CVR 3.9 MMOL/L (3.5-5.1)
[2017-04-22 04:40] LABS: Basophils % 0.2 % (0.0-0.8); Hematocrit 38.4 VOL% (42.0-52.0); Hemoglobin 13.4 GM/DL (14.0-18.0); Immature Granulocytes % 1.1 %; Immature Granulocytes Absolute 0.22 #; Lymphocytes # 1.3 10*3/uL (1.4-4.0); Lymphocytes % 6.7 % (21.2-54.2); Mean Corpuscular HGB Conc 34.9 GM/DL (32-36); Mean Corpuscular Hemoglobin 30 PG (27-34); Mean Corpuscular Volume 86.1 FL (87-102); Mean Platelet Volume 10.2 FL (9.6-12.0); Monocytes # 1.1 10*3/uL (0.11-0.8); Monocytes % 5.8 % (1.7-12.7); Neutrophils # 16.9 10*3/uL (1.4-7.4); Neutrophils % 86.2 % (38.7-73.9); Platelet Count 195 T/CUMM (130-400); Red Blood Count 4.46 MC/CUMM (3.8-5.5); Red Cell Distribution Width 12.9 % (9.3-17.3); White Blood Count 19.6 T/CUMM (4-12)
[2017-04-22 04:59] LABS: Albumin 3.5 G/DL (3.4-5.0); Bilirubin,Direct 0.1 MG/DL (0.0-0.20); Bilirubin,Total 0.4 MG/DL (0.2-1.0); CKMB % 4.1 %; Calcium 8.3 MG/DL (8.5-10.1); Magnesium 2.3 MG/DL (1.8-2.4); Osmolality,Calculated 281.3 MOS/KG (273-304); Total Protein 5.9 G/DL (6.4-8.3)
[2017-04-22 05:01] LABS: Troponin I Only 6.71 NG/ML (0.00-0.045)
[2017-04-22] MEDS: MORPHINE 2 MG/1 ML SYRINGE IV PRN (06:32)
--- NOTE | 2017-04-22 07:18 | EKG Report ---
Stationary ECG Study [facility] Test Date: 04/22/2017 7:19:03 AM Pat Name: YOUSUF GUILLEN Department: Room: 104 Gender: M Manager Night: KEITH : 1975 Requested by: Efra Nicholson Order Number: [id number] Chencho MD: DINORAH NI Intervals [place]inne Rate: 75 P: 69 WY: 184 QRS: 67 QRSD: 87 T: 64 QT: 368 QTc: 397 Interpretive Statements SINUS RHYTHM Electronically Signed On 04-22-17 12:27:00 CDT by DINORAH NI [email or web address]
[2017-04-22] MEDS: CEFUROXIME INJ 1,500 MG in SODIUM CHLORIDE 0.9% 100 ML IV SCH (07:45)
--- NOTE | 2017-04-22 07:58 | Cardiothoracic Progress Note ---
Cardiothoracic Subjective Interval history: Patient is awake alert and extubated. He has been stable through the night and vital signs are stable this morning with normal sinus rhythm and a well- controlled blood pressure. Cardiac output is 8 L/min. Chest tube drainage is minimal and his chest tubes are removed. Urine output has been good and creatinine is within normal limits. Overall his progress appears satisfactory and we will plan transfer to telemetry later this morning. Exam (Progress Note) - Constitutional Vitals: Period Temp Pulse Resp BP Sys/Freeman Pulse Ox Last 24 Hr 98.0 F-99.6 F 68-89 12-20 110-164/53-79 91-100 Result/EKG - Labs CBC & BMP: 04/22/17 04:20 04/22/17 04:20 Labs: Laboratory Results - last 24 hr 04/20/17 04/21/17 04/21/17 03:57 07:48 09:25 WBC RBC Hgb Hct MCV MCH MCHC RDW Plt Count MPV Neut % (Auto) Lymph % (Auto) [place] % (Auto) Eos % (Auto) Baso % (Auto) Neut # (Auto) Lymph # (Auto) [place] # (Auto) Eos # (Auto) Baso # (Auto) Immature Gran % Nucleated RBC % Immature Gran # Nucleated RBCs # Immature Plt Fraction INR PT Patient/Control Mix Circ Anticoag PTT Patient Temperature 34 ABG pH ABG pH at Pt Temp 7.427 ABG pCO2 ABG pCO2 at Pt Temp 40.3 ABG pO2 ABG pO2 at Pt Temp 33.5 ABG HCO3 ABG Total CO2 ABG O2 Saturation ABG Base Excess ABG Sodium 129 L VBG pH 7.384 VBG pCO2 46.5 VBG pO2 41.3 H VBG HCO3 25.9 VBG Total CO2 25.1 VBG O2 Saturation 74.9 VBG Base Excess 2.2 Hemoglobin 11.0 L D Hematocrit 34.0 L Potassium 5.5 H Glucose 318 H Ionized Calcium FiO2 80.00 Sodium Chloride Carbon Dioxide Anion Gap BUN Creatinine GFR Calculation BUN/Creatinine Ratio POC Glucose Calculated Osmolality Calcium Venous Ioniz Calcium 0.98 L Magnesium Total Bilirubin Direct Bilirubin AST ALT Alkaline Phosphatase Total Creatine Kinase CK-MB (CK-2) CK and CKMB Interp Troponin I Total Protein Albumin Globulin Albumin/Globulin Ratio Urine Color Yellow Urine Appearance Clear Urine pH 5.0 Ur Specific [place] 1.021 Urine Protein Negative Urine Glucose (UA) Negative Urine Ketones Negative Urine Blood Moderate Urine Nitrate Negative Urine Bilirubin Negative Urine Urobilinogen 2.0 H Urine Leukocytes Trace Urine RBC 40 Urine WBC 4 Ur Squamous Epith Cells Occasional Urine Mucus Occasional Ur Culture Indicated? Not indicated Blood Type A POSITIVE Antibody Screen Negative Crossmatch See Detail 04/21/17 04/21/17 04/21/17 09:55 10:25 10:55 WBC RBC Hgb Hct MCV MCH MCHC RDW Plt Count 144 D MPV Neut % (Auto) Lymph % (Auto) [place] % (Auto) Eos % (Auto) Baso % (Auto) Neut # (Auto) Lymph # (Auto) [place] # (Auto) Eos # (Auto) Baso # (Auto) Immature Gran % Nucleated RBC % Immature Gran # Nucleated RBCs # Immature Plt Fraction INR PT Patient/Control Mix Circ Anticoag PTT Patient Temperature 34 36 ABG pH ABG pH at Pt Temp 7.418 7.407 ABG pCO2 ABG pCO2 at Pt Temp 40.7 41.9 ABG pO2 ABG pO2 at Pt Temp 34.9 36.0 ABG HCO3 ABG Total CO2 ABG O2 Saturation ABG Base Excess ABG Sodium 133 L 131 L VBG pH 7.375 7.393 VBG pCO2 47.0 44.0 VBG pO2 43.0 H 38.7 VBG HCO3 25.4 25.2 VBG Total CO2 24.5 23.7 VBG O2 Saturation 75.9 71.4 VBG Base Excess 1.7 1.5 Hemoglobin 12.2 L 12.8 L Hematocrit 37.6 L 39.2 L Potassium 5.3 H 6.1 H* Glucose 240 H 267 H Ionized Calcium FiO2 80.00 80.00 Sodium Chloride Carbon Dioxide Anion Gap BUN Creatinine GFR Calculation BUN/Creatinine Ratio POC Glucose Calculated Osmolality Calcium Venous Ioniz Calcium 1.05 L 1.06 L Magnesium Total Bilirubin Direct Bilirubin AST ALT Alkaline Phosphatase Total Creatine Kinase CK-MB (CK-2) CK and CKMB Interp Troponin I Total Protein Albumin Globulin Albumin/Globulin Ratio Urine Color Urine Appearance Urine pH Ur Specific [place] Urine Protein Urine Glucose (UA) Urine Ketones Urine Blood Urine Nitrate Urine Bilirubin Urine Urobilinogen Urine Leukocytes Urine RBC Urine WBC Ur Squamous Epith Cells Urine Mucus Ur Culture Indicated? Blood Type Antibody Screen Crossmatch 04/21/17 04/21/17 04/21/17 11:12 12:00 12:00 WBC 13.6 H RBC 4.50 Hgb 13.6 L Hct 38.1 L MCV 84.7 L MCH 30 MCHC 35.7 RDW 12.7 Plt Count 198 D MPV 10.0 Neut % (Auto) 81.7 H Lymph % (Auto) 11.5 L [place] % (Auto) 4.1 Eos % (Auto) 0.6 Baso % (Auto) 0.3 Neut # (Auto) 11.1 H Lymph # (Auto) 1.6 [place] # (Auto) 0.6 Eos # (Auto) 0.1 Baso # (Auto) 0.0 Immature Gran % 1.8 Nucleated RBC % 0.0 Immature Gran # 0.24 Nucleated RBCs # 0.00 Immature Plt Fraction 0.0 INR 1.1 PT Patient/Control Mix 11.3 Circ Anticoag PTT 26.2 Patient Temperature 37 ABG pH 7.378 ABG pH at Pt Temp 7.378 ABG pCO2 44.0 ABG pCO2 at Pt Temp 44.0 ABG pO2 71.4 L ABG pO2 at Pt Temp 71.4 ABG HCO3 24.8 ABG Total CO2 22.8 L ABG O2 Saturation 93.8 L ABG Base Excess 0.5 ABG Sodium 133 L VBG pH VBG pCO2 VBG pO2 VBG HCO3 VBG Total CO2 VBG O2 Saturation VBG Base Excess Hemoglobin 12.7 L Hematocrit 39.0 L Potassium 4.6 Glucose 236 H Ionized Calcium 1.18 L FiO2 Sodium Chloride Carbon Dioxide Anion Gap BUN Creatinine GFR Calculation BUN/Creatinine Ratio POC Glucose Calculated Osmolality Calcium Venous Ioniz Calcium Magnesium Total Bilirubin Direct Bilirubin AST ALT Alkaline Phosphatase Total Creatine Kinase CK-MB (CK-2) CK and CKMB Interp Troponin I Total Protein Albumin Globulin Albumin/Globulin Ratio Urine Color Urine Appearance Urine pH Ur Specific [place] Urine Protein Urine Glucose (UA) Urine Ketones Urine Blood Urine Nitrate Urine Bilirubin Urine Urobilinogen Urine Leukocytes Urine RBC Urine WBC Ur Squamous Epith Cells Urine Mucus Ur Culture Indicated? Blood Type Antibody Screen Crossmatch 04/21/17 04/21/17 04/21/17 12:00 12:00 12:00 WBC RBC Hgb Hct MCV MCH MCHC RDW Plt Count MPV Neut % (Auto) Lymph % (Auto) [place] % (Auto) Eos % (Auto) Baso % (Auto) Neut # (Auto) Lymph # (Auto) [place] # (Auto) Eos # (Auto) Baso # (Auto) Immature Gran % Nucleated RBC % Immature Gran # Nucleated RBCs # Immature Plt Fraction INR PT Patient/Control Mix Circ Anticoag PTT Patient Temperature ABG pH 7.362 ABG pH at Pt Temp ABG pCO2 46.7 ABG pCO2 at Pt Temp ABG pO2 71.6 L ABG pO2 at Pt Temp ABG HCO3 24.7 ABG Total CO2 23.0 ABG O2 Saturation 93.2 L ABG Base Excess 0.5 ABG Sodium VBG pH VBG pCO2 VBG pO2 VBG HCO3 VBG Total CO2 VBG O2 Saturation VBG Base Excess Hemoglobin 13.9 L Hematocrit 42.6 Potassium 4.1 4.0 Glucose 201 H 213 H Ionized Calcium FiO2 Sodium 138 Chloride 105 Carbon Dioxide 27 Anion Gap 10.1 BUN 10 Creatinine 0.80 GFR Calculation 157 BUN/Creatinine Ratio 12.00 POC Glucose Calculated Osmolality 279.7 Calcium 8.4 L Venous Ioniz Calcium Magnesium 2.7 H Total Bilirubin 0.80 Direct Bilirubin AST 49 H ALT 53 Alkaline Phosphatase 22 L Total Creatine Kinase 255 D CK-MB (CK-2) 12.6 H D CK and CKMB Interp 4.9 Troponin I 2.400 H D Total Protein 5.4 L Albumin 3.4 Globulin 2.0 L Albumin/Globulin Ratio 1.7 Urine Color Urine Appearance Urine pH Ur Specific [place] Urine Protein Urine Glucose (UA) Urine Ketones Urine Blood Urine Nitrate Urine Bilirubin Urine Urobilinogen Urine Leukocytes Urine RBC Urine WBC Ur Squamous Epith Cells Urine Mucus Ur Culture Indicated? Blood Type Antibody Screen Crossmatch 04/21/17 04/21/17 04/21/17 13:00 14:07 14:47 WBC RBC Hgb Hct MCV MCH MCHC RDW Plt Count MPV Neut % (Auto) Lymph % (Auto) [place] % (Auto) Eos % (Auto) Baso % (Auto) Neut # (Auto) Lymph # (Auto) [place] # (Auto) Eos # (Auto) Baso # (Auto) Immature Gran % Nucleated RBC % Immature Gran # Nucleated RBCs # Immature Plt Fraction INR PT Patient/Control Mix Circ Anticoag PTT Patient Temperature ABG pH 7.356 ABG pH at Pt Temp ABG pCO2 48.1 H ABG pCO2 at Pt Temp ABG pO2 79.3 L ABG pO2 at Pt Temp ABG HCO3 24.9 ABG Total CO2 23.3 ABG O2 Saturation 94.9 L ABG Base Excess 0.7 ABG Sodium VBG pH VBG pCO2 VBG pO2 VBG HCO3 VBG Total CO2 VBG O2 Saturation VBG Base Excess Hemoglobin 14.2 Hematocrit 43.6 Potassium 3.9 Glucose 153 H Ionized Calcium FiO2 Sodium Chloride Carbon Dioxide Anion Gap BUN Creatinine GFR Calculation BUN/Creatinine Ratio POC Glucose 185 H 159 H Calculated Osmolality Calcium Venous Ioniz Calcium Magnesium Total Bilirubin Direct Bilirubin AST ALT Alkaline Phosphatase Total Creatine Kinase CK-MB (CK-2) CK and CKMB Interp Troponin I Total Protein Albumin Globulin Albumin/Globulin Ratio Urine Color Urine Appearance Urine pH Ur Specific [place] Urine Protein Urine Glucose (UA) Urine Ketones Urine Blood Urine Nitrate Urine Bilirubin Urine Urobilinogen Urine Leukocytes Urine RBC Urine WBC Ur Squamous Epith Cells Urine Mucus Ur Culture Indicated? Blood Type Antibody Screen Crossmatch 04/21/17 04/21/17 04/21/17 15:57 16:32 18:00 WBC RBC Hgb Hct MCV MCH MCHC RDW Plt Count MPV Neut % (Auto) Lymph % (Auto) [place] % (Auto) Eos % (Auto) Baso % (Auto) Neut # (Auto) Lymph # (Auto) [place] # (Auto) Eos # (Auto) Baso # (Auto) Immature Gran % Nucleated RBC % Immature Gran # Nucleated RBCs # Immature Plt Fraction INR PT Patient/Control Mix Circ Anticoag PTT Patient Temperature ABG pH 7.361 ABG pH at Pt Temp ABG pCO2 49.4 H ABG pCO2 at Pt Temp ABG pO2 116.0 H ABG pO2 at Pt Temp ABG HCO3 25.7 ABG Total CO2 23.8 ABG O2 Saturation 98.1 ABG Base Excess 1.5 ABG Sodium VBG pH VBG pCO2 VBG pO2 VBG HCO3 VBG Total CO2 VBG O2 Saturation VBG Base Excess Hemoglobin 15.3 Hematocrit 47.0 Potassium 3.9 Glucose 137 H Ionized Calcium FiO2 Sodium Chloride Carbon Dioxide Anion Gap BUN Creatinine GFR Calculation BUN/Creatinine Ratio POC Glucose 116 H 149 H Calculated Osmolality Calcium Venous Ioniz Calcium Magnesium Total Bilirubin Direct Bilirubin AST ALT Alkaline Phosphatase Total Creatine Kinase CK-MB (CK-2) CK and CKMB Interp Troponin I Total Protein Albumin Globulin Albumin/Globulin Ratio Urine Color Urine Appearance Urine pH Ur Specific [place] Urine Protein Urine Glucose (UA) Urine Ketones Urine Blood Urine Nitrate Urine Bilirubin Urine Urobilinogen Urine Leukocytes Urine RBC Urine WBC Ur Squamous Epith Cells Urine Mucus Ur Culture Indicated? Blood Type Antibody Screen Crossmatch 04/21/17 04/21/17 04/21/17 18:02 19:21 20:16 WBC RBC Hgb Hct MCV MCH MCHC RDW Plt Count MPV Neut % (Auto) Lymph % (Auto) [place] % (Auto) Eos % (Auto) Baso % (Auto) Neut # (Auto) Lymph # (Auto) [place] # (Auto) Eos # (Auto) Baso # (Auto) Immature Gran % Nucleated RBC % Immature Gran # Nucleated RBCs # Immature Plt Fraction INR PT Patient/Control Mix Circ Anticoag PTT Patient Temperature ABG pH 7.407 7.379 ABG pH at Pt Temp ABG pCO2 41.7 45.4 ABG pCO2 at Pt Temp ABG pO2 70.5 L 66.2 L ABG pO2 at Pt Temp ABG HCO3 25.5 25.2 ABG Total CO2 22.3 L 23.1 ABG O2 Saturation 93.9 L 92.0 L ABG Base Excess 1.4 1.1 ABG Sodium VBG pH VBG pCO2 VBG pO2 VBG HCO3 VBG Total CO2 VBG O2 Saturation VBG Base Excess Hemoglobin 15.2 14.3 Hematocrit 46.7 43.9 Potassium 4.1 3.8 Glucose 216 H 215 H Ionized Calcium FiO2 Sodium Chloride Carbon Dioxide Anion Gap BUN Creatinine GFR Calculation BUN/Creatinine Ratio POC Glucose 208 H Calculated Osmolality Calcium Venous Ioniz Calcium Magnesium Total Bilirubin Direct Bilirubin AST ALT Alkaline Phosphatase Total Creatine Kinase CK-MB (CK-2) CK and CKMB Interp Troponin I Total Protein Albumin Globulin Albumin/Globulin Ratio Urine Color Urine Appearance Urine pH Ur Specific [place] Urine Protein Urine Glucose (UA) Urine Ketones Urine Blood Urine Nitrate Urine Bilirubin Urine Urobilinogen Urine Leukocytes Urine RBC Urine WBC Ur Squamous Epith Cells Urine Mucus Ur Culture Indicated? Blood Type Antibody Screen Crossmatch 04/21/17 04/21/17 04/21/17 20:19 21:19 22:07 WBC RBC Hgb Hct MCV MCH MCHC RDW Plt Count MPV Neut % (Auto) Lymph % (Auto) [place] % (Auto) Eos % (Auto) Baso % (Auto) Neut # (Auto) Lymph # (Auto) [place] # (Auto) Eos # (Auto) Baso # (Auto) Immature Gran % Nucleated RBC % Immature Gran # Nucleated RBCs # Immature Plt Fraction INR PT Patient/Control Mix Circ Anticoag PTT Patient Temperature ABG pH ABG pH at Pt Temp ABG pCO2 ABG pCO2 at Pt Temp ABG pO2 ABG pO2 at Pt Temp ABG HCO3 ABG Total CO2 ABG O2 Saturation ABG Base Excess ABG Sodium VBG pH VBG pCO2 VBG pO2 VBG HCO3 VBG Total CO2 VBG O2 Saturation VBG Base Excess Hemoglobin Hematocrit Potassium Glucose Ionized Calcium FiO2 Sodium Chloride Carbon Dioxide Anion Gap BUN Creatinine GFR Calculation BUN/Creatinine Ratio POC Glucose 156 H 102 Calculated Osmolality Calcium Venous Ioniz Calcium Magnesium Total Bilirubin Direct Bilirubin AST ALT Alkaline Phosphatase Total Creatine Kinase 623 H D CK-MB (CK-2) 25.1 H D CK and CKMB Interp 4.0 Troponin I 5.330 H D Total Protein Albumin Globulin Albumin/Globulin Ratio Urine Color Urine Appearance Urine pH Ur Specific [place] Urine Protein Urine Glucose (UA) Urine Ketones Urine Blood Urine Nitrate Urine Bilirubin Urine Urobilinogen Urine Leukocytes Urine RBC Urine WBC Ur Squamous Epith Cells Urine Mucus Ur Culture Indicated? Blood Type Antibody Screen Crossmatch 04/21/17 04/21/17 04/22/17 22:10 23:14 00:12 WBC RBC Hgb Hct MCV MCH MCHC RDW Plt Count MPV Neut % (Auto) Lymph % (Auto) [place] % (Auto) Eos % (Auto) Baso % (Auto) Neut # (Auto) Lymph # (Auto) [place] # (Auto) Eos # (Auto) Baso # (Auto) Immature Gran % Nucleated RBC % Immature Gran # Nucleated RBCs # Immature Plt Fraction INR PT Patient/Control Mix Circ Anticoag PTT Patient Temperature ABG pH 7.406 ABG pH at Pt Temp ABG pCO2 43.2 ABG pCO2 at Pt Temp ABG pO2 67.5 L ABG pO2 at Pt Temp ABG HCO3 26.5 H ABG Total CO2 27.8 H ABG O2 Saturation 93.3 L ABG Base Excess 1.5 ABG Sodium VBG pH VBG pCO2 VBG pO2 VBG HCO3 VBG Total CO2 VBG O2 Saturation VBG Base Excess Hemoglobin 14.2 Hematocrit 42.0 Potassium 4.1 Glucose 126 H Ionized Calcium FiO2 Sodium Chloride Carbon Dioxide Anion Gap BUN Creatinine GFR Calculation BUN/Creatinine Ratio POC Glucose 162 H 148 H Calculated Osmolality Calcium Venous Ioniz Calcium Magnesium Total Bilirubin Direct Bilirubin AST ALT Alkaline Phosphatase Total Creatine Kinase CK-MB (CK-2) CK and CKMB Interp Troponin I Total Protein Albumin Globulin Albumin/Globulin Ratio Urine Color Urine Appearance Urine pH Ur Specific [place] Urine Protein Urine Glucose (UA) Urine Ketones Urine Blood Urine Nitrate Urine Bilirubin Urine Urobilinogen Urine Leukocytes Urine RBC Urine WBC Ur Squamous Epith Cells Urine Mucus Ur Culture Indicated? Blood Type Antibody Screen Crossmatch 04/22/17 04/22/17 04/22/17 01:03 02:09 03:12 WBC RBC Hgb Hct MCV MCH MCHC RDW Plt Count MPV Neut % (Auto) Lymph % (Auto) [place] % (Auto) Eos % (Auto) Baso % (Auto) Neut # (Auto) Lymph # (Auto) [place] # (Auto) Eos # (Auto) Baso # (Auto) Immature Gran % Nucleated RBC % Immature Gran # Nucleated RBCs # Immature Plt Fraction INR PT Patient/Control Mix Circ Anticoag PTT Patient Temperature ABG pH ABG pH at Pt Temp ABG pCO2 ABG pCO2 at Pt Temp ABG pO2 ABG pO2 at Pt Temp ABG HCO3 ABG Total CO2 ABG O2 Saturation ABG Base Excess ABG Sodium VBG pH VBG pCO2 VBG pO2 VBG HCO3 VBG Total CO2 VBG O2 Saturation VBG Base Excess Hemoglobin Hematocrit Potassium Glucose Ionized Calcium FiO2 Sodium Chloride Carbon Dioxide Anion Gap BUN Creatinine GFR Calculation BUN/Creatinine Ratio POC Glucose 123 H 131 H 125 H Calculated Osmolality Calcium Venous Ioniz Calcium Magnesium Total Bilirubin Direct Bilirubin AST ALT Alkaline Phosphatase Total Creatine Kinase CK-MB (CK-2) CK and CKMB Interp Troponin I Total Protein Albumin Globulin Albumin/Globulin Ratio Urine Color Urine Appearance Urine pH Ur Specific [place] Urine Protein Urine Glucose (UA) Urine Ketones Urine Blood Urine Nitrate Urine Bilirubin Urine Urobilinogen Urine Leukocytes Urine RBC Urine WBC Ur Squamous Epith Cells Urine Mucus Ur Culture Indicated? Blood Type Antibody Screen Crossmatch 04/22/17 04/22/17 04/22/17 04:20 04:20 04:20 WBC 19.6 H D RBC 4.46 Hgb 13.4 L Hct 38.4 L MCV 86.1 L MCH 30 MCHC 34.9 RDW 12.9 Plt Count 195 MPV 10.2 Neut % (Auto) 86.2 H Lymph % (Auto) 6.7 L [place] % (Auto) 5.8 Eos % (Auto) 0.0 Baso % (Auto) 0.2 Neut # (Auto) 16.9 H Lymph # (Auto) 1.3 L [place] # (Auto) 1.1 H Eos # (Auto) 0.0 Baso # (Auto) 0.0 Immature Gran % 1.1 Nucleated RBC % 0.0 Immature Gran # 0.22 Nucleated RBCs # 0.00 Immature Plt Fraction 0.0 INR PT Patient/Control Mix Circ Anticoag PTT Patient Temperature ABG pH 7.402 ABG pH at Pt Temp ABG pCO2 44.6 ABG pCO2 at Pt Temp ABG pO2 66.8 L ABG pO2 at Pt Temp ABG HCO3 26.4 H ABG Total CO2 24.0 ABG O2 Saturation 92.7 L ABG Base Excess 2.4 ABG Sodium VBG pH VBG pCO2 VBG pO2 VBG HCO3 VBG Total CO2 VBG O2 Saturation VBG Base Excess Hemoglobin 13.7 L Hematocrit 42.2 Potassium 4.0 3.9 Glucose 124 H 137 H Ionized Calcium FiO2 Sodium 141 Chloride 105 Carbon Dioxide 29 Anion Gap 11.0 BUN 12 Creatinine 0.60 L GFR Calculation 177 BUN/Creatinine Ratio 20.00 POC Glucose Calculated Osmolality 281.3 Calcium 8.3 L Venous Ioniz Calcium Magnesium 2.3 Total Bilirubin 0.40 Direct Bilirubin 0.10 AST 59 H ALT 52 Alkaline Phosphatase 21 L Total Creatine Kinase 750 H D CK-MB (CK-2) 30.4 H D CK and CKMB Interp 4.1 Troponin I 6.710 H D Total Protein 5.9 L Albumin 3.5 Globulin 2.4 Albumin/Globulin Ratio 1.4 Urine Color Urine Appearance Urine pH Ur Specific [place] Urine Protein Urine Glucose (UA) Urine Ketones Urine Blood Urine Nitrate Urine Bilirubin Urine Urobilinogen Urine Leukocytes Urine RBC Urine WBC Ur Squamous Epith Cells Urine Mucus Ur Culture Indicated? Blood Type Antibody Screen Crossmatch 04/22/17 04/22/17 05:42 06:18 WBC RBC Hgb Hct MCV MCH MCHC RDW Plt Count MPV Neut % (Auto) Lymph % (Auto) [place] % (Auto) Eos % (Auto) Baso % (Auto) Neut # (Auto) Lymph # (Auto) [place] # (Auto) Eos # (Auto) Baso # (Auto) Immature Gran % Nucleated RBC % Immature Gran # Nucleated RBCs # Immature Plt Fraction INR PT Patient/Control Mix Circ Anticoag PTT Patient Temperature ABG pH ABG pH at Pt Temp ABG pCO2 ABG pCO2 at Pt Temp ABG pO2 ABG pO2 at Pt Temp ABG HCO3 ABG Total CO2 ABG O2 Saturation ABG Base Excess ABG Sodium VBG pH VBG pCO2 VBG pO2 VBG HCO3 VBG Total CO2 VBG O2 Saturation VBG Base Excess Hemoglobin Hematocrit Potassium Glucose Ionized Calcium FiO2 Sodium Chloride Carbon Dioxide Anion Gap BUN Creatinine GFR Calculation BUN/Creatinine Ratio POC Glucose 106 121 H Calculated Osmolality Calcium Venous Ioniz Calcium Magnesium Total Bilirubin Direct Bilirubin AST ALT Alkaline Phosphatase Total Creatine Kinase CK-MB (CK-2) CK and CKMB Interp Troponin I Total Protein Albumin Globulin Albumin/Globulin Ratio Urine Color Urine Appearance Urine pH Ur Specific [place] Urine Protein Urine Glucose (UA) Urine Ketones Urine Blood Urine Nitrate Urine Bilirubin Urine Urobilinogen Urine Leukocytes Urine RBC Urine WBC Ur Squamous Epith Cells Urine Mucus Ur Culture Indicated? Blood Type Antibody Screen Crossmatch Quality Measures - VTE Contraindication to Pharmacological VTE Prophylaxis: High Risk of Bleeding Specialty Discharge - Follow Up or Referrals
[2017-04-22] MEDS ORDERED: CARVEDILOL 6.25 MG TABLET PO SCH (08:00)
[2017-04-22] MEDS ORDERED: glyBURIDE 5 MG TABLET PO SCH (08:00)
[2017-04-22] MEDS ORDERED: ASPIRIN EC 81 MG TABLET PO SCH (09:00)
[2017-04-22] MEDS ORDERED: LOSARTAN 25 MG TABLET PO SCH (09:00)
[2017-04-22] MEDS ORDERED: OMEGA 3 ACID ETHYL ESTERS 1 GM CAPSULE PO SCH (09:00)
[2017-04-22] MEDS ORDERED: SODIUM CHLOR 0.45% KCL 20 MEQ 20 MEQ/1,000 ML BAG IV SCH (09:22)
[2017-04-22] MEDS ORDERED: MAGNESIUM SULF RIDER 2 GM in PREMIX 1 EACH IV PRN (09:22)
[2017-04-22] MEDS ORDERED: POTASSIUM CHLORIDE 20 MEQ TABLET PO PRN (09:22)
[2017-04-22] MEDS ORDERED: ALUMINUM/MAGNES/SIMETH MAX STR 30 ML UDCUP PO PRN (09:22)
[2017-04-22] MEDS ORDERED: MORPHINE 2 MG/1 ML SYRINGE IV PRN (09:22)
[2017-04-22] MEDS ORDERED: ACETAMINOPHEN 325 MG TABLET PO PRN (09:22)
[2017-04-22] MEDS ORDERED: ZALEPLON 5 MG CAPSULE PO PRN (09:22)
[2017-04-22] MEDS ORDERED: DEXTROSE 50% 25 GM/50 ML VIAL IV PRN (09:22)
[2017-04-22] MEDS ORDERED: GLUCAGON 1 MG VIAL IM PRN ×2 (09:22)
[2017-04-22] MEDS ORDERED: MAGNESIUM SULF RIDER 4 GM in PREMIX 1 EACH IV PRN (09:22)
[2017-04-22] MEDS ORDERED: ONDANSETRON 4 MG/2 ML VIAL IV PRN (09:22)
[2017-04-22] MEDS ORDERED: MAGNESIUM HYDROXIDE SUSP 30 ML UDCUP PO PRN (09:22)
[2017-04-22] MEDS ORDERED: DEXTROSE 50% 25 GM/50 ML SYRINGE IV PRN (09:22)
[2017-04-22] MEDS ORDERED: oxyCODONE/ACETAMINOPHEN 5-325 MG TABLET PO PRN (09:22)
[2017-04-22] MEDS: LOSARTAN 25 MG TABLET PO SCH (09:28)
[2017-04-22] MEDS: glyBURIDE 5 MG TABLET PO SCH ×2 (09:28→17:32)
[2017-04-22] MEDS: ASPIRIN EC 81 MG TABLET PO SCH (09:28)
[2017-04-22] MEDS: CARVEDILOL 6.25 MG TABLET PO SCH ×2 (09:30→20:48)
[2017-04-22] MEDS: OMEGA 3 ACID ETHYL ESTERS 1 GM CAPSULE PO SCH ×2 (09:30→20:48)
[2017-04-22] MEDS: CHLORHEXIDINE 0.12% ORAL RINSE 60 ML BOTTLE SWISH/SPIT SCH ×3 (09:31→21:04)
[2017-04-22] MEDS: FERROUS SULFATE 325 MG TABLET PO SCH (09:37)
[2017-04-22] MEDS: DOCUSATE SODIUM 100 MG CAPSULE PO SCH (09:44)
[2017-04-22] MEDS: PANTOPRAZOLE 40 MG TABLET PO SCH (09:44)
--- NOTE | 2017-04-22 09:50 | Cardiology Progress Note ---
Assessment and Plan - Time spent with patient Time spent with patient: Greater than 30 minutes (1) Chest pain Status: Resolved Assessment and plan: SEE PLAN OF CARE LISTED BELOW Current Visit: Yes (2) Elevated troponin Status: Acute Assessment and plan: SEE PLAN OF CARE LISTED BELOW Current Visit: Yes (3) NSTEMI (non-ST elevated myocardial infarction) Status: Acute Assessment and plan: SEE PLAN OF CARE LISTED BELOW Current Visit: Yes (4) Hypertension Status: Chronic Assessment and plan: SEE PLAN OF CARE LISTED BELOW Current Visit: Yes (5) Dyslipidemia Status: Chronic Assessment and plan: SEE PLAN OF CARE LISTED BELOW Current Visit: Yes (6) Obesity Status: Chronic Assessment and plan: SEE PLAN OF CARE LISTED BELOW Current Visit: Yes Qualifiers: Obesity classification: adult class 3 (BMI >= 40) Body mass index: BMI 40.0 -44.9 (7) Sleep apnea Status: Chronic Assessment and plan: SEE PLAN OF CARE LISTED BELOW Current Visit: Yes (8) Diabetes Status: Chronic Assessment and plan: SEE PLAN OF CARE LISTED BELOW Current Visit: Yes (9) S/P CABG x 4 Status: Acute Assessment and plan: SEE PLAN OF CARE LISTED BELOW Current Visit: Yes Cardiology - PN: Subj Interval history: 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 History of frequent kidney stones, untreated sleep apnea. Admitted April 14, 2017 with NSTEMI (unstable angina). Underwent cardiac catheterization which revealed [address] Cuello was consulted for CABG. He is currently scheduled to undergo surgery Wednesday of this week. (CV Surgery schedule is full prior to this date.) Echo: EF 40-45%, grade 1 diastolic dysfunction, mild concentric LVH. No significant valvular abnormality. APRIL 16, 2017: Patient is doing well this morning. Has reported complaints of chest heaviness but this was improved with nitroglycerin paste last evening. I have ordered CIEs and EKG to be done now. No arrhythmias. Sleep medicine evaluated patient last night and he did undergo HSAT last evening. He does have a prior history of obstructive sleep apnea originally diagnosed in 2004. In the past, he has been noncompliant with his device for several years but is willing to try a new device. Greater than 45 minutes was spent today discussing multiple comorbidities and new diagnoses. In the past, patient has not followed up routinely with physicians. Hemoglobin A1c 9.4. This is a new diagnosis of diabetes. Initiating oral medications today. Continue sliding scale as needed. LDL 91. We will continue with lipid-lowering agent as he has quit taking his in the past. Triglycerides 319. Will start [place]-3 twice daily. Consult cardiac rehab. Will further discuss with Dr. Harris and await additional recommendations. APRIL 19, 2017: He reports doing well with mild complaints of chest heaviness on and off over the weekend. No arrhythmias. EKG shows normal sinus rhythm. Chest x-ray reviewed with no acute abnormality. Labs reviewed today, white blood cell count noted at 12, will repeat this in the morning as the patient denies any symptoms of infection. His blood glucose levels appear to be responding well to sliding scale of insulin. Will further discuss with Dr. Olmos and await additional recommendations. APRIL 20, 2017: Patient is doing well this morning. Anxious of CABG in the am. Chest pain is unchanged since admission. No arrhythmias. Labs reviewed today , white blood cell count noted at 12. The patient denies chills, cough, or discomfort with urination. The patient remains afebrile, and blood pressure controlled. Will hold Lovenox for surgery planned April 21, 2017. Will discuss further with Dr. Olmos and await additional recommendations. APRIL 22, 2017: POD 1 S/P CABG X 4: SALGUERO - LAD, LUCIANA - RCA, SVG - OM, SVG - DIAGONAL. Tolerated the procedure well without complication and has been returned to our recovery unit in stable condition. He was extubated quickly and has not required pressors. His labs are stable. Incisions are healing well. Encouraged incentive spirometry, cardiac rehab and pulmonary toilet. Continues to take Aspirin, beta-tulio, ARB, lipid-lowering agent. Will maximize as able. No arrhythmia postoperatively. Will further discuss with Dr. Olmos and await additional recommendations. ASSESSMENT/PLAN: 1. NSTEMI - status post revascularization. Stable. 2. 3VCAD - S/P CABG, POD 1. Incentive spirometry. 3. UNTREATED HYPERTENSION - tolerating Carvedilol, ARB. 4. DYSLIPIDEMIA - LDL 91. Crestor 10 mg orally each evening. Continue omega- 3 2 g orally twice daily for triglycerides of 319. 5. DIABETES - continue glipizide 5mg orally BID, continue sliding scale. Has received diabetic education. This is a new diagnosis 6. UNTREATED SLEEP APNEA - appreciate sleep medicines management 7. OBESITY -has received dietary counseling as well. Cardiac rehab has seen patient discussed the merits of rehab. 8. NON-COMPLIANCE - historically, but he is willing to follow recommended instructions. 9. ICM - EF 40% - 45%. Continue current plan of care. Exam (Progress Note) - Constitutional Vitals: Period Temp Pulse Resp BP Sys/Freeman Pulse Ox Last 24 Hr 98.0 F-99.6 F 68-89 12-20 110-164/53-79 91-100 Exam: General: Appears well with no apparent distress. Pleasant and cooperative. Appears comfortable. HEENT: PERRL, normocephalic, atraumatic. Mucous membranes moist. No jaundice noted. Conjunctiva moist and clear, sclerae anicteric. Neck: Unable to assess JVD due to habitus, no thyromegaly or lymphadenopathy noted. No carotid bruit appreciated. Cardiac: Regular rate and rhythm. Rub noted, no obvious murmur. Sternotomy healing well without dehiscence or drainage. Lungs: Clear to auscultation without accessory muscle use to assist the respiratory pattern. Using oxygen only intermittently Abdomen: Soft, bowel sounds normoactive. Nontender and nondistended. No abdominal bruit or thrill noted. No masses noted. Musculoskeletal: No fluid collection. Decreased range of motion is noted. Extremities: No clubbing, cyanosis noted. No edema noted. Upper extremity pulses 2+. Lower extremity pulses 2+. Left lower extremity dressing dry and intact. Capillary refill less than 3 seconds. Skin: No unusual lesions or rashes. No skin breakdown appreciated. Neuro: Awake, alert and oriented 3. Moves all extremities well without hemiparesis or paralysis. No essential tremor is appreciated. Result/EKG - Labs CBC & BMP: 04/22/17 04:20 04/22/17 04:20 Lab Results: I have reviewed the past 24 hour labs Labs: Laboratory Results - last 24 hr 04/20/17 04/21/17 04/21/17 03:57 09:55 10:25 WBC RBC Hgb Hct MCV MCH MCHC RDW Plt Count MPV Neut % (Auto) Lymph % (Auto) [place] % (Auto) Eos % (Auto) Baso % (Auto) Neut # (Auto) Lymph # (Auto) [place] # (Auto) Eos # (Auto) Baso # (Auto) Immature Gran % Nucleated RBC % Immature Gran # Nucleated RBCs # Immature Plt Fraction INR PT Patient/Control Mix Circ Anticoag PTT Patient Temperature 34 36 ABG pH ABG pH at Pt Temp 7.418 7.407 ABG pCO2 ABG pCO2 at Pt Temp 40.7 41.9 ABG pO2 ABG pO2 at Pt Temp 34.9 36.0 ABG HCO3 ABG Total CO2 ABG O2 Saturation ABG Base Excess ABG Sodium 133 L 131 L VBG pH 7.375 7.393 VBG pCO2 47.0 44.0 VBG pO2 43.0 H 38.7 VBG HCO3 25.4 25.2 VBG Total CO2 24.5 23.7 VBG O2 Saturation 75.9 71.4 VBG Base Excess 1.7 1.5 Hemoglobin 12.2 L 12.8 L Hematocrit 37.6 L 39.2 L Potassium 5.3 H 6.1 H* Glucose 240 H 267 H Ionized Calcium FiO2 80.00 80.00 Sodium Chloride Carbon Dioxide Anion Gap BUN Creatinine GFR Calculation BUN/Creatinine Ratio POC Glucose Calculated Osmolality Calcium Venous Ioniz Calcium 1.05 L 1.06 L Magnesium Total Bilirubin Direct Bilirubin AST ALT Alkaline Phosphatase Total Creatine Kinase CK-MB (CK-2) CK and CKMB Interp Troponin I Total Protein Albumin Globulin Albumin/Globulin Ratio Blood Type A POSITIVE Antibody Screen Negative Crossmatch See Detail 04/21/17 04/21/17 04/21/17 10:55 11:12 12:00 WBC 13.6 H RBC 4.50 Hgb 13.6 L Hct 38.1 L MCV 84.7 L MCH 30 MCHC 35.7 RDW 12.7 Plt Count 144 D 198 D MPV 10.0 Neut % (Auto) 81.7 H Lymph % (Auto) 11.5 L [place] % (Auto) 4.1 Eos % (Auto) 0.6 Baso % (Auto) 0.3 Neut # (Auto) 11.1 H Lymph # (Auto) 1.6 [place] # (Auto) 0.6 Eos # (Auto) 0.1 Baso # (Auto) 0.0 Immature Gran % 1.8 Nucleated RBC % 0.0 Immature Gran # 0.24 Nucleated RBCs # 0.00 Immature Plt Fraction 0.0 INR PT Patient/Control Mix Circ Anticoag PTT Patient Temperature 37 ABG pH 7.378 ABG pH at Pt Temp 7.378 ABG pCO2 44.0 ABG pCO2 at Pt Temp 44.0 ABG pO2 71.4 L ABG pO2 at Pt Temp 71.4 ABG HCO3 24.8 ABG Total CO2 22.8 L ABG O2 Saturation 93.8 L ABG Base Excess 0.5 ABG Sodium 133 L VBG pH VBG pCO2 VBG pO2 VBG HCO3 VBG Total CO2 VBG O2 Saturation VBG Base Excess Hemoglobin 12.7 L Hematocrit 39.0 L Potassium 4.6 Glucose 236 H Ionized Calcium 1.18 L FiO2 Sodium Chloride Carbon Dioxide Anion Gap BUN Creatinine GFR Calculation BUN/Creatinine Ratio POC Glucose Calculated Osmolality Calcium Venous Ioniz Calcium Magnesium Total Bilirubin Direct Bilirubin AST ALT Alkaline Phosphatase Total Creatine Kinase CK-MB (CK-2) CK and CKMB Interp Troponin I Total Protein Albumin Globulin Albumin/Globulin Ratio Blood Type Antibody Screen Crossmatch 04/21/17 04/21/17 04/21/17 12:00 12:00 12:00 WBC RBC Hgb Hct MCV MCH MCHC RDW Plt Count MPV Neut % (Auto) Lymph % (Auto) [place] % (Auto) Eos % (Auto) Baso % (Auto) Neut # (Auto) Lymph # (Auto) [place] # (Auto) Eos # (Auto) Baso # (Auto) Immature Gran % Nucleated RBC % Immature Gran # Nucleated RBCs # Immature Plt Fraction INR 1.1 PT Patient/Control Mix 11.3 Circ Anticoag PTT 26.2 Patient Temperature ABG pH 7.362 ABG pH at Pt Temp ABG pCO2 46.7 ABG pCO2 at Pt Temp ABG pO2 71.6 L ABG pO2 at Pt Temp ABG HCO3 24.7 ABG Total CO2 23.0 ABG O2 Saturation 93.2 L ABG Base Excess 0.5 ABG Sodium VBG pH VBG pCO2 VBG pO2 VBG HCO3 VBG Total CO2 VBG O2 Saturation VBG Base Excess Hemoglobin 13.9 L Hematocrit 42.6 Potassium 4.1 4.0 Glucose 201 H 213 H Ionized Calcium FiO2 Sodium 138 Chloride 105 Carbon Dioxide 27 Anion Gap 10.1 BUN 10 Creatinine 0.80 GFR Calculation 157 BUN/Creatinine Ratio 12.00 POC Glucose Calculated Osmolality 279.7 Calcium 8.4 L Venous Ioniz Calcium Magnesium 2.7 H Total Bilirubin 0.80 Direct Bilirubin AST 49 H ALT 53 Alkaline Phosphatase 22 L Total Creatine Kinase CK-MB (CK-2) CK and CKMB Interp Troponin I Total Protein 5.4 L Albumin 3.4 Globulin 2.0 L Albumin/Globulin Ratio 1.7 Blood Type Antibody Screen Crossmatch 04/21/17 04/21/17 04/21/17 12:00 13:00 14:07 WBC RBC Hgb Hct MCV MCH MCHC RDW Plt Count MPV Neut % (Auto) Lymph % (Auto) [place] % (Auto) Eos % (Auto) Baso % (Auto) Neut # (Auto) Lymph # (Auto) [place] # (Auto) Eos # (Auto) Baso # (Auto) Immature Gran % Nucleated RBC % Immature Gran # Nucleated RBCs # Immature Plt Fraction INR PT Patient/Control Mix Circ Anticoag PTT Patient Temperature ABG pH ABG pH at Pt Temp ABG pCO2 ABG pCO2 at Pt Temp ABG pO2 ABG pO2 at Pt Temp ABG HCO3 ABG Total CO2 ABG O2 Saturation ABG Base Excess ABG Sodium VBG pH VBG pCO2 VBG pO2 VBG HCO3 VBG Total CO2 VBG O2 Saturation VBG Base Excess Hemoglobin Hematocrit Potassium Glucose Ionized Calcium FiO2 Sodium Chloride Carbon Dioxide Anion Gap BUN Creatinine GFR Calculation BUN/Creatinine Ratio POC Glucose 185 H 159 H Calculated Osmolality Calcium Venous Ioniz Calcium Magnesium Total Bilirubin Direct Bilirubin AST ALT Alkaline Phosphatase Total Creatine Kinase 255 D CK-MB (CK-2) 12.6 H D CK and CKMB Interp 4.9 Troponin I 2.400 H D Total Protein Albumin Globulin Albumin/Globulin Ratio Blood Type Antibody Screen Crossmatch 04/21/17 04/21/17 04/21/17 14:47 15:57 16:32 WBC RBC Hgb Hct MCV MCH MCHC RDW Plt Count MPV Neut % (Auto) Lymph % (Auto) [place] % (Auto) Eos % (Auto) Baso % (Auto) Neut # (Auto) Lymph # (Auto) [place] # (Auto) Eos # (Auto) Baso # (Auto) Immature Gran % Nucleated RBC % Immature Gran # Nucleated RBCs # Immature Plt Fraction INR PT Patient/Control Mix Circ Anticoag PTT Patient Temperature ABG pH 7.356 7.361 ABG pH at Pt Temp ABG pCO2 48.1 H 49.4 H ABG pCO2 at Pt Temp ABG pO2 79.3 L 116.0 H ABG pO2 at Pt Temp ABG HCO3 24.9 25.7 ABG Total CO2 23.3 23.8 ABG O2 Saturation 94.9 L 98.1 ABG Base Excess 0.7 1.5 ABG Sodium VBG pH VBG pCO2 VBG pO2 VBG HCO3 VBG Total CO2 VBG O2 Saturation VBG Base Excess Hemoglobin 14.2 15.3 Hematocrit 43.6 47.0 Potassium 3.9 3.9 Glucose 153 H 137 H Ionized Calcium FiO2 Sodium Chloride Carbon Dioxide Anion Gap BUN Creatinine GFR Calculation BUN/Creatinine Ratio POC Glucose 116 H Calculated Osmolality Calcium Venous Ioniz Calcium Magnesium Total Bilirubin Direct Bilirubin AST ALT Alkaline Phosphatase Total Creatine Kinase CK-MB (CK-2) CK and CKMB Interp Troponin I Total Protein Albumin Globulin Albumin/Globulin Ratio Blood Type Antibody Screen Crossmatch 04/21/17 04/21/17 04/21/17 18:00 18:02 19:21 WBC RBC Hgb Hct MCV MCH MCHC RDW Plt Count MPV Neut % (Auto) Lymph % (Auto) [place] % (Auto) Eos % (Auto) Baso % (Auto) Neut # (Auto) Lymph # (Auto) [place] # (Auto) Eos # (Auto) Baso # (Auto) Immature Gran % Nucleated RBC % Immature Gran # Nucleated RBCs # Immature Plt Fraction INR PT Patient/Control Mix Circ Anticoag PTT Patient Temperature ABG pH 7.407 ABG pH at Pt Temp ABG pCO2 41.7 ABG pCO2 at Pt Temp ABG pO2 70.5 L ABG pO2 at Pt Temp ABG HCO3 25.5 ABG Total CO2 22.3 L ABG O2 Saturation 93.9 L ABG Base Excess 1.4 ABG Sodium VBG pH VBG pCO2 VBG pO2 VBG HCO3 VBG Total CO2 VBG O2 Saturation VBG Base Excess Hemoglobin 15.2 Hematocrit 46.7 Potassium 4.1 Glucose 216 H Ionized Calcium FiO2 Sodium Chloride Carbon Dioxide Anion Gap BUN Creatinine GFR Calculation BUN/Creatinine Ratio POC Glucose 149 H 208 H Calculated Osmolality Calcium Venous Ioniz Calcium Magnesium Total Bilirubin Direct Bilirubin AST ALT Alkaline Phosphatase Total Creatine Kinase CK-MB (CK-2) CK and CKMB Interp Troponin I Total Protein Albumin Globulin Albumin/Globulin Ratio Blood Type Antibody Screen Crossmatch 04/21/17 04/21/17 04/21/17 20:16 20:19 21:19 WBC RBC Hgb Hct MCV MCH MCHC RDW Plt Count MPV Neut % (Auto) Lymph % (Auto) [place] % (Auto) Eos % (Auto) Baso % (Auto) Neut # (Auto) Lymph # (Auto) [place] # (Auto) Eos # (Auto) Baso # (Auto) Immature Gran % Nucleated RBC % Immature Gran # Nucleated RBCs # Immature Plt Fraction INR PT Patient/Control Mix Circ Anticoag PTT Patient Temperature ABG pH 7.379 ABG pH at Pt Temp ABG pCO2 45.4 ABG pCO2 at Pt Temp ABG pO2 66.2 L ABG pO2 at Pt Temp ABG HCO3 25.2 ABG Total CO2 23.1 ABG O2 Saturation 92.0 L ABG Base Excess 1.1 ABG Sodium VBG pH VBG pCO2 VBG pO2 VBG HCO3 VBG Total CO2 VBG O2 Saturation VBG Base Excess Hemoglobin 14.3 Hematocrit 43.9 Potassium 3.8 Glucose 215 H Ionized Calcium FiO2 Sodium Chloride Carbon Dioxide Anion Gap BUN Creatinine GFR Calculation BUN/Creatinine Ratio POC Glucose 156 H Calculated Osmolality Calcium Venous Ioniz Calcium Magnesium Total Bilirubin Direct Bilirubin AST ALT Alkaline Phosphatase Total Creatine Kinase 623 H D CK-MB (CK-2) 25.1 H D CK and CKMB Interp 4.0 Troponin I 5.330 H D Total Protein Albumin Globulin Albumin/Globulin Ratio Blood Type Antibody Screen Crossmatch 04/21/17 04/21/17 04/21/17 22:07 22:10 23:14 WBC RBC Hgb Hct MCV MCH MCHC RDW Plt Count MPV Neut % (Auto) Lymph % (Auto) [place] % (Auto) Eos % (Auto) Baso % (Auto) Neut # (Auto) Lymph # (Auto) [place] # (Auto) Eos # (Auto) Baso # (Auto) Immature Gran % Nucleated RBC % Immature Gran # Nucleated RBCs # Immature Plt Fraction INR PT Patient/Control Mix Circ Anticoag PTT Patient Temperature ABG pH ABG pH at Pt Temp ABG pCO2 ABG pCO2 at Pt Temp ABG pO2 ABG pO2 at Pt Temp ABG HCO3 ABG Total CO2 ABG O2 Saturation ABG Base Excess ABG Sodium VBG pH VBG pCO2 VBG pO2 VBG HCO3 VBG Total CO2 VBG O2 Saturation VBG Base Excess Hemoglobin Hematocrit Potassium Glucose Ionized Calcium FiO2 Sodium Chloride Carbon Dioxide Anion Gap BUN Creatinine GFR Calculation BUN/Creatinine Ratio POC Glucose 102 162 H 148 H Calculated Osmolality Calcium Venous Ioniz Calcium Magnesium Total Bilirubin Direct Bilirubin AST ALT Alkaline Phosphatase Total Creatine Kinase CK-MB (CK-2) CK and CKMB Interp Troponin I Total Protein Albumin Globulin Albumin/Globulin Ratio Blood Type Antibody Screen Crossmatch 04/22/17 04/22/17 04/22/17 00:12 01:03 02:09 WBC RBC Hgb Hct MCV MCH MCHC RDW Plt Count MPV Neut % (Auto) Lymph % (Auto) [place] % (Auto) Eos % (Auto) Baso % (Auto) Neut # (Auto) Lymph # (Auto) [place] # (Auto) Eos # (Auto) Baso # (Auto) Immature Gran % Nucleated RBC % Immature Gran # Nucleated RBCs # Immature Plt Fraction INR PT Patient/Control Mix Circ Anticoag PTT Patient Temperature ABG pH 7.406 ABG pH at Pt Temp ABG pCO2 43.2 ABG pCO2 at Pt Temp ABG pO2 67.5 L ABG pO2 at Pt Temp ABG HCO3 26.5 H ABG Total CO2 27.8 H ABG O2 Saturation 93.3 L ABG Base Excess 1.5 ABG Sodium VBG pH VBG pCO2 VBG pO2 VBG HCO3 VBG Total CO2 VBG O2 Saturation VBG Base Excess Hemoglobin 14.2 Hematocrit 42.0 Potassium 4.1 Glucose 126 H Ionized Calcium FiO2 Sodium Chloride Carbon Dioxide Anion Gap BUN Creatinine GFR Calculation BUN/Creatinine Ratio POC Glucose 123 H 131 H Calculated Osmolality Calcium Venous Ioniz Calcium Magnesium Total Bilirubin Direct Bilirubin AST ALT Alkaline Phosphatase Total Creatine Kinase CK-MB (CK-2) CK and CKMB Interp Troponin I Total Protein Albumin Globulin Albumin/Globulin Ratio Blood Type Antibody Screen Crossmatch 04/22/17 04/22/17 04/22/17 03:12 04:20 04:20 WBC 19.6 H D RBC 4.46 Hgb 13.4 L Hct 38.4 L MCV 86.1 L MCH 30 MCHC 34.9 RDW 12.9 Plt Count 195 MPV 10.2 Neut % (Auto) 86.2 H Lymph % (Auto) 6.7 L [place] % (Auto) 5.8 Eos % (Auto) 0.0 Baso % (Auto) 0.2 Neut # (Auto) 16.9 H Lymph # (Auto) 1.3 L [place] # (Auto) 1.1 H Eos # (Auto) 0.0 Baso # (Auto) 0.0 Immature Gran % 1.1 Nucleated RBC % 0.0 Immature Gran # 0.22 Nucleated RBCs # 0.00 Immature Plt Fraction 0.0 INR PT Patient/Control Mix Circ Anticoag PTT Patient Temperature ABG pH ABG pH at Pt Temp ABG pCO2 ABG pCO2 at Pt Temp ABG pO2 ABG pO2 at Pt Temp ABG HCO3 ABG Total CO2 ABG O2 Saturation ABG Base Excess ABG Sodium VBG pH VBG pCO2 VBG pO2 VBG HCO3 VBG Total CO2 VBG O2 Saturation VBG Base Excess Hemoglobin Hematocrit Potassium 4.0 Glucose 124 H Ionized Calcium FiO2 Sodium 141 Chloride 105 Carbon Dioxide 29 Anion Gap 11.0 BUN 12 Creatinine 0.60 L GFR Calculation 177 BUN/Creatinine Ratio 20.00 POC Glucose 125 H Calculated Osmolality 281.3 Calcium 8.3 L Venous Ioniz Calcium Magnesium 2.3 Total Bilirubin 0.40 Direct Bilirubin 0.10 AST 59 H ALT 52 Alkaline Phosphatase 21 L Total Creatine Kinase 750 H D CK-MB (CK-2) 30.4 H D CK and CKMB Interp 4.1 Troponin I 6.710 H D Total Protein 5.9 L Albumin 3.5 Globulin 2.4 Albumin/Globulin Ratio 1.4 Blood Type Antibody Screen Crossmatch 04/22/17 04/22/17 04/22/17 04:20 05:42 06:18 WBC RBC Hgb Hct MCV MCH MCHC RDW Plt Count MPV Neut % (Auto) Lymph % (Auto) [place] % (Auto) Eos % (Auto) Baso % (Auto) Neut # (Auto) Lymph # (Auto) [place] # (Auto) Eos # (Auto) Baso # (Auto) Immature Gran % Nucleated RBC % Immature Gran # Nucleated RBCs # Immature Plt Fraction INR PT Patient/Control Mix Circ Anticoag PTT Patient Temperature ABG pH 7.402 ABG pH at Pt Temp ABG pCO2 44.6 ABG pCO2 at Pt Temp ABG pO2 66.8 L ABG pO2 at Pt Temp ABG HCO3 26.4 H ABG Total CO2 24.0 ABG O2 Saturation 92.7 L ABG Base Excess 2.4 ABG Sodium VBG pH VBG pCO2 VBG pO2 VBG HCO3 VBG Total CO2 VBG O2 Saturation VBG Base Excess Hemoglobin 13.7 L Hematocrit 42.2 Potassium 3.9 Glucose 137 H Ionized Calcium FiO2 Sodium Chloride Carbon Dioxide Anion Gap BUN Creatinine GFR Calculation BUN/Creatinine Ratio POC Glucose 106 121 H Calculated Osmolality Calcium Venous Ioniz Calcium Magnesium Total Bilirubin Direct Bilirubin AST ALT Alkaline Phosphatase Total Creatine Kinase CK-MB (CK-2) CK and CKMB Interp Troponin I Total Protein Albumin Globulin Albumin/Globulin Ratio Blood Type Antibody Screen Crossmatch - Diagnostic Findings Procedure: Chest x-ray: report reviewed by me - EKG EKG results: interpreted by me EKG shows: sinus rhythm Quality Measures - VTE Contraindication to Pharmacological VTE Prophylaxis: High Risk of Bleeding Specialty Discharge - Follow Up or Referrals
--- NOTE | 2017-04-22 10:03 | XRay Report ---
Portable chest Date: 04/22/2017 Clinical history: Chest tube removal Comparison: 04/21/2017 Technique: Portable AP sitting chest Findings: The heart is minimally enlarged with recent median sternotomy. Removal of the endotracheal tube, nasogastric tube, [place] catheter and mediastinal chest tubes. Stable right IJ CVP line. Reduced atelectasis/edema with no pneumothorax. No acute osseous findings. Impression: No evidence pneumothorax following removal of the mediastinal chest tubes in patient with recent median sternotomy. Reduced atelectasis/edema. PROCEDURE INTERPRETED AT [facility] DEPARTMENT OF RADIOLOGY Final Report Signed by: Dr. Sommer Green
[2017-04-22] MEDS: ROSUVASTATIN 20 MG TABLET PO SCH (20:48)
[2017-04-22] MEDS ORDERED: ROSUVASTATIN 20 MG TABLET PO SCH (21:00)
[2017-04-23 03:53] LABS: Basophils % 0.1 % (0.0-0.8); Eosinophils % 0.1 % (0.00-10.9); Hematocrit 37.2 VOL% (42.0-52.0); Hemoglobin 12.9 GM/DL (14.0-18.0); Immature Granulocytes % 1.1 %; Immature Granulocytes Absolute 0.18 #; Lymphocytes # 2.6 10*3/uL (1.4-4.0); Lymphocytes % 15.1 % (21.2-54.2); Mean Corpuscular HGB Conc 34.7 GM/DL (32-36); Mean Corpuscular Hemoglobin 30 PG (27-34); Mean Corpuscular Volume 87.5 FL (87-102); Mean Platelet Volume 10.3 FL (9.6-12.0); Monocytes # 1.3 10*3/uL (0.11-0.8); Monocytes % 7.6 % (1.7-12.7); Platelet Count 187 T/CUMM (130-400); Red Blood Count 4.25 MC/CUMM (3.8-5.5); White Blood Count 17.1 T/CUMM (4-12)
[2017-04-23 04:38] LABS: Albumin 3.3 G/DL (3.4-5.0); Bilirubin,Direct 0.2 MG/DL (0.0-0.20); Bilirubin,Indirect 0.4 MG/DL (0.0-1.0); Bilirubin,Total 0.6 MG/DL (0.2-1.0); CKMB % 1.8 %; Calcium 8.5 MG/DL (8.5-10.1); Magnesium 2.6 MG/DL (1.8-2.4); Osmolality,Calculated 282.4 MOS/KG (273-304); Potassium 4.3 MMOL/L (3.5-5.1); Total Protein 5.6 G/DL (6.4-8.3)
[2017-04-23] MEDS: KETOROLAC 30 MG/1 ML VIAL IV SCH ×4 (04:40→21:07)
[2017-04-23 04:52] LABS: Troponin I Only 2.78 NG/ML (0.00-0.045)
[2017-04-23] MEDS ORDERED: FUROSEMIDE 40 MG/4 ML VIAL IV ONE (06:00)
--- NOTE | 2017-04-23 07:44 | XRay Report ---
XR chest 1V portable Indication: Shortness of breath Comparison: 22 April 2017 Findings: The heart and mediastinum are stable in size and configuration. The lines and tubes are unchanged in position. The pulmonary vascularity is slightly prominent but similar to previous exams. No lung infiltrates, effusions, pneumothorax or other abnormality is demonstrated. Impression: No significant change PROCEDURE INTERPRETED AT [facility] DEPARTMENT OF RADIOLOGY Final Report Signed by: Dr. Luke Carranza
--- NOTE | 2017-04-23 08:27 | Cardiology Progress Note ---
Assessment and Plan - Time spent with patient Time spent with patient: Greater than 30 minutes (1) Chest pain Status: Resolved Assessment and plan: SEE PLAN OF CARE LISTED BELOW Current Visit: Yes (2) Elevated troponin Status: Resolved Assessment and plan: SEE PLAN OF CARE LISTED BELOW Current Visit: Yes (3) NSTEMI (non-ST elevated myocardial infarction) Status: Acute Assessment and plan: SEE PLAN OF CARE LISTED BELOW Current Visit: Yes (4) Hypertension Status: Chronic Assessment and plan: SEE PLAN OF CARE LISTED BELOW Current Visit: Yes (5) Dyslipidemia Status: Chronic Assessment and plan: SEE PLAN OF CARE LISTED BELOW Current Visit: Yes (6) Obesity Status: Chronic Assessment and plan: SEE PLAN OF CARE LISTED BELOW Current Visit: Yes Qualifiers: Obesity classification: adult class 3 (BMI >= 40) Body mass index: BMI 40.0 -44.9 (7) Sleep apnea Status: Chronic Assessment and plan: SEE PLAN OF CARE LISTED BELOW Current Visit: Yes (8) Diabetes Status: Chronic Assessment and plan: SEE PLAN OF CARE LISTED BELOW Current Visit: Yes (9) S/P CABG x 4 Status: Acute Assessment and plan: SEE PLAN OF CARE LISTED BELOW Current Visit: Yes (10) CAD (coronary artery disease) Status: Chronic Assessment and plan: SEE PLAN OF CARE LISTED BELOW Current Visit: Yes Cardiology - PN: Subj Interval history: 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 HARRIS SUMMARY: 42WM with risk factors significant for: (Untreated) hypertension, ( newly discovered) dyslipidemia, (newly diagnosed) diabetes, family history of premature coronary artery disease (brother [facility] at 35), obesity, sedentary lifestyle and non-compliance. History of frequent kidney stones, untreated sleep apnea. Admitted April 14, 2017 with NSTEMI (unstable angina). Underwent cardiac catheterization which revealed [address] Cuello was consulted for CABG. He is currently scheduled to undergo surgery Wednesday of this week. (CV Surgery schedule is full prior to this date.) Echo: EF 40-45%, grade 1 diastolic dysfunction, mild concentric LVH. No significant valvular abnormality. APRIL 16, 2017: Patient is doing well this morning. Has reported complaints of chest heaviness but this was improved with nitroglycerin paste last evening. I have ordered CIEs and EKG to be done now. No arrhythmias. Sleep medicine evaluated patient last night and he did undergo HSAT last evening. He does have a prior history of obstructive sleep apnea originally diagnosed in 2005. In the past, he has been noncompliant with his device for several years but is willing to try a new device. Greater than 45 minutes was spent today discussing multiple comorbidities and new diagnoses. In the past, patient has not followed up routinely with physicians. Hemoglobin A1c 9.4. This is a new diagnosis of diabetes. Initiating oral medications today. Continue sliding scale as needed. LDL 91. We will continue with lipid-lowering agent as he has quit taking his in the past. Triglycerides 319. Will start Butler-3 twice daily. Consult cardiac rehab. Will further discuss with Dr. Harris and await additional recommendations. APRIL 19, 2017: He reports doing well with mild complaints of chest heaviness on and off over the weekend. No arrhythmias. EKG shows normal sinus rhythm. Chest x-ray reviewed with no acute abnormality. Labs reviewed today, white blood cell count noted at 12, will repeat this in the morning as the patient denies any symptoms of infection. His blood glucose levels appear to be responding well to sliding scale of insulin. Will further discuss with Dr. Olmos and await additional recommendations. APRIL 20, 2017: Patient is doing well this morning. Anxious of CABG in the am. Chest pain is unchanged since admission. No arrhythmias. Labs reviewed today , white blood cell count noted at 12. The patient denies chills, cough, or discomfort with urination. The patient remains afebrile, and blood pressure controlled. Will hold Lovenox for surgery planned April 21, 2017. Will discuss further with Dr. Olmos and await additional recommendations. APRIL 22, 2017: POD 1 S/P CABG X 4: SALGUERO - LAD, LUCIANA - RCA, SVG - OM, SVG - DIAGONAL. Tolerated the procedure well without complication and has been returned to our recovery unit in stable condition. He was extubated quickly and has not required pressors. His labs are stable. Incisions are healing well. Encouraged incentive spirometry, cardiac rehab and pulmonary toilet. Continues to take Aspirin, beta-tulio, ARB, lipid-lowering agent. Will maximize as able. No arrhythmia postoperatively. Will further discuss with Dr. Olmos and await additional recommendations. APRIL 23, 2017: POD 2 S/P CABG X 4: SALGUERO - LAD, LUCIANA - RCA, SVG - OM, SVG - DIAGONAL. Mr. Peterson is sitting up in the bedside chair. He looks good and feels good. No arrhythmias. Complains of some mild soreness in the chest. Incentive spirometry at the bedside and I have encouraged him to use this frequently. Vital signs are stable, labs are stable. He is to be transferred to telemetry when a bed is available today. Dressings to incisions without drainage. ASSESSMENT/PLAN: 1. NSTEMI - status post revascularization. Stable. 2. 3VCAD - S/P CABG, POD 2. Incentive spirometry at bedside and encouraged. 3. UNTREATED HYPERTENSION - tolerating Carvedilol, ARB. 4. DYSLIPIDEMIA - LDL 91. Crestor 10 mg orally each evening. Continue Butler- 3 2 g orally twice daily for triglycerides of 319. 5. DIABETES - continue Glyburide 5mg orally BID, continue sliding scale. Has received diabetic education. This is a new diagnosis. 6. UNTREATED SLEEP APNEA - appreciate sleep medicines management 7. OBESITY - has received dietary counseling as well. Cardiac rehab has seen patient discussed the merits of rehab. 8. NON-COMPLIANCE - historically, but he is willing to follow recommended instructions. 9. ICM - EF 40% - 45%. Continue current plan of care. Exam (Progress Note) - Constitutional Vitals: Period Temp Pulse Resp BP Sys/Freeman Pulse Ox Last 24 Hr 96.9 F-98.5 F 65-87 15-20 117-186/67-98 91-98 Exam: General: Appears well with no apparent distress. Pleasant and cooperative. Appears comfortable. HEENT: PERRL, normocephalic, atraumatic. Mucous membranes moist. No jaundice noted. Conjunctiva moist and clear, sclerae anicteric. Neck: Unable to assess JVD due to habitus, no thyromegaly or lymphadenopathy noted. No carotid bruit appreciated. Cardiac: Regular rate and rhythm. Rub noted, no obvious murmur. Sternotomy healing well without dehiscence or drainage. Lungs: Scant crackles which improved with cough. No accessory muscle use to assist the respiratory pattern. Not requiring oxygen Abdomen: Soft, bowel sounds normoactive. Nontender and nondistended. No abdominal bruit or thrill noted. No masses noted. Musculoskeletal: No fluid collection. Decreased range of motion is noted. Extremities: No clubbing, cyanosis noted. No edema noted. Upper extremity pulses 2+. Lower extremity pulses 2+. Left lower extremity dressing dry and intact. Capillary refill less than 3 seconds. Skin: No unusual lesions or rashes. No skin breakdown appreciated. Neuro: Awake, alert and oriented 3. Moves all extremities well without hemiparesis or paralysis. No essential tremor is appreciated. Result/EKG - Labs CBC & BMP: 04/23/17 03:43 04/23/17 03:35 Lab Results: I have reviewed the past 24 hour labs Labs: Laboratory Results - last 24 hr 04/20/17 04/22/17 04/22/17 03:57 17:16 23:02 WBC RBC Hgb Hct MCV MCH MCHC RDW Plt Count MPV Neut % (Auto) Lymph % (Auto) [place] % (Auto) Eos % (Auto) Baso % (Auto) Neut # (Auto) Lymph # (Auto) [place] # (Auto) Eos # (Auto) Baso # (Auto) Immature Gran % Nucleated RBC % Immature Gran # Nucleated RBCs # Immature Plt Fraction Sodium Potassium Chloride Carbon Dioxide Anion Gap BUN Creatinine GFR Calculation BUN/Creatinine Ratio Glucose POC Glucose 163 H 215 H Calculated Osmolality Calcium Magnesium Total Bilirubin Direct Bilirubin Indirect Bilirubin AST ALT Alkaline Phosphatase Total Creatine Kinase CK-MB (CK-2) CK and CKMB Interp Troponin I Total Protein Albumin Globulin Albumin/Globulin Ratio Crossmatch See Detail 04/23/17 04/23/17 04/23/17 03:35 03:43 03:59 WBC 17.1 H RBC 4.25 Hgb 12.9 L Hct 37.2 L MCV 87.5 MCH 30 MCHC 34.7 RDW 13.0 Plt Count 187 MPV 10.3 Neut % (Auto) 76.0 H Lymph % (Auto) 15.1 L [place] % (Auto) 7.6 Eos % (Auto) 0.1 Baso % (Auto) 0.1 Neut # (Auto) 13.0 H Lymph # (Auto) 2.6 [place] # (Auto) 1.3 H Eos # (Auto) 0.0 Baso # (Auto) 0.0 Immature Gran % 1.1 Nucleated RBC % 0.0 Immature Gran # 0.18 Nucleated RBCs # 0.00 Immature Plt Fraction 0.0 Sodium 140 Potassium 4.3 Chloride 103 Carbon Dioxide 30 Anion Gap 11.3 BUN 16 Creatinine 0.60 L GFR Calculation 178 BUN/Creatinine Ratio 26.00 H Glucose 147 H POC Glucose 166 H Calculated Osmolality 282.4 Calcium 8.5 Magnesium 2.6 H Total Bilirubin 0.60 Direct Bilirubin 0.20 Indirect Bilirubin 0.4 AST 25 ALT 38 Alkaline Phosphatase 21 L Total Creatine Kinase 420 H D CK-MB (CK-2) 7.6 H D CK and CKMB Interp 1.8 Troponin I 2.780 H D Total Protein 5.6 L Albumin 3.3 L Globulin 2.3 Albumin/Globulin Ratio 1.4 Crossmatch 04/23/17 07:20 WBC RBC Hgb Hct MCV MCH MCHC RDW Plt Count MPV Neut % (Auto) Lymph % (Auto) [place] % (Auto) Eos % (Auto) Baso % (Auto) Neut # (Auto) Lymph # (Auto) [place] # (Auto) Eos # (Auto) Baso # (Auto) Immature Gran % Nucleated RBC % Immature Gran # Nucleated RBCs # Immature Plt Fraction Sodium Potassium Chloride Carbon Dioxide Anion Gap BUN Creatinine GFR Calculation BUN/Creatinine Ratio Glucose POC Glucose 114 H Calculated Osmolality Calcium Magnesium Total Bilirubin Direct Bilirubin Indirect Bilirubin AST ALT Alkaline Phosphatase Total Creatine Kinase CK-MB (CK-2) CK and CKMB Interp Troponin I Total Protein Albumin Globulin Albumin/Globulin Ratio Crossmatch - Diagnostic Findings Procedure: Chest x-ray: report reviewed by me - EKG EKG results: interpreted by me EKG shows: sinus rhythm Quality Measures - VTE Contraindication to Pharmacological VTE Prophylaxis: High Risk of Bleeding Specialty Discharge - Follow Up or Referrals
[2017-04-23] MEDS: CARVEDILOL 6.25 MG TABLET PO SCH ×2 (08:57→21:06)
[2017-04-23] MEDS: glyBURIDE 5 MG TABLET PO SCH ×2 (08:57→16:08)
[2017-04-23] MEDS: DOCUSATE SODIUM 100 MG CAPSULE PO SCH (08:58)
[2017-04-23] MEDS: PANTOPRAZOLE 40 MG TABLET PO SCH (08:58)
[2017-04-23] MEDS: ASPIRIN EC 81 MG TABLET PO SCH (08:58)
[2017-04-23] MEDS: LOSARTAN 25 MG TABLET PO SCH (08:58)
[2017-04-23] MEDS: OMEGA 3 ACID ETHYL ESTERS 1 GM CAPSULE PO SCH ×2 (08:59→21:07)
[2017-04-23] MEDS: CHLORHEXIDINE 0.12% ORAL RINSE 60 ML BOTTLE SWISH/SPIT SCH ×2 (09:04→21:09)
[2017-04-23] MEDS: FERROUS SULFATE 325 MG TABLET PO SCH (09:04)
--- NOTE | 2017-04-23 09:04 | Cardiothoracic Progress Note ---
Cardiothoracic Subjective Interval history: Patient is awake alert and extubated. Vital signs have been stable and is breathing comfortably. Blood work is within normal limits for postoperative day 2. Chest x-ray looks clear. Patient is ready to go to telemetry but there were no beds available yesterday. Hopefully he will be able to be transferred this morning. Overall his progress appears satisfactory. Exam (Progress Note) - Constitutional Vitals: Period Temp Pulse Resp BP Sys/Freeman Pulse Ox Last 24 Hr 96.9 F-98.5 F 65-87 15-20 117-186/67-98 91-98 Result/EKG - Labs CBC & BMP: 04/23/17 03:43 04/23/17 03:35 Labs: Laboratory Results - last 24 hr 04/20/17 04/22/17 04/22/17 03:57 17:16 23:02 WBC RBC Hgb Hct MCV MCH MCHC RDW Plt Count MPV Neut % (Auto) Lymph % (Auto) [place] % (Auto) Eos % (Auto) Baso % (Auto) Neut # (Auto) Lymph # (Auto) [place] # (Auto) Eos # (Auto) Baso # (Auto) Immature Gran % Nucleated RBC % Immature Gran # Nucleated RBCs # Immature Plt Fraction Sodium Potassium Chloride Carbon Dioxide Anion Gap BUN Creatinine GFR Calculation BUN/Creatinine Ratio Glucose POC Glucose 163 H 215 H Calculated Osmolality Calcium Magnesium Total Bilirubin Direct Bilirubin Indirect Bilirubin AST ALT Alkaline Phosphatase Total Creatine Kinase CK-MB (CK-2) CK and CKMB Interp Troponin I Total Protein Albumin Globulin Albumin/Globulin Ratio Crossmatch See Detail 04/23/17 04/23/17 04/23/17 03:35 03:43 03:59 WBC 17.1 H RBC 4.25 Hgb 12.9 L Hct 37.2 L MCV 87.5 MCH 30 MCHC 34.7 RDW 13.0 Plt Count 187 MPV 10.3 Neut % (Auto) 76.0 H Lymph % (Auto) 15.1 L [place] % (Auto) 7.6 Eos % (Auto) 0.1 Baso % (Auto) 0.1 Neut # (Auto) 13.0 H Lymph # (Auto) 2.6 [place] # (Auto) 1.3 H Eos # (Auto) 0.0 Baso # (Auto) 0.0 Immature Gran % 1.1 Nucleated RBC % 0.0 Immature Gran # 0.18 Nucleated RBCs # 0.00 Immature Plt Fraction 0.0 Sodium 140 Potassium 4.3 Chloride 103 Carbon Dioxide 30 Anion Gap 11.3 BUN 16 Creatinine 0.60 L GFR Calculation 178 BUN/Creatinine Ratio 26.00 H Glucose 147 H POC Glucose 166 H Calculated Osmolality 282.4 Calcium 8.5 Magnesium 2.6 H Total Bilirubin 0.60 Direct Bilirubin 0.20 Indirect Bilirubin 0.4 AST 25 ALT 38 Alkaline Phosphatase 21 L Total Creatine Kinase 420 H D CK-MB (CK-2) 7.6 H D CK and CKMB Interp 1.8 Troponin I 2.780 H D Total Protein 5.6 L Albumin 3.3 L Globulin 2.3 Albumin/Globulin Ratio 1.4 Crossmatch 04/23/17 07:20 WBC RBC Hgb Hct MCV MCH MCHC RDW Plt Count MPV Neut % (Auto) Lymph % (Auto) [place] % (Auto) Eos % (Auto) Baso % (Auto) Neut # (Auto) Lymph # (Auto) [place] # (Auto) Eos # (Auto) Baso # (Auto) Immature Gran % Nucleated RBC % Immature Gran # Nucleated RBCs # Immature Plt Fraction Sodium Potassium Chloride Carbon Dioxide Anion Gap BUN Creatinine GFR Calculation BUN/Creatinine Ratio Glucose POC Glucose 114 H Calculated Osmolality Calcium Magnesium Total Bilirubin Direct Bilirubin Indirect Bilirubin AST ALT Alkaline Phosphatase Total Creatine Kinase CK-MB (CK-2) CK and CKMB Interp Troponin I Total Protein Albumin Globulin Albumin/Globulin Ratio Crossmatch Quality Measures - VTE Contraindication to Pharmacological VTE Prophylaxis: High Risk of Bleeding Specialty Discharge - Follow Up or Referrals
[2017-04-23] MEDS: ROSUVASTATIN 20 MG TABLET PO SCH (21:06)
[2017-04-24] MEDS: KETOROLAC 30 MG/1 ML VIAL IV SCH ×4 (03:07→20:48)
[2017-04-24 05:20] LABS: Basophils % 0.3 % (0.0-0.8); Eosinophils # 0.2 10*3/uL (0.0-0.87); Eosinophils % 1.1 % (0.00-10.9); Hematocrit 38.5 VOL% (42.0-52.0); Immature Granulocytes % 1.6 %; Immature Granulocytes Absolute 0.22 #; Lymphocytes # 3.6 10*3/uL (1.4-4.0); Lymphocytes % 25.6 % (21.2-54.2); Mean Corpuscular HGB Conc 33.8 GM/DL (32-36); Mean Corpuscular Hemoglobin 30 PG (27-34); Mean Corpuscular Volume 87.9 FL (87-102); Monocytes % 7.4 % (1.7-12.7); Platelet Count 198 T/CUMM (130-400); Red Blood Count 4.38 MC/CUMM (3.8-5.5); Red Cell Distribution Width 13.2 % (9.3-17.3); White Blood Count 14.1 T/CUMM (4-12)
[2017-04-24 06:07] LABS: Alanine Aminotransferase 33 U/L (16-61); Albumin 3.1 G/DL (3.4-5.0); Alkaline Phosphatase 23 U/L (45-117); Aspartate Amino Transferase 22 U/L (0-37); Bilirubin,Indirect 0.4 MG/DL (0.0-1.0); Blood Urea Nitrogen 20 MG/DL (7-18); Calcium 8.2 MG/DL (8.5-10.1); Glucose 81 MG/DL (74-106); Magnesium 2.3 MG/DL (1.8-2.4); Osmolality,Calculated 282.3 MOS/KG (273-304); Potassium 3.7 MMOL/L (3.5-5.1); Sodium 141 MMOL/L (136-145); Total Protein 5.8 G/DL (6.4-8.3)
--- NOTE | 2017-04-24 08:16 | Cardiothoracic Progress Note ---
Cardiothoracic Subjective Interval history: Patient looks and feels okay. Vital signs have been stable and is breathing comfortably. Laboratory work and chest x-ray all are acceptable for postoperative day 3. We will gradually try to increase his activity but I think he will be ready for discharge before very long. Exam (Progress Note) - Constitutional Vitals: Period Temp Pulse Resp BP Sys/Freeman Pulse Ox Last 24 Hr 97.2 F-99.2 F 75-96 18-20 123-155/63-84 90-93 Result/EKG - Labs CBC & BMP: 04/24/17 02:59 04/24/17 02:59 Labs: Laboratory Results - last 24 hr 04/22/17 04/22/17 04/23/17 07:40 11:32 11:05 WBC RBC Hgb Hct MCV MCH MCHC RDW Plt Count MPV Neut % (Auto) Lymph % (Auto) [place] % (Auto) Eos % (Auto) Baso % (Auto) Neut # (Auto) Lymph # (Auto) [place] # (Auto) Eos # (Auto) Baso # (Auto) Immature Gran % Nucleated RBC % Immature Gran # Nucleated RBCs # Immature Plt Fraction Sodium Potassium Chloride Carbon Dioxide Anion Gap BUN Creatinine GFR Calculation BUN/Creatinine Ratio Glucose POC Glucose 117 H 144 H 159 H Calculated Osmolality Calcium Magnesium Total Bilirubin Direct Bilirubin Indirect Bilirubin AST ALT Alkaline Phosphatase Total Creatine Kinase CK-MB (CK-2) Troponin I Total Protein Albumin Globulin Albumin/Globulin Ratio 04/23/17 04/23/17 04/24/17 15:25 19:49 02:59 WBC 14.1 H RBC 4.38 Hgb 13.0 L Hct 38.5 L MCV 87.9 MCH 30 MCHC 33.8 RDW 13.2 Plt Count 198 MPV 11.0 Neut % (Auto) 64.0 Lymph % (Auto) 25.6 [place] % (Auto) 7.4 Eos % (Auto) 1.1 Baso % (Auto) 0.3 Neut # (Auto) 9.0 H Lymph # (Auto) 3.6 [place] # (Auto) 1.0 H Eos # (Auto) 0.2 Baso # (Auto) 0.0 Immature Gran % 1.6 Nucleated RBC % 0.0 Immature Gran # 0.22 Nucleated RBCs # 0.00 Immature Plt Fraction 0.0 Sodium Potassium Chloride Carbon Dioxide Anion Gap BUN Creatinine GFR Calculation BUN/Creatinine Ratio Glucose POC Glucose 189 H 208 H Calculated Osmolality Calcium Magnesium Total Bilirubin Direct Bilirubin Indirect Bilirubin AST ALT Alkaline Phosphatase Total Creatine Kinase CK-MB (CK-2) Troponin I Total Protein Albumin Globulin Albumin/Globulin Ratio 04/24/17 04/24/17 02:59 07:13 WBC RBC Hgb Hct MCV MCH MCHC RDW Plt Count MPV Neut % (Auto) Lymph % (Auto) [place] % (Auto) Eos % (Auto) Baso % (Auto) Neut # (Auto) Lymph # (Auto) [place] # (Auto) Eos # (Auto) Baso # (Auto) Immature Gran % Nucleated RBC % Immature Gran # Nucleated RBCs # Immature Plt Fraction Sodium 141 Potassium 3.7 Chloride 103 Carbon Dioxide 29 Anion Gap 12.7 BUN 20 H Creatinine 0.60 L GFR Calculation 178 BUN/Creatinine Ratio 33.00 H Glucose 81 POC Glucose 85 Calculated Osmolality 282.3 Calcium 8.2 L Magnesium 2.3 Total Bilirubin 0.60 Direct Bilirubin 0.20 Indirect Bilirubin 0.4 AST 22 ALT 33 Alkaline Phosphatase 23 L Total Creatine Kinase 243 D CK-MB (CK-2) 1.6 D Troponin I 2.160 H D Total Protein 5.8 L Albumin 3.1 L Globulin 2.7 Albumin/Globulin Ratio 1.1 Quality Measures - VTE Contraindication to Pharmacological VTE Prophylaxis: High Risk of Bleeding Specialty Discharge - Follow Up or Referrals
[2017-04-24] MEDS: FERROUS SULFATE 325 MG TABLET PO SCH (08:45)
[2017-04-24] MEDS: CARVEDILOL 6.25 MG TABLET PO SCH ×2 (08:45→20:48)
[2017-04-24] MEDS: DOCUSATE SODIUM 100 MG CAPSULE PO SCH (08:45)
[2017-04-24] MEDS: glyBURIDE 5 MG TABLET PO SCH ×2 (08:45→16:29)
[2017-04-24] MEDS: LOSARTAN 25 MG TABLET PO SCH (08:46)
[2017-04-24] MEDS: OMEGA 3 ACID ETHYL ESTERS 1 GM CAPSULE PO SCH ×2 (08:46→20:48)
[2017-04-24] MEDS: PANTOPRAZOLE 40 MG TABLET PO SCH (08:46)
[2017-04-24] MEDS: ASPIRIN EC 81 MG TABLET PO SCH (08:46)
[2017-04-24] MEDS: CHLORHEXIDINE 0.12% ORAL RINSE 60 ML BOTTLE SWISH/SPIT SCH ×2 (08:47→20:52)
--- NOTE | 2017-04-24 09:11 | XRay Report ---
Portable chest Date: 04/24/2017 Clinical history: Shortness of breath Comparison: 04/23/2017 Technique: Portable AP sitting chest Findings: The heart remains minimally enlarged with recent median sternotomy. Progressive subcutaneous emphysema with associated probable pneumomediastinum. No significant pneumothorax is identified. However there are progressive parenchymal findings especially in the left lower lung zone with small left pleural effusion. Stable right IJ CVP line. Impression: Recent median sternotomy with progressive subcutaneous emphysema and probable pneumomediastinum. No significant pneumothorax is identified but there is progressive parenchymal atelectasis/infiltration/edema especially at the left lung base with small left pleural effusion. Follow-up chest x-ray is recommended as discussed with the patient's nurse Dane Rock at 9:05 AM on 04/24/2017. PROCEDURE INTERPRETED AT [facility] DEPARTMENT OF RADIOLOGY Final Report Signed by: Dr. Sommer Green
[2017-04-24] MEDS ORDERED: FUROSEMIDE 40 MG/4 ML VIAL IV ONE (09:13)
--- NOTE | 2017-04-24 13:52 | Cardiology Progress Note ---
Assessment and Plan (1) NSTEMI (non-ST elevated myocardial infarction) Status: Acute Assessment and plan: 42-year-old male, admitted with non-STEMI, three-vessel disease. CABG planned for Wednesday. Intermittent, mild chest pain. Hemodynamically stable. 04/21: CABG -Resumed aspirin, beta tulio, ARB, statin. -Lasix was stopped. No CHF symptoms with moderate activity -BP, HR well controlled. LVEF was preserved. -Follow up with Dr. Harris in 4 weeks Current Visit: Yes (2) Hypertension Status: Chronic Current Visit: Yes (3) Dyslipidemia Status: Chronic Current Visit: Yes (4) Obesity Status: Chronic Current Visit: Yes Qualifiers: Obesity classification: adult class 3 (BMI >= 40) Body mass index: BMI 40.0 -44.9 (5) Sleep apnea Status: Chronic Current Visit: Yes (6) Diabetes Status: Chronic Current Visit: Yes Cardiology - PN: Subj Interval history: He is walking around, without issues. Blood pressure, heart rate well controlled. Exam (Progress Note) - Constitutional Vitals: Period Temp Pulse Resp BP Sys/Freeman Pulse Ox Last 24 Hr 96.9 F-99.2 F 82-96 18-20 123-155/63-84 90-93 General appearance: no acute distress, morbidly obese - Head Head exam: Present: normal inspection, normocephalic - Eye Eye exam: Absent: conjunctival injection, scleral icterus Pupils: Absent: dilated - ENT ENT exam: Present: normal external ear exam - Neck Neck exam: Present: normal inspection - Respiratory Respiratory exam: Present: clear to auscultation bilaterally. Absent: wheezes - Cardiovascular Cardiovascular exam: Present: regular rate and rhythm. Absent: JVD, systolic murmur - GI/Abdominal GI/Abdominal exam: Present: normal bowel sounds. Absent: distended - Extremities Exam Extremities exam: Present: normal inspection, normal capillary refill. Absent: edema - Back Exam Back exam: Present: normal inspection - Neurological Exam Neurological exam: Present: alert, oriented X3 - Psychiatric Psychiatric exam: Present: normal affect, normal mood - Skin Skin exam: Present: normal color, warm, other (Dressings dry). Absent: cyanosis Result/EKG - Labs CBC & BMP: 04/24/17 02:59 04/24/17 02:59 Lab Results: I have reviewed the past 24 hour labs Labs: Laboratory Results - last 24 hr 04/20/17 04/23/17 04/23/17 03:57 11:05 15:25 WBC RBC Hgb Hct MCV MCH MCHC RDW Plt Count MPV Neut % (Auto) Lymph % (Auto) [place] % (Auto) Eos % (Auto) Baso % (Auto) Neut # (Auto) Lymph # (Auto) [place] # (Auto) Eos # (Auto) Baso # (Auto) Immature Gran % Nucleated RBC % Immature Gran # Nucleated RBCs # Immature Plt Fraction Sodium Potassium Chloride Carbon Dioxide Anion Gap BUN Creatinine GFR Calculation BUN/Creatinine Ratio Glucose POC Glucose 159 H 189 H Calculated Osmolality Calcium Magnesium Total Bilirubin Direct Bilirubin Indirect Bilirubin AST ALT Alkaline Phosphatase Total Creatine Kinase CK-MB (CK-2) Troponin I Total Protein Albumin Globulin Albumin/Globulin Ratio Crossmatch See Detail 04/23/17 04/24/17 04/24/17 19:49 02:59 02:59 WBC 14.1 H RBC 4.38 Hgb 13.0 L Hct 38.5 L MCV 87.9 MCH 30 MCHC 33.8 RDW 13.2 Plt Count 198 MPV 11.0 Neut % (Auto) 64.0 Lymph % (Auto) 25.6 [place] % (Auto) 7.4 Eos % (Auto) 1.1 Baso % (Auto) 0.3 Neut # (Auto) 9.0 H Lymph # (Auto) 3.6 [place] # (Auto) 1.0 H Eos # (Auto) 0.2 Baso # (Auto) 0.0 Immature Gran % 1.6 Nucleated RBC % 0.0 Immature Gran # 0.22 Nucleated RBCs # 0.00 Immature Plt Fraction 0.0 Sodium 141 Potassium 3.7 Chloride 103 Carbon Dioxide 29 Anion Gap 12.7 BUN 20 H Creatinine 0.60 L GFR Calculation 178 BUN/Creatinine Ratio 33.00 H Glucose 81 POC Glucose 208 H Calculated Osmolality 282.3 Calcium 8.2 L Magnesium 2.3 Total Bilirubin 0.60 Direct Bilirubin 0.20 Indirect Bilirubin 0.4 AST 22 ALT 33 Alkaline Phosphatase 23 L Total Creatine Kinase 243 D CK-MB (CK-2) 1.6 D Troponin I 2.160 H D Total Protein 5.8 L Albumin 3.1 L Globulin 2.7 Albumin/Globulin Ratio 1.1 Crossmatch 04/24/17 04/24/17 07:13 11:47 WBC RBC Hgb Hct MCV MCH MCHC RDW Plt Count MPV Neut % (Auto) Lymph % (Auto) [place] % (Auto) Eos % (Auto) Baso % (Auto) Neut # (Auto) Lymph # (Auto) [place] # (Auto) Eos # (Auto) Baso # (Auto) Immature Gran % Nucleated RBC % Immature Gran # Nucleated RBCs # Immature Plt Fraction Sodium Potassium Chloride Carbon Dioxide Anion Gap BUN Creatinine GFR Calculation BUN/Creatinine Ratio Glucose POC Glucose 85 101 Calculated Osmolality Calcium Magnesium Total Bilirubin Direct Bilirubin Indirect Bilirubin AST ALT Alkaline Phosphatase Total Creatine Kinase CK-MB (CK-2) Troponin I Total Protein Albumin Globulin Albumin/Globulin Ratio Crossmatch - EKG EKG results: interpreted by me Quality Measures - VTE Contraindication to Pharmacological VTE Prophylaxis: High Risk of Bleeding Specialty Discharge - Follow Up or Referrals
[2017-04-24] MEDS: ALBUTEROL/IPRATROPIUM 3 ML NEB RESP TX SCH ×2 (15:48→19:21)
[2017-04-24] MEDS: ROSUVASTATIN 20 MG TABLET PO SCH (20:48)
[2017-04-25] MEDS: ALBUTEROL/IPRATROPIUM 3 ML NEB RESP TX SCH ×2 (00:30→07:36)
[2017-04-25] MEDS: KETOROLAC 30 MG/1 ML VIAL IV SCH (03:40)
[2017-04-25 05:21] LABS: Basophils # 0.1 10*3/uL (0.0-0.2); Basophils % 0.4 % (0.0-0.8); Eosinophils # 0.5 10*3/uL (0.0-0.87); Eosinophils % 2.9 % (0.00-10.9); Hematocrit 40.6 VOL% (42.0-52.0); Immature Granulocytes % 1.5 %; Immature Granulocytes Absolute 0.27 #; Lymphocytes # 3.8 10*3/uL (1.4-4.0); Lymphocytes % 20.8 % (21.2-54.2); Mean Corpuscular HGB Conc 34.5 GM/DL (32-36); Mean Corpuscular Hemoglobin 30 PG (27-34); Mean Corpuscular Volume 86.6 FL (87-102); Mean Platelet Volume 10.6 FL (9.6-12.0); Monocytes % 5.7 % (1.7-12.7); Neutrophils # 12.4 10*3/uL (1.4-7.4); Neutrophils % 68.7 % (38.7-73.9); Platelet Count 255 T/CUMM (130-400); Red Blood Count 4.69 MC/CUMM (3.8-5.5); Red Cell Distribution Width 12.9 % (9.3-17.3); White Blood Count 18.1 T/CUMM (4-12)
[2017-04-25 05:51] LABS: Magnesium 2.2 MG/DL (1.8-2.4); Osmolality,Calculated 275.7 MOS/KG (273-304); Potassium 4.1 MMOL/L (3.5-5.1)
[2017-04-25 07:52] VITALS: BP 131/81
--- NOTE | 2017-04-25 08:13 | Discharge Summary ---
Hospital Course - Hospital Course Hospital Course: History of present illness: Patient is a 42-year-old man with long-standing hypertension and question of sleep apnea. He presented to [facility] with recent onset substernal chest discomfort and was found to have positive cardiac enzymes and was transferred to this hospital for further evaluation. He was found to have elevated blood sugars consistent with undiagnosed diabetes and also was hypertensive. He has been on no medications. Patient underwent cardiac catheterization demonstrating critical three-vessel coronary disease and he was referred for bypass surgery. Past medical history review of systems social history and family history are documented in his admission note. Hospital course: Patient underwent catheterization as noted and was found to have three-vessel coronary disease and was referred for bypass surgery. At the time of surgery left ventricular function was noted to be essentially within normal limits and a left internal mammary graft was placed to the anterior descending coronary artery and a right internal mammary graft was placed to the distal right coronary artery. Saphenous vein grafts were placed to the diagonal and obtuse marginal coronary arteries. Postoperative course was largely uncomplicated and the patient was discharged home on the fourth postoperative day. He is to return for follow-up in 8 days for skin staple removal and 30 days for routine follow-up. Discharge medications are listed below. Specialty Discharge - Follow Up or Referrals Follow up with: Efra Cuello MD [Physician] - 05/04/17 Discharge Plan - Discharge Data Disposition: Disch To Home/Self Care Condition at Discharge: Stable Discharge Diet: advance to your usual diet Activity: resume usual activities as tolerated Hygiene: no restrictions Weight Bearing at Discharge: full weight bearing Driving: not for (10 days) - Discharge Medications New glyBURIDE [Diabeta] 5 mg PO BID W/MEALS #60 tablet Aspirin EC Tab 81 mg PO DAILY #30 tablet Carvedilol [Coreg] 6.25 mg PO Q12H #60 tablet Losartan [Cozaar] 12.5 mg PO DAILY #30 tablet [place] 3 Acid Ethyl Esters [Lovaza] 2 gm PO BID #60 capsule oxyCODONE/ACETAMINOPHEN 5-325 [Percocet 5-325] 1 tablet PO Q4H PRN tablet PRN Reason: Pain Mild (1-3) Rosuvastatin [Crestor] 20 mg PO BEDTIME #60 tablet - Follow Up or Referral - Forms/Instructions Instructions: Myocardial Infarction (GEN), Coronary Artery Disease (GEN), Heart Healthy Diet (GEN), Coronary Artery Bypass Graft, Instructor Nurse (GEN), Sternal Precautions, Instructor Nurse (GEN) Exam - Constitutional Vitals: Period Temp Pulse Resp BP Sys/Freeman Pulse Ox Last 24 Hr 96.9 F-98.2 F 80-96 16-21 123-185/63-104 91-99 Discharge Results Procedures and tests throughout hospitalization: Pending Orders 04/20/17 03:57 Fresh Frozen Plasma Routine Red Blood Cells Leuko Red Routine Single Donor Platelets Routine Type and Screen Routine 04/25/17 04:00 XR chest 2V IN AM 04/26/17 04:00 XR chest 2V IN AM BMP w/ Mg [Basic Metabolic Panel w/Mg] IN AM Bilirubin Profile Adult IN AM CBC [Comp Blood Count Auto Diff] IN AM Comp Blood Count Auto Diff IN AM Comprehensive Metabolic Panel IN AM Hepatic (Liver) Panel IN AM Magnesium IN AM Troponin,CKMB & Ck Total IN AM 04/27/17 04:00 XR chest 2V IN AM Bilirubin Profile Adult IN AM Comp Blood Count Auto Diff IN AM Comprehensive Metabolic Panel IN AM Hepatic (Liver) Panel IN AM Magnesium IN AM Troponin,CKMB & Ck Total IN AM Labs on day of discharge: Labs from last 24 hours 04/25/17 04/25/17 04/25/17 07:45 03:44 03:44 WBC 18.1 H RBC 4.69 Hgb 14.0 Hct 40.6 L MCV 86.6 L MCH 30 MCHC 34.5 RDW 12.9 Plt Count 255 D MPV 10.6 Neut % (Auto) 68.7 Lymph % (Auto) 20.8 L [place] % (Auto) 5.7 Eos % (Auto) 2.9 Baso % (Auto) 0.4 Neut # (Auto) 12.4 H Lymph # (Auto) 3.8 [place] # (Auto) 1.0 H Eos # (Auto) 0.5 Baso # (Auto) 0.1 Immature Gran % 1.5 Nucleated RBC % 0.0 Immature Gran # 0.27 Nucleated RBCs # 0.00 Immature Plt Fraction 0.0 Sodium 138 Potassium 4.1 Chloride 101 Carbon Dioxide 29 Anion Gap 12.1 BUN 16 Creatinine 0.70 GFR Calculation 166 BUN/Creatinine Ratio 22.00 H Glucose 99 POC Glucose 97 Calculated Osmolality 275.7 Calcium 9.0 Magnesium 2.2 Crossmatch 0804/24/17 04/24/17 20:46 15:46 11:47 WBC RBC Hgb Hct MCV MCH MCHC RDW Plt Count MPV Neut % (Auto) Lymph % (Auto) [place] % (Auto) Eos % (Auto) Baso % (Auto) Neut # (Auto) Lymph # (Auto) [place] # (Auto) Eos # (Auto) Baso # (Auto) Immature Gran % Nucleated RBC % Immature Gran # Nucleated RBCs # Immature Plt Fraction Sodium Potassium Chloride Carbon Dioxide Anion Gap BUN Creatinine GFR Calculation BUN/Creatinine Ratio Glucose POC Glucose 159 H 192 H 101 Calculated Osmolality Calcium Magnesium Crossmatch 04/20/17 03:57 WBC RBC Hgb Hct MCV MCH MCHC RDW Plt Count MPV Neut % (Auto) Lymph % (Auto) [place] % (Auto) Eos % (Auto) Baso % (Auto) Neut # (Auto) Lymph # (Auto) [place] # (Auto) Eos # (Auto) Baso # (Auto) Immature Gran % Nucleated RBC % Immature Gran # Nucleated RBCs # Immature Plt Fraction Sodium Potassium Chloride Carbon Dioxide Anion Gap BUN Creatinine GFR Calculation BUN/Creatinine Ratio Glucose POC Glucose Calculated Osmolality Calcium Magnesium Crossmatch See Detail DS: Provider Date of admission: 04/14/17 23:58 Primary care physician: . No PCP Attending physician on admission: Efra Cuello MD Consults: 04/16/17 13:20 Consult to Diabetes [place], Educator [CONS] Routine Reason for Senior Sas Developer: Diabetes Education 04/16/17 15:23 Consult to [facility], Educator [CONS] Routine Reason for Senior Sas Developer: Diabetes Education Consult Comment: New diagnosis Consult to Dietitian [CONS] Routine Reason for Dietitian: Dietary Consult Consult Comment: New Diabetic, morbid obesity 04/17/17 08:41 Consult to Dietitian [CONS] Routine Reason for Dietitian: Other Consult Comment: low salt, low cholesterol, diet 04/22/17 09:22 Consult to Cardiac Rehabilitation [CONS] Routine Reason for Cardiac Rehabilitation: Other Consult Comment: Post CABG/heart surgery Consult to [facility], Educator [CONS] Routine Reason for Senior Sas Developer: Diabetes Education Initial Insulin Education Consult Comment: insulin education Consult to Dietitian [CONS] Routine Reason for Dietitian: Dietary Consult Consult Comment: Cardiac, low salt, low cholesterol diet Consult to Physical Therapy [CONS] Routine Reason for Physical Therapy: Other Consult Comment: CV Rehab Discharging clinician: Efra Cuello MD Expected date of discharge: 04/25/17
[2017-04-25] MEDS: ASPIRIN EC 81 MG TABLET PO SCH (08:45)
[2017-04-25] MEDS: DOCUSATE SODIUM 100 MG CAPSULE PO SCH (08:45)
[2017-04-25] MEDS: PANTOPRAZOLE 40 MG TABLET PO SCH (08:45)
[2017-04-25] MEDS: LOSARTAN 25 MG TABLET PO SCH (08:45)
[2017-04-25] MEDS: OMEGA 3 ACID ETHYL ESTERS 1 GM CAPSULE PO SCH (08:45)
[2017-04-25] MEDS: FERROUS SULFATE 325 MG TABLET PO SCH (08:45)
[2017-04-25] MEDS: glyBURIDE 5 MG TABLET PO SCH (08:45)
[2017-04-25] MEDS: CARVEDILOL 6.25 MG TABLET PO SCH (08:46)
[2017-04-25] MEDS: CHLORHEXIDINE 0.12% ORAL RINSE 60 ML BOTTLE SWISH/SPIT SCH (08:46)
--- NOTE | 2017-04-25 09:12 | XRay Report ---
XR chest 2V Date: 04/25/2017 4:00 AM History: Subcutaneous emphysema Comparison: 04/24/2017 Technique: PA and lateral chest Findings: There is smaller in size with recent median sternotomy. Decreased subcutaneous emphysema with smaller pneumomediastinum. Decreased atelectasis with smaller left pleural effusion. Stable right IJ CVP line and osseous structures. Impression: Recent median sternotomy with reduced subcutaneous emphysema and smaller pneumomediastinum. No significant pneumothorax identified with reduced atelectasis at the lung bases with smaller left pleural effusion. PROCEDURE INTERPRETED AT [facility] DEPARTMENT OF RADIOLOGY Final Report Signed by: Dr. Sommer Green
== END 2017-04-25 10:15 | disposition home or self-care (01) | DRG 234 ==
LOC: EDBD → EDUNIT# → N.ED 19:22 → N.EDINP 23:58 → N.TELEN 04-15 00:21 → N.CVR 04-21 09:48 → N.ICU 04-22 12:23 → N.TELES 04-23 12:02
PROC: CLCCHCL (ICD-10-PCS; 2017-04-15 10:45)